=== PATIENT | male | born 1960 | race Caucasian/White ===

== ENCOUNTER 2025-04-17 18:42 | Inpatient (IN) | payer BC, SELFPAY ==
[2025-04-17 18:47] VITALS: BP 144/85
[2025-04-17 18:48] VITALS: BMI 24.3
[2025-04-17 21:02] LABS: Hematocrit 42.9 % (39.0-52.0); Hemoglobin 14.7 g/dL (13.0-18.0); Mean Corp Hgb Conc. 34.3 g/dL (33.0-37.0); Mean Corpuscular Volume 86.7 fL (80.0-94.0); Platelet Count 286 10^3/uL (130-400); Red Cell Dist. Width 13.2 % (11.5-14.5)
[2025-04-17] MEDS: COLACE PO (21:02)
[2025-04-17 21:11] LABS: INR 1.17; PT 15.0 Sec (11.4-14.6)
[2025-04-17 21:12] LABS: APTT 34.7 Sec (23.4-35.0)
[2025-04-17 21:16] LABS: ALT (SGPT) 36 U/L (0-50); AST (SGOT) 30 U/L (17-59); Albumin 4.0 g/dl (3.5-5.0); Alkaline Phosphatase 100 U/L (38-126); Total Protein 6.6 g/dl (6.3-8.2)
[2025-04-17 21:23] LABS: HDL Cholesterol 45 mg/dl; LDL Cholesterol, Calculated 78 mg/dl; Very Low Density Lipoprotein 13 mg/dl (0-30)
[2025-04-17 21:27] LABS: Blood Urea Nitrogen 15 mg/dl (9-20); Calcium 8.8 mg/dl (8.4-10.2); Carbon Dioxide 24 mmol/L (22-30); Chloride 101 mmol/L (98-107); Estimated Creatinine Clearance 105 ml/min; Glucose 115 mg/dl (70-99); Magnesium 2.1 mg/dl (1.6-2.3); Potassium 4.0 mmol/L (3.5-5.1); Sodium 132 mmol/L (135-145); eGFR > 60.00
--- NOTE | 2025-04-17 22:00 | PTCARENOTE ---
Obtained HS blood sugar, result was 86. After docking the Accucheck machine, the results did not focus puller to [facility]. Both accu check machines were not sending information over to [facility]. Sent one accucheck meter to the lab to check on why it
was not sending results.
[2025-04-17 23:19] VITALS: BP 146/78
[2025-04-18] VITALS (7 sets, daily range): BP systolic 106–132; BP diastolic 60–81; BMI 24.4
--- NOTE | 2025-04-18 00:33 | PTCARENOTE ---
Received pt from day shift staff, SUSI Feliz on the monitor, VSS. Pt was a transfer from [facility] post cath, site is the right radial, band on, CDI. Pt made high fall risk due to having a couple syncopal episodes at work and at home last
week. Pt stated on either Thursday or Thursday of last week, pt had an arrhythmia that was questionable Vtach. Orders placed by PA for removal of air and the band and a diet order was placed. PA also was ordered labwork to check electrolytes, coag
and BMP. Pt educated about not lifting anything with the right arm or pushing off the bed, pt verbalized understanding. Pt resting comfortably in bed, call munoz in reach.
--- NOTE | 2025-04-18 00:45 | PTCARENOTE ---
Removed pt's right radial band at 00:45, applied gauze and tegaderm, no oozing or hematoma noted. PT educated on not pushing himself up on right side or to lift anything over 10 lbs, pt verbalized understanding. Pt made NPO after midnight for MVD
workup today.
--- NOTE | 2025-04-18 04:22 | HPS.HSE ---
Family Physician
-
Family Physician: Wero Licea
Chief Complaint
-
Syncopal episodes
History of Present Illness
64 y/o pleasant gentleman with PMH T2DM (has been off meds x 9 months d/t lack of insurance until recently), Hyperlipidemia, GERD, Former smoker, currently vapes who had a syncopal episode on Thursday04/12/25 while at work prompting a visit to
[facility] ED. While at [facility] it was believed that his syncopal episode was d/t his Diabetes as he was noted to be hyperglycemic with hgb A1C of 12. He was treated and discharged home the next day on 04/13/25. While at home he had
another syncopal episode prompting a 911 call from his significant other. Upon arrival of the ambulance pt was awake and was taken to [facility] ED on 04/13/25. While at [place], he had a near syncopal episode and was noted to be in
ventricular tachycardia during that episode. Pt converted spontaneously from VT to NSR and did not require cardioversion. The decision was made to obtain a LHC (EKG was unrevealing, unsure if cardiac markers were obtained) on 04/17/25, which yielded
severe triple vessel CAD. The plan was to transfer pt to [facility] for CABG evaluation, but pt requested transfer to [facility] instead. Of note, pt denies ever having chest pain, SOB, or Diaphoresis. Admits to 'right shoulder pinched nerve discomfort'
which has been waxing and waning x 3 months and vomiting after his syncopal episode at work on Thursday. Pt presented to [facility] the evening of 04/17/25 without complaints, TR band was intact and was later removed. Pt did not come with any imaging or
reports.
Medical History
Past Medical History
Past Medical History: Reports Other
Additional Past Medical History:
-Severe 3V CAD
-Syncope x 3
-Ventricular tachycardia
-T2DM
-Hyperlipidemia
-GERD
-Former smoker (0.5 to 1 pk/day since age 12, quit at age 57)
-Currently vapes daily
-S/P repair of deviated septum, 2018
Past Surgical History: Reports None
Social History
Tobacco: Vaping (current)
Alcohol: Occasional
Drug: None
Personal: Partner
Living: With Family
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
Family History
Family History: Not pertinent
Allergies / Home Medications
Allergies reflects when Allergies were last updated in [facility].
Home Medications with original date entered in [facility]
Allergy/Medication List:
NKDA
Review of Systems
-
A 12 point ROS was completed and negative except as noted: Yes
Cardiac: Reports Syncope
Abdomen/GI: Reports Vomiting
Physical Exam
Vital Signs
Vital Signs
Temp Pulse Resp BP Pulse Ox
98.6 F 65 18 146/78 95
04/17/25 23:19 04/17/25 23:30 04/17/25 23:19 04/17/25 23:19 04/17/25 23:30
Physical Exam
General: Well Developed, Well Nourished, Comfortable and Conversant
HEENT: NormoCephalic, Anicteric, Atraumatic and PERRLA
Respiratory: Clear
Cardiac: S1/S2 and Regular Rhythm
Breast: Deferred by me
GI: Soft, Non Tender, Non Distended and Normal Bowel Sounds
Rectal: Deferred by Provider
Genito-urinary: Deferred by me
Skin: Warm and Dry
Neuro: Awake, Alert, Oriented, AO x 3 and No Motor Deficits
Psych: Calm
Laboratory Results
-
04/17/25 20:46
04/17/25 20:46
Laboratory Results
PT 15.0 Sec (11.4-14.6) H 04/17/25 20:46
INR 1.17 04/17/25 20:46
APTT 34.7 Sec (23.4-35.0) 04/17/25 20:46
Total Bilirubin 0.8 mg/dl (0.2-1.3) 04/17/25 20:46
AST 30 U/L (17-59) 04/17/25 20:46
ALT 36 U/L (0-50) 04/17/25 20:46
Alkaline Phosphatase 100 U/L (38-126) 04/17/25 20:46
Impression/Plan
-
IMPRESSION:
-Severe 3V CAD
-Syncope x 3
-Ventricular tachycardia
-T2DM
-Hyperlipidemia
-GERD
-Former smoker (0.5 to 1 pk/day since age 12, quit at age 57)
-Currently vapes daily
-S/P repair of deviated septum, 2018
PLAN:
-CABG evaluation
-Awaiting Imaging additional medical records from previous hospitals
-Will consult Cardiology
-Will consult Pulmonary
-Will consult Diabetes education/management
-Will cont. to closely monitor
[2025-04-18] MEDS: NOVOLOG FLEXPEN-MODERATE RESISTANCE SC ×2 (06:19→11:20)
--- NOTE | 2025-04-18 06:22 | PTCARENOTE ---
Pt. morning blood sugar obtained, result was 71. Pt resting comfortably in bed, call munoz in reach.
[2025-04-18 07:28] LABS: Urine Character Clear (Clear)
[2025-04-18 07:54] LABS: Glucose - Point of Care 71 mg/dl (70-99)
[2025-04-18 07:57] LABS: Glucose - Point of Care 86 mg/dl (70-99)
--- NOTE | 2025-04-18 08:00 | PTCARENOTE ---
Assumed care of pt from prev nsg shift; Pt AAOX3 w/no c/o CP or SOB. Pt is SB on telemetry monitoring. VSS w/HR in the 50'-60's & BP 116/70 this AM. Plan of care discussed w/pt. R radial site w/dressing C/D/I; no signs or symptoms of bleeding or
hematoma. No additional needs at this time. Pt w/call munoz within reach.
[2025-04-18 08:14] LABS: Urine Squamous Cell 0-2 /LPF (Few)
[2025-04-18 08:15] LABS: Urine Red Blood Cell 21-25 /HPF (0-2)
--- NOTE | 2025-04-18 08:33 | CON.CAR ---
Addendum entered and electronically signed by Jamir Muñiz MD 04/18/25 12:29:
I saw and examined the patient.
The Diagrammer's note was reviewed and I agree with the note.
Comment:
GEN: No distress, awake, Ox3
HEENT: supple, anicteric, mmm
LUNGS: CTA, no wheezes/rales
CV: Reg, S1/S2, 1/6 syst LSB, no gallop
ABD: soft, BS+, NT/ND
EXT: No edema
NEURO: Gross non-focal
SKIN: No rash
PLan:
64-year-old male with past medical history of diabetes, hypertension, and GERD with a past medical history of smoking as well and vaping presents with an episode of syncope/VT. Cardiac cath and revealed three-vessel coronary artery disease. He was
transferred to [facility] for CABG evaluation. He overall feels well. Denies chest pains or shortness of breath.
Check echocardiogram report and carotid ultrasound.
Continue metoprolol, aspirin, rosuvastatin 20 mg daily.
LDL is 78 with HDL of 45.
Continue insulin and sugar control.
Addendum entered and electronically signed by Faiza Pérez PA-C 04/18/25 09:41:
Cardiac catheterization from 04/17/2025 at [facility]: Three-vessel CAD. 70% proximal to mid LAD with IFR of 0.80. Left circumflex: 80% proximal stenosis at bifurcation of OM1. RCA: Proximal 100% JUDGE'S CLERK.
Original Note:
Consultation
Consultation Request
Date/Time Consultation Requested: 04/17/2025
Date/Time Consultation Performed: 04/18/2025
Requesting Provider: Raven Morrison
Performing Provider: Faiza Pérez PA-C for Dr. Muñiz
Reason for Consultation: Multivessel coronary artery disease
Medical History
-
History of Present Illness:
Patient is a 64-year-old male with past medical history significant for type 2 diabetes, hyperlipidemia, GERD and history of smoking who was transferred from [facility] on 04/17/2025 after being diagnosed with multivessel
coronary artery disease. Over last week patient had multiple episodes of lightheaded/dizziness and syncope and was found to have ventricular tachycardia. Patient had syncopal episode on 04/12/2025 while at work prompting him to seek treatment at
[facility] emergency department. He was treated and discharged home the next day. He had a second episode of syncope while sitting on the couch at home on 04/13/2025 prompting his significant other to call 911 and was taken to [facility] 04/13/2025. Patient had several near syncopal episodes where he felt lightheaded and dizzy and was found to have ventricular tachycardia on telemetry. Patient reports he had echocardiogram, carotid ultrasound, CT of
chest. Unfortunately records are not available at time of this evaluation. They have been requested. He underwent cardiac catheterization which demonstrated severe multivessel CAD. Patient requested transfer to [facility] for CT surgery consult.
Patient admits prior to his recent syncopal events he was fairly active going for walks with his dog most days of the week. He denies having chest pain shortness of breath or changes in functional capacity. He does note right arm/shoulder pain
which he reports is from a pinched nerve in his neck. He has history of tobacco abuse/smoking and currently vapes.
Past medical history:
Multivessel coronary artery disease
Ventricular tachycardia
Recurrent syncope secondary to ventricular tachycardia
Type 2 diabetes
Hyperlipidemia
GERD
History of smoking/tobacco abuse
Pulmonary nodules
Cervical radiculopathy
Past Medical History
Past Medical History: Other (See HPI)
Social History
Tobacco: Smoker (Prior history of tobacco abuse quit at age 57, current use of vape)
Alcohol: Occasional (Rare beer)
Drug: None
Personal: Single
Living: Other (Significant other Asuncion)
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
Family History
Family History: Other (Mother from gastric cancer. Father had valvular heart disease)
Allergies / Home Medications
Allergy/AdvReac Type Severity Reaction Status Date / Time
No Known Allergies Allergy Unverified 09/11/12 14:10
�Medication �Instructions �Recorded �Confirmed �Type
penicillin V potassium 500 mg 500 mg PO Q6 #40 tabs 09/11/12 Rx
tablet
Review of Systems
-
History Source: Patient
All other systems: Negative unless noted
Physical Exam
Vital Signs
Temp Pulse Resp BP Pulse Ox
98.3 F 65 17 116/70 98
04/18/25 08:18 04/18/25 08:19 04/18/25 08:18 04/18/25 08:19 04/18/25 08:18
GEN: No distress, awake, Ox3
HEENT: supple, anicteric, mmm
LUNGS: CTA, no wheezes/rales
CV: Reg, S1/S2, no murmur, rub or gallop
ABD: soft, BS+, NT/ND
EXT: No edema, clubbing or cyanosis
NEURO: Gross non-focal
SKIN: No rash, warm, dry, pink
Lab Results
04/17/25 20:46
04/17/25 20:46
Impression / Plan
-
PCP: Wero Licea
Supervisor Testing: Mulugeta Velasco ([facility])
Impression:
Transfer from [facility] 04/17/2025 for CABG
Recurrent syncope secondary to ventricular tachycardia
Multivessel coronary artery disease
Type 2 diabetes
Hyperlipidemia
GERD
History of smoking/tobacco abuse
Pulmonary nodules
Cervical radiculopathy
Echo (OSH): requested
Cardiac cath [facility]: Multivessel coronary artery disease. Official report requested
Plan:
-Recurrent syncopal episodes over last week found to have ventricular tachycardia and underwent cardiac catheterization which demonstrated multivessel coronary artery disease
-CABG evaluation with CT surgery. Date of surgery pending
-Will check echocardiogram to assess LV function
-Given ventricular tachycardia start low-dose beta-wali Lopressor 12.5 mg twice daily.
-Continue to monitor on telemetry. Keep K greater than 4 and mag greater than 2
-Continue aspirin.
-Check lipids. Given multivessel coronary artery disease would utilize moderate intensity at 20 mg
-History of type 2 diabetes. Patient reports labs in drug therapy secondary to loss of insurance in past. Previously was on Farxiga and metformin. Per patient hemoglobin A1c was 12% at outside hospital. Consult speech communication instructor. Patient
currently getting insulin.
-Cardiac catheterization, echocardiogram, carotid ultrasound records have been requested from outside hospitals
[facility] :
Patient is a 64-year-old male with past medical history significant for type 2 diabetes, hyperlipidemia, GERD and history of smoking who was transferred from [facility] on 04/17/2025 after being diagnosed with multivessel
coronary artery disease. Over last week patient had multiple episodes of lightheaded/dizziness and syncope and was found to have ventricular tachycardia. Patient had syncopal episode on 04/12/2025 while at work prompting him to seek treatment at
[facility] emergency department. He was treated and discharged home the next day. He had a second episode of syncope while sitting on the couch at home on 04/13/2025 prompting his significant other to call 911 and was taken to . "[facility] 04/13/2025. Patient had several near syncopal episodes where he felt lightheaded and dizzy and was found to have ventricular tachycardia on telemetry. Patient reports he had echocardiogram, carotid ultrasound, CT of
chest. Unfortunately records are not available at time of this evaluation. They have been requested. He underwent cardiac catheterization which demonstrated severe multivessel CAD. Patient requested transfer to [facility] for CT surgery consult.
Patient admits prior to his recent syncopal events he was fairly active going for walks with his dog most days of the week. He denies having chest pain shortness of breath or changes in functional capacity. He does note right arm/shoulder pain
which he reports is from a pinched nerve in his neck. He has history of tobacco abuse/smoking and currently vapes.
Data Reviewed
-
EKG: Report Reviewed by me, Discussed with Physician, Discussed with Nurse and Discussed with Patient
Labs: Labs Reviewed by me, Discussed with Physician and Discussed with Patient
Old Records: Requested
[2025-04-18 08:52] LABS: Glycohemoglobin (HgbA1c) 11.4 % (4.0-5.9)
[2025-04-18 09:18] LABS: Glucose - Point of Care 105 mg/dl (70-99)
[2025-04-18] MEDS: ASPIR LOW (ENTERIC COATED) 81 MG PO (09:42)
[2025-04-18] MEDS: COLACE PO ×2 (09:42→19:58)
[2025-04-18] MEDS: PROTONIX 40 MG PO (09:42)
[2025-04-18 11:25] LABS: Glucose - Point of Care 117 mg/dl (70-99)
[2025-04-18 12:28] LABS: Glucose - Point of Care 236 mg/dl (70-99)
[2025-04-18] MEDS: LOPRESSOR 12.5 MG PO ×2 (13:15→22:05)
--- NOTE | 2025-04-18 13:33 | PN.DE.MGMTRT ---
Insulin Management
- -
04/18/2025 Diabetes Management Consult
Patient admitted from after multiple episodes of syncope. He had recently been at [facility] 04/12 to 04/13 for syncope. Discharged then had another episode of syncope and went to where he was found to have multivessel CAD. PMH HLD,
GERD, diabetes, vtach, vapes daily. Prior to admission was not taking medication for diabetes. A1C 11.3%, cr .7, eGFR > 60.
Patient is awake, alert and oriented, able to discuss diabetes care. at bedside very supportive. Patient states he is followed by his primary doctor, Anuja for diabetes care, but he recently suggested he see endocrine. He has an appointment
with Natali Patterson in July 2025. States he has a [employer] meter but has not really used in in a long time. He was prescribed Farxiga and metformin but had insurance issues and did not take them for 1 year. He states at they gave his a long
acting insulin 36 units daily.
Patient received no insulin since admission. Fasting glucose today 105, glucose after breakfast pre lunch 236. Will give 15 units lantus now and start 4 units novolog AC with Moderate corrective insulin.
Discussed with nurse.
Will follow.
Diabetes History
- -
Type of Diabetes: 2
Pre-Admission Diabetes Regimen
04/17/25
20:46
Creatinine 0.7
Lab Results
Hemoglobin A1c 11.4 % (4.0-5.9) H 04/17/25 20:46
Insulin Pump Settings
IP Diabetes Regimen
04/17/25 04/17/25 04/18/25
20:46 21:22 06:17
Glucose 115 H
POC Glucose 86 71
04/18/25 04/18/25 04/18/25
09:17 11:08 12:27
Glucose
POC Glucose 105 H 117 H 236 H
Meal type: Breakfast
Meal type: Dinner
Amount consumed: 100%
Amount consumed: 100%
Patient Education
--- NOTE | 2025-04-18 14:08 | CM ---
Chart reviewed. Patient is pending CT Surgery evaluation. Patient is independent of ADLS, lives with his fiance in a 2 STH, 2 ABHI, 0 DME. Plan is for the patient to return home. CM to follow
[2025-04-18 14:43] LABS: Glucose - Point of Care 260 mg/dl (70-99)
[2025-04-18] MEDS: NOVOLOG FLEXPEN 4 UNITS SC ×2 (14:44→17:25)
[2025-04-18] MEDS: LANTUS 0.15 UNITS SC (14:44)
--- NOTE | 2025-04-18 16:40 | W.PN.UPDATE ---
Update Note
Progress Note Update
STS RISK SCORE
Procedure Type:�Isolated CABG
Perioperative Outcome Estimate %
Operative Mortality 0.644%
Morbidity & Mortality 4.22%
Stroke 1.04%
Renal Failure 0.383%
Reoperation 1.96%
Prolonged Ventilation 2.02%
Deep Sternal Wound Infection 0.101%
Long Hospital Stay (>14 days) 2.41%
Short Hospital Stay (<6 days)* 60.7%
Clinical Summary
Planned Surgery: Isolated CABG, Urgent, First cardiovascular surgery
Demographics: 64 year old, male, 72.7kg, 173cm, BMI: 24.3 kg/m�
Lab Values: Creatinine: 0.7 mg/dL, Hematocrit: 42.9%, WBC Count: 10 10�/�L, Platelet Count: 536274 cells/�L
Substance Abuse: Never smoker
Risk Factors / Comorbidities: Diabetes Mellitus , Hypertension
Pulmonary RF: Moderate CLD
Cardiac Status: NYHA Class II, Ejection Fraction = 63%
Coronary Artery Disease: 3 vessels diseased, Proximal LAD Stenosis >=70%, Unstable Angina
[2025-04-18 16:47] LABS: Glucose - Point of Care 178 mg/dl (70-99)
[2025-04-18] MEDS: NOVOLOG FLEXPEN-MODERATE RESISTANCE 1 UNITS SC (17:24)
[2025-04-18] MEDS: CRESTOR 20 MG PO (17:27)
[2025-04-18] MEDS: OCEAN, SALINE MIST 2 SPRAYS NASAL (22:07)
[2025-04-18 22:28] LABS: Glucose - Point of Care 193 mg/dl (70-99)
--- NOTE | 2025-04-18 23:16 | PTCARENOTE ---
Pt rec'd at change of shift awake,alert no c/o cp. Sinus on telemetry. Pre op teaching begun for CABG prep tomm night. Right radial site with DDI, good radial pulse. Pt provided Living will paperwork. Copies made and placed in chart. Pt given back
original.
[2025-04-19] VITALS (9 sets, daily range): BP systolic 126–151; BP diastolic 64–101; BMI 24.2
[2025-04-19 04:44] LABS: Hematocrit 42.4 % (39.0-52.0); Hemoglobin 14.5 g/dL (13.0-18.0); Mean Corp Hgb Conc. 34.2 g/dL (33.0-37.0); Mean Corpuscular Volume 89.1 fL (80.0-94.0); Platelet Count 254 10^3/uL (130-400); Red Cell Dist. Width 13.0 % (11.5-14.5)
[2025-04-19 05:37] LABS: Blood Urea Nitrogen 14 mg/dl (9-20); Calcium 8.8 mg/dl (8.4-10.2); Carbon Dioxide 28 mmol/L (22-30); Chloride 102 mmol/L (98-107); Estimated Creatinine Clearance 91 ml/min; Glucose 136 mg/dl (70-99); Magnesium 2.0 mg/dl (1.6-2.3); Potassium 4.1 mmol/L (3.5-5.1); Sodium 135 mmol/L (135-145); eGFR > 60.00
[2025-04-19 07:46] LABS: Glucose - Point of Care 156 mg/dl (70-99)
[2025-04-19] MEDS: NOVOLOG FLEXPEN-MODERATE RESISTANCE 1 UNITS SC ×2 (08:51→13:30)
[2025-04-19] MEDS: NOVOLOG FLEXPEN 4 UNITS SC ×3 (08:52→17:30)
[2025-04-19] MEDS: COLACE 100 MG PO ×2 (08:54→20:08)
[2025-04-19] MEDS: ASPIR LOW (ENTERIC COATED) 81 MG PO (08:54)
[2025-04-19] MEDS: PROTONIX 40 MG PO (08:54)
[2025-04-19] MEDS: LOPRESSOR 12.5 MG PO ×2 (08:54→20:03)
[2025-04-19] MEDS: LANTUS 0.15 UNITS SC (10:45)
--- NOTE | 2025-04-19 10:48 | W.PN.CARDCBS ---
Today's Communication / Plan
-
CABG evaluation with CT surgery ongoing, date of surgery pending
Echo with preserved EF
Reviewed cath with pt.
Cont ASA, Crestor, Metoprolol
Lipids with LDL goal <70, LDL was 78.
History of type 2 diabetes, poor control.
Patient reports lapse in drug therapy secondary to loss of insurance in past. Previously was on Farxiga and metformin. Per patient hemoglobin A1c was 12% at outside hospital.
DM educator
Impression / Plan
-
.
PCP: Wero Licea
Pathology Manager: Mulugeta Velasco ([facility])
Impression:
Transfer from [facility] 04/17/2025 for CABG
Recurrent syncope secondary to ventricular tachycardia
Multivessel coronary artery disease
Type 2 diabetes
Hyperlipidemia
GERD
History of smoking/tobacco abuse
Pulmonary nodules
Cervical radiculopathy
Cardiac catheterization from 04/17/2025 at [facility]: Multivessel coronary artery disease 70% proximal to mid LAD with IFR of 0.80. Left circumflex: 80% proximal stenosis at bifurcation of OM1. RCA: Proximal 100% CHARGEBACK SPECIALIST.
Echo [facility] Apr 18 2025: Ejection fraction is 60-65%, mild LVH, no significant valve dz.
Plan:
64-year-old male with past medical history of diabetes, hypertension, and GERD with a past medical history of smoking as well and vaping presents with an episode of syncope/VT. Cardiac cath and revealed three-vessel coronary artery disease. He was
transferred to [facility] for CABG evaluation.
-Recurrent syncopal episodes over last week found to have ventricular tachycardia and underwent cardiac catheterization which demonstrated multivessel coronary artery disease
CABG evaluation with CT surgery ongoing, date of surgery pending
Echo with preserved EF
Reviewed cath with pt.
Cont ASA, Crestor, Metoprolol
Lipids with LDL goal <70, LDL was 78.
History of type 2 diabetes, poor control.
Patient reports lapse in drug therapy secondary to loss of insurance in past. Previously was on Farxiga and metformin. Per patient hemoglobin A1c was 12% at outside hospital.
DM educator
[facility] :
Patient is a 64-year-old male with past medical history significant for type 2 diabetes, hyperlipidemia, GERD and history of smoking who was transferred from [facility] on 04/17/2025 after being diagnosed with multivessel
coronary artery disease. Over last week patient had multiple episodes of lightheaded/dizziness and syncope and was found to have ventricular tachycardia. Patient had syncopal episode on 04/12/2025 while at work prompting him to seek treatment at ""[facility] emergency department. He was treated and discharged home the next day. He had a second episode of syncope while sitting on the couch at home on 04/13/2025 prompting his significant other to call 911 and was taken to [facility] 04/13/2025. Patient had several near syncopal episodes where he felt lightheaded and dizzy and was found to have ventricular tachycardia on telemetry. Patient reports he had echocardiogram, carotid ultrasound, CT of
chest. Unfortunately records are not available at time of this evaluation. They have been requested. He underwent cardiac catheterization which demonstrated severe multivessel CAD. Patient requested transfer to [facility] for CT surgery consult.
Patient admits prior to his recent syncopal events he was fairly active going for walks with his dog most days of the week. He denies having chest pain shortness of breath or changes in functional capacity. He does note right arm/shoulder pain
which he reports is from a pinched nerve in his neck. He has history of tobacco abuse/smoking and currently vapes.
Progress Note - Pathology Manager
Subjective
Date of Service: April 19, 2025
Pt seen and examined. No complaints. No chest pain or shortness of breath.
Objective
Labs:
04/19/25 04:30
04/19/25 04:30
Labs
Hgb 14.5 g/dL (13.0-18.0) 04/19/25 04:30
Hct 42.4 % (39.0-52.0) 04/19/25 04:30
Plt Count 254 10^3/uL (130-400) 04/19/25 04:30
PT 15.0 Sec (11.4-14.6) H 04/17/25 20:46
INR 1.17 04/17/25 20:46
APTT 34.7 Sec (23.4-35.0) 04/17/25 20:46
Sodium 135 mmol/L (135-145) 04/19/25 04:30
Potassium 4.1 mmol/L (3.5-5.1) 04/19/25 04:30
BUN 14 mg/dl (9-20) 04/19/25 04:30
Creatinine 0.8 mg/dL (0.7-1.3) 04/19/25 04:30
Glucose 136 mg/dl (70-99) H 04/19/25 04:30
Vital Signs and I&O:
Vital Signs
Temp Pulse Resp BP Pulse Ox
98.0 F 68 18 127/71 95
04/19/25 07:50 04/19/25 09:30 04/19/25 07:50 04/19/25 07:50 04/19/25 07:50
Vital Signs
Temp Pulse Resp BP Pulse Ox
98.0 F 68 18 127/71 95
04/19/25 07:50 04/19/25 09:30 04/19/25 07:50 04/19/25 07:50 04/19/25 07:50
Intake & Output
04/17/25 04/18/25 04/19/25 04/20/25
06:59 06:59 06:59 06:59
Intake Total 480 / 480 480 / 480
Balance 480 / 480 480 / 480
Physical Exam
Physical Exam
General: No acute distress, AAOX3
Neck: Negative JVD
Heart: Regular, Negative S3 positive S1/S2, Negative S4, No murmur
Lungs: CTA b/l, negative wheezes/rales/rhonchi
Abd: Positive BS, NT/ND, neg rebound/rigidity/guarding
Ext: Negative cyanosis/clubbing/edema
Neuro: nonfocal
[2025-04-19 12:59] LABS: Glucose - Point of Care 191 mg/dl (70-99)
--- NOTE | 2025-04-19 13:02 | PTCARENOTE ---
04/19/2025 DIABETES EDUCATION CONSULT
I met with patient to review diabetes management. He has had DM2 for years, in the past had an A1c of 6.7% when exercising and most recent A1c of 8.2%. A1c on 04/17/2025 is 11.4%. He will have CABG on 04/19/2025, was previously at other ""hospitals for cardiac evaluation and insulin instruction. Was prescribed medications on discharge but did not pickling machine operator at pharmacy. Advised patient to reconcile meds with our MD's and follow [facility] discharge instructions. He has a first appt
with Erin Hernandes at [facility] in July,. His original appointment was last week in April but he pushed it back to July 2025.
I educated on physiology of T2D, organ damage, managing with medications, monitoring BG, nutrition, activity, sleep and managing stress. I reinforced signs of hyperglycemia, hypoglycemia and hypoglycemia protocol; BS parameters and recommended HbA1c
goals, glucometer and CGM instructions, glucose tracker, medic alert bracelet and outpatient DSME program. Written material provided.
He has a glucometer, declined demonstration. I educated patient to ensure his test strips are not .
I educated and demonstrated on insulin injection technique, timing, and storage. Discussed long and short acting insulin; onset/peak/duration, and encouraged her to administer self injections with RN supervision while admitted. Spoke to RN.
Discussed normal target glucose ranges and a monitoring schedule 15 minutes before each meal when prescribed Novolog, and before bedtime.
Encouraged patient to follow up with PCP for post d/c appointment and to monitor medication and blood glucose levels. Patient verbalized understanding.
--- NOTE | 2025-04-19 13:13 | PN.DE.MGMTRT ---
Insulin Management
- -
04/19/2025 Diabetes Management Consult Follow up
Patient admitted from after multiple episodes of syncope. He had recently been at [facility] 04/12 to 04/13 for syncope. Discharged then had another episode of syncope and went to where he was found to have multivessel CAD. PMH HLD,
GERD, diabetes, vtach, vapes daily. Prior to admission was not taking medication for diabetes. A1C 11.3%, cr .7, eGFR > 60.
Patient is awake, alert and oriented, able to discuss diabetes care. Sister at bedside very supportive. Patient states he is followed by his primary doctor, Anuja for diabetes care, but he recently suggested he see endocrine. He has an
appointment with Natali Patterson in July 2025. States he has a [employer] meter but has not really used in in a long time. He was prescribed Farxiga and metformin but had insurance issues and did not take them for 1 year. He states at they
gave his a long acting insulin 36 units daily.
04/18 Received no insulin since admission. Fasting glucose today 105, glucose after breakfast pre lunch 236. 15 units lantus now and start 4 units novolog AC with Moderate corrective insulin.
04/19 Fasting glucose 136. Will continue current regimen lantus 15 units AM with novolog 4 units AC and moderate corrective insulin.
Discussed with nurse.
Will follow.
Diabetes History
- -
Type of Diabetes: 2 requiring insulin
Pre-Admission Diabetes Regimen
04/19/25
04:30
Creatinine 0.8
Lab Results
Hemoglobin A1c 11.4 % (4.0-5.9) H 04/17/25 20:46
Insulin Pump Settings
IP Diabetes Regimen
04/18/25 04/18/25 04/18/25
14:42 16:46 22:27
Glucose
POC Glucose 260 H 178 H 193 H
04/19/25 04/19/25 04/19/25
04:30 07:44 12:58
Glucose 136 H
POC Glucose 156 H 191 H
Meal type: Breakfast
Meal type: Dinner
Amount consumed: 100%
Amount consumed: 100%
Patient Education
--- NOTE | 2025-04-19 14:00 | CM ---
Chart reviewed. Patient is independent of ADLS, lives with his fiance in a 2 STH, 2 ABHI, 0 DME. Reviewed preoperative and postoperative instructions and restrictions with patient's sister Maritza,along with showering instructions. Patient did
not want to hear. Gave patient's sister a cardiac surgery book. Patient is agreeable to a home visit by CT Transitional Care RN. Plan is for the patient to return home with CT Transitional RN. CM to follow
[2025-04-19 17:22] LABS: Glucose - Point of Care 211 mg/dl (70-99)
[2025-04-19] MEDS: NOVOLOG FLEXPEN-MODERATE RESISTANCE 3 UNITS SC (17:30)
[2025-04-19] MEDS: CRESTOR 20 MG PO (17:31)
[2025-04-19 21:57] LABS: Glucose - Point of Care 132 mg/dl (70-99)
--- NOTE | 2025-04-19 23:37 | PTCARENOTE ---
Received pt from previous shift, AAOx3, NS on the monitor in the 70's, VSS. Right radial cath site is MICHAEL and ecchymotic, with good pulse. Pt. is pre op for CABG in the AM. Pt was clipped and washed self at the sink without feeling lightheaded or
dizzy. All prep education was explained to the pt and pt verbalized understanding. Pt resting comfortably in bed and will call if needed.
[2025-04-20] VITALS (12 sets, daily range): BP systolic 89–123; BP diastolic 53–77; BMI 24.0
[2025-04-20 05:47] LABS: Blood Urea Nitrogen 14 mg/dl (9-20); Calcium 9.2 mg/dl (8.4-10.2); Carbon Dioxide 31 mmol/L (22-30); Chloride 100 mmol/L (98-107); Estimated Creatinine Clearance 81 ml/min; Glucose 131 mg/dl (70-99); Magnesium 2.1 mg/dl (1.6-2.3); Potassium 4.2 mmol/L (3.5-5.1); Sodium 137 mmol/L (135-145); eGFR > 60.00
[2025-04-20] MEDS: MAGNESIUM OXIDE 400 MG PO (06:25)
[2025-04-20] MEDS: LOPRESSOR 12.5 MG PO (06:25)
[2025-04-20] MEDS: PROTONIX 40 MG PO (06:25)
[2025-04-20] MEDS: BACTROBAN 2% OINTMENT 1 APPLIC NASAL ×2 (06:27→19:53)
--- NOTE | 2025-04-20 06:29 | W.CVOR.SURPR ---
CVOR Surgeon Immed Pre Op
-
I have examined this patient prior to performance of the scheduled procedure.
The patient's condition is unchanged from the time of the dictated/written History and
Physical and the patient is able to undergo the scheduled procedure.
--- NOTE | 2025-04-20 06:56 | PTCARENOTE ---
Second round of OR prep hygiene complete. Pt did CHG shower at the sink and then the CHG bath cloths. Educated pt on preop medications that were given and pt verbalized understanding. Pt has no complaints at this time and is resting comfortably in
bed with call munoz if needed.
--- NOTE | 2025-04-20 08:06 | PN.DE.MGMTRT ---
Insulin Management
- -
04/20/2025 Diabetes Management Consult Follow up
Patient admitted from 04/17 after multiple episodes of syncope. He had recently been at [facility] 04/12 to 04/13 for syncope. Discharged then had another episode of syncope and went to where he was found to have multivessel CAD. PMH
HLD, GERD, diabetes, vtach, vapes daily. Prior to admission was not taking medication for diabetes. A1C 11.3%, cr .9, eGFR > 60.
Patient is for OR today for CABG, not in room. Yesterday Fasting glucose 136. Received lantus 15 units AM with novolog 4 units AC and moderate corrective insulin.
Patient to receive Critical Care glycemic protocol insulin infusion s/p OR.
Discussed with nurse.
Will follow.
Diabetes History
- -
Type of Diabetes: 2 requiring insulin
Pre-Admission Diabetes Regimen
04/20/25
05:00
Creatinine 0.9
Lab Results
Hemoglobin A1c 11.4 % (4.0-5.9) H 04/17/25 20:46
Insulin Pump Settings
IP Diabetes Regimen
04/19/25 04/19/25 04/19/25
12:58 17:21 21:56
Glucose
POC Glucose 191 H 211 H 132 H
04/20/25
05:00
Glucose 131 H
POC Glucose
Meal type: Breakfast
Amount consumed: 100%
Amount consumed: 100%
Patient Education
[2025-04-20 08:18] LABS: ACT+ - POC 115 Seconds (82-134)
[2025-04-20 08:19] LABS: Glucose - Point of Care 142 mg/dl (70-99)
[2025-04-20 08:52] LABS: Urine Character Clear (Clear)
[2025-04-20 09:04] LABS: Urine Squamous Cell 16-20 /LPF (Few)
[2025-04-20 10:07] LABS: ACT+ - POC 929 Seconds (82-134)
--- NOTE | 2025-04-20 10:23 | CM ---
pt in OR today, cm to follow.
[2025-04-20 10:31] LABS: B.E. - POC 0.4 mmol/L; Glucose - POC 176 mg/dl (70-99); HCO3 - POC 26 mmol/L (21-28); Hematocrit - POC 40 % PCV (42-52); Hemodilution- POC No; Hemoglobin Calculated - POC 13.6; Ionized Calcium - POC 1.13 mmol/L (1.15-1.33); Lactate - POC 0.35 mmol/L (0.36-0.75); O2 Saturation %Calculated-POC 100.0 % (94-98); PCO2 - POC 43 mmHg (35-48); PO2 - POC 379 mmHg (83-108); Potassium - POC 3.7 mmol/L (3.5-5.1); Sodium - POC 140 mmol/L (136-145); Specimen Type - POC Arterial; pH - POC 7.39 (7.35-7.45)
[2025-04-20 10:48] LABS: ACT+ - POC 800 Seconds (82-134)
[2025-04-20 11:00] LABS: B.E. - POC 2.4 mmol/L; Glucose - POC 141 mg/dl (70-99); HCO3 - POC 24 mmol/L (21-28); Hematocrit - POC 32 % PCV (42-52); Hemodilution- POC Yes; Hemoglobin Calculated - POC 10.9; Ionized Calcium - POC 0.93 mmol/L (1.15-1.33); Lactate - POC 0.35 mmol/L (0.36-0.75); O2 Saturation %Calculated-POC 100.0 % (94-98); PCO2 - POC 29 mmHg (35-48); PO2 - POC 416 mmHg (83-108); Potassium - POC 5.0 mmol/L (3.5-5.1); Sodium - POC 138 mmol/L (136-145); Specimen Type - POC Arterial; pH - POC 7.54 (7.35-7.45)
[2025-04-20] MEDS: NOVOLOG FLEXPEN SC ×4 (11:07→16:30)
[2025-04-20] MEDS: NOVOLOG FLEXPEN-MODERATE RESISTANCE SC ×2 (11:08→14:32)
[2025-04-20] MEDS: COLACE PO (11:08)
[2025-04-20] MEDS: ASPIR LOW (ENTERIC COATED) PO (11:08)
[2025-04-20] MEDS: LANTUS SC (11:08)
[2025-04-20] MEDS: PROTONIX PO (11:08)
[2025-04-20 11:17] LABS: ACT+ - POC 675 Seconds (82-134)
[2025-04-20 12:02] LABS: ACT+ - POC 537 Seconds (82-134)
[2025-04-20 12:17] LABS: B.E. - POC 1.0 mmol/L; Glucose - POC 165 mg/dl (70-99); HCO3 - POC 25 mmol/L (21-28); Hematocrit - POC 32 % PCV (42-52); Hemodilution- POC Yes; Hemoglobin Calculated - POC 10.8; Ionized Calcium - POC 1.00 mmol/L (1.15-1.33); Lactate - POC < 0.30 mmol/L (0.36-0.75); O2 Saturation %Calculated-POC 99.9 % (94-98); PCO2 - POC 38 mmHg (35-48); PO2 - POC 274 mmHg (83-108); Potassium - POC 4.4 mmol/L (3.5-5.1); Sodium - POC 138 mmol/L (136-145); Specimen Type - POC Arterial; pH - POC 7.43 (7.35-7.45)
[2025-04-20 12:29] LABS: B.E. - POC 2.0 mmol/L; Glucose - POC 159 mg/dl (70-99); HCO3 - POC 27 mmol/L (21-28); Hematocrit - POC 28 % PCV (42-52); Hemodilution- POC Yes; Hemoglobin Calculated - POC 9.7; Ionized Calcium - POC 0.99 mmol/L (1.15-1.33); Lactate - POC 0.63 mmol/L (0.36-0.75); O2 Saturation %Calculated-POC 99.9 % (94-98); PCO2 - POC 40 mmHg (35-48); PO2 - POC 310 mmHg (83-108); Potassium - POC 3.7 mmol/L (3.5-5.1); Sodium - POC 140 mmol/L (136-145); Specimen Type - POC Arterial; pH - POC 7.43 (7.35-7.45)
[2025-04-20 12:37] LABS: ACT+ - POC 460 Seconds (82-134)
[2025-04-20 12:56] LABS: B.E. - POC 3.6 mmol/L; Glucose - POC 120 mg/dl (70-99); HCO3 - POC 28 mmol/L (21-28); Hematocrit - POC 29 % PCV (42-52); Hemodilution- POC Yes; Hemoglobin Calculated - POC 9.7; Ionized Calcium - POC 1.02 mmol/L (1.15-1.33); Lactate - POC 1.24 mmol/L (0.36-0.75); O2 Saturation %Calculated-POC 99.9 % (94-98); PCO2 - POC 43 mmHg (35-48); PO2 - POC 340 mmHg (83-108); Potassium - POC 3.3 mmol/L (3.5-5.1); Sodium - POC 143 mmol/L (136-145); Specimen Type - POC Arterial; pH - POC 7.43 (7.35-7.45)
[2025-04-20 13:10] LABS: ACT+ - POC 710 Seconds (82-134)
[2025-04-20 13:31] LABS: B.E. - POC 3.2 mmol/L; Glucose - POC 106 mg/dl (70-99); HCO3 - POC 27 mmol/L (21-28); Hematocrit - POC 28 % PCV (42-52); Hemodilution- POC Yes; Hemoglobin Calculated - POC 9.6; Ionized Calcium - POC 1.00 mmol/L (1.15-1.33); Lactate - POC 1.56 mmol/L (0.36-0.75); O2 Saturation %Calculated-POC 99.9 % (94-98); PCO2 - POC 37 mmHg (35-48); PO2 - POC 239 mmHg (83-108); Potassium - POC 3.6 mmol/L (3.5-5.1); Sodium - POC 141 mmol/L (136-145); Specimen Type - POC Arterial; pH - POC 7.47 (7.35-7.45)
[2025-04-20 13:39] LABS: ACT+ - POC 126 Seconds (82-134)
[2025-04-20 14:24] LABS: B.E. - POC 1.9 mmol/L; Glucose - POC 87 mg/dl (70-99); HCO3 - POC 27 mmol/L (21-28); Hematocrit - POC 28 % PCV (42-52); Hemodilution- POC Yes; Hemoglobin Calculated - POC 9.4; Ionized Calcium - POC 1.21 mmol/L (1.15-1.33); Lactate - POC 1.17 mmol/L (0.36-0.75); O2 Saturation %Calculated-POC 99.9 % (94-98); PCO2 - POC 44 mmHg (35-48); PO2 - POC 343 mmHg (83-108); POC Comment POST; Potassium - POC 3.5 mmol/L (3.5-5.1); Sodium - POC 143 mmol/L (136-145); Specimen Type - POC Arterial; pH - POC 7.40 (7.35-7.45)
--- NOTE | 2025-04-20 14:31 | CON.INTV ---
Consultation
Consultation Request
Date/Time Consultation Requested: 04/20/2025
Date/Time Consultation Performed: 04/20/2025
Medical History
-
Chief Complaint: Syncope
History of Present Illness:
Patient is a 64-year-old gentleman with history of diabetes hyperlipidemia, prior history of smoking, currently vaping who had a syncopal episode about a week ago prompting a visit to [facility] emergency room. Patient was subsequently
discharged and had additional episodes afterwards. EMS was called and patient was taken to [facility] emergency room. Patient there was noted to be in ventricular tachycardia during an episode of syncope. He subsequently had a left
heart cath which yielded triple-vessel coronary artery disease. He was transferred to [facility] for further evaluation and consideration for coronary artery bypass graft.
Past medical history significant coronary artery disease, ventricular tachycardia, diabetes, hyperlipidemia, gastroesophageal reflux disease, history of smoking close to [id number] smoking history, quit at age 57. Current vaping
Family history. No reported history of lung cancer.
Allergies / Home Medications
Allergies
Allergy/AdvReac Type Severity Reaction Status Date / Time
No Known Allergies Allergy Unverified 09/11/12 14:10
Home Medications
�Medication �Instructions �Recorded �Confirmed �Last Taken �Type
dapagliflozin propanediol 5 mg 5 mg PO DAILY 04/18/25 04/18/25 04/11/25 18:00 History
tablet (Farxiga)
metformin 500 mg tablet 1,500 mg PO DAILY 04/18/25 04/18/25 04/11/25 18:00 History
naproxen sodium 220 mg capsule 220 mg PO Q12H PRN Neck pain 04/18/25 04/18/25 04/11/25 18:00 History
(Aleve)
rosuvastatin 5 mg tablet 5 mg PO DAILY 04/18/25 04/18/25 04/11/25 18:00 History
Review of Systems
-
Unable to Obtain full review of systems at this time due to: Patient Intubation
Hematologic/Lymphatic: Other
Vitals / Labs / Diagnostic Testing
Vital Signs
Temp Pulse Resp BP Pulse Ox
97.9 F 65 18 100/65 98
04/20/25 04:46 04/20/25 06:25 04/20/25 04:46 04/20/25 06:25 04/20/25 04:46
Diagnostic Testing:
Physical Exam
-
HEENT: Normocephalic
Cardiovascular: S1/S2
Respiratory: Clear
GI: Soft and Non Distended
Neurology: Other (Sedated)
Skin: Warm
General: Comfortable
Assessment
-
Patient is a 64-year-old gentleman with newly detected multivessel coronary artery disease, s/p coronary artery bypass graft POD # 0
Titrate off pressors per protocol, currently Levophed infusing at 2. MAP of 80.
ECHO reviewed with normal function
Management of chest tubes per primary service, no air leak noted
Intubated/sedated, initiate SAT when able, Precedex infusing
Pain control
RASS goal of 0 to -1
Intubated for procedure, SBT trial when patient able to spontaneously breath
Current vent settings: SIMV, 500/14/40%/5, PS 5
AB.36/43/181
CXR suggestive of mild central congestion as well as left lower lobe subsegmental atelectasis.
Extubate per protocol
Maintain supplement oxygen as needed
PFT suggestive of moderate COPD. Emphysema noted on imaging. Add DuoNebs on an as-needed basis.
Aspiration precautions
Encouraged incentive spirometry, OOB/ambulation/early mobility
Advance diet as tolerated following extubation
GI prophylaxis: Protonix
Monitor critical I/O's
Fonseca/chest tube output
Hb/platelets postoperatively, mild drift
Trend CBC for now
Can transfuse if indicated for Hb <7, plt <50 in surgical patients
DVT prophylaxis including SCDs
Insulin protocol initiated and ongoing
Transition to SQ/off as indicated per team
Other medical diagnoses:
- Lung nodule. 11 mm RML nodule. With concomitant emphysema, needs further work up possibly PET-CT/tissue diagnosis etc. Will pursue further as out patient with [facility] clinic. Follow up information added to the discharge section.
- Emphysema on imaging. COPD, Moderate severity. Needs additional workup including pulmonary function testing, 6-minute walk test as outpatient.
- History of smoking
- HLD
- DM
- GERD
- Ventricular tachycardia
Critical Care time [61] mins -- The patient is admitted for acute critical illness for the treatment of vital organ failure and/or prevention of further life-threatening conditions. Total care includes time spent in review of history, physical exam,
medications, hemodynamic/ventilator parameters, laboratory data, imaging and discussion with house staff, pharmacy, respiratory therapy, car worker, and nursing
Data:
CXR 04/2025: 1. Mild central pulmonary vascular congestion.
2. Haziness of the left hemidiaphragm, suggestive of left lower lobe subsegmental atelectasis.
PFT 04/2025: FEV1, 73% of predicted, FEV1/FVC of 60. Moderate obstructive airway disease with positive bronchodilator response.
CT Chest 04/2025: No aortic aneurysm. No calcified plaque of the ascending aorta. Calcified coronary artery plaque formation. Small to moderate hiatal hernia. No apparent hilar or mediastinal mass or enlarged adenopathy.
Mild emphysematous lung pattern.
Right middle lobe 11 mm pulmonary nodule. Occasional scattered nonspecific micronodules. Recommend follow-up PET/CT
ECHO 04/2025: 1. Ejection fraction is 60-65% by Bee's method of discs.
2. Normal left ventricular size and function.
3. Mild concentric left ventricular hypertrophy.
4. Right ventricular size and systolic function are within normal limits.
5. Trace mitral valve regurgitation.
6. Trace tricuspid regurgitation. Estimated pulmonary artery pressure of 28 mmHg assuming a right atrial pressure of 3 mmHg.
7. Aortic calcification.
8. There are no prior studies available for comparison.
[2025-04-20 15:00] LABS: Glucose - Point of Care 113 mg/dl (70-99)
[2025-04-20 15:07] LABS: B.E. 3.2 mmol/L; HCO3 28.5 mmol/L (21-28); Hematocrit 35.7 % (39.0-52.0); Hemoglobin 12.3 g/dL (13.0-18.0); O2 Saturation % 99.3 % (94-98); PCO2 45 mmHg (35-48); PO2 136 mmHg (83-108); Platelet Count 210 10^3/uL (130-400); Potassium 3.9 mMOL/L (3.5-5.1); Sodium 137 mMOL/L (136-145)
[2025-04-20 15:16] LABS: INR 1.48; PT 17.7 Sec (11.4-14.6)
[2025-04-20] MEDS: VERSED 0.5 MG IV (15:16)
--- NOTE | 2025-04-20 15:16 | W.PN.CARDCBS ---
Addendum entered and electronically signed by Marcell Jacob MD 04/20/25 16:19:
I saw and examined the patient.
The Connection Worker's note was reviewed and I agree with the note.
Comment: Briefly, 64-year-old man who presented to [facility] with syncope and was found to have ventricular tachycardia. Coronary angiography identified multivessel CAD and he underwent surgical revascularization (CABG x 4) earlier today.
At the time my evaluation he was resting comfortably in the CVICU where he remains intubated and sedated and requiring Levophed for pressor support
Warm and well-perfused on exam
Filling pressures are reasonable based on invasive hemodynamics
Maintaining sinus rhythm on review of telemetry
Agree with current cardiac meds� aspirin/Plavix, high intensity statin, beta-wali and amiodarone
Discussed with nursing at bedside
Original Note:
Today's Communication / Plan
-
continue post op care
in SR
Impression / Plan
-
.
PCP: Wero Licea
Weed Sprayer: Mulugeta Velasco ([facility])
Impression:
Transfer from [facility] 04/17/2025 for CABG
Recurrent syncope secondary to ventricular tachycardia
Multivessel coronary artery disease
s/p CABG x4 TRAYLOR-LAD, SVG-OM1, OM2 seq, SVG-PDA, AGGIE clip 04/20/25
Type 2 diabetes
Hyperlipidemia
GERD
History of smoking/tobacco abuse
Pulmonary nodules
Cervical radiculopathy
Cardiac catheterization from 04/17/2025 at [facility]: Multivessel coronary artery disease 70% proximal to mid LAD with IFR of 0.80. Left circumflex: 80% proximal stenosis at bifurcation of OM1. RCA: Proximal 100% CIVIL MANAGER.
Echo DH Apr 18 2025: Ejection fraction is 60-65%, mild LVH, no significant valve dz.
Plan:
-Patient presented with episode of VT and syncope. cath revealed MV CAD and was referred for CABG
-s/p CABG x4 TRAYLOR-LAD, SVG-OM1, OM2 seq, SVG-PDA, AGGIE clip 04/20/25
-intubated, sedated
-on levo@6, wean as able
-SR on tele, SR with NSSTS by post op EKG
-hgb 12.3. plan for asa, plavix
-LDL 78. continue statin
-needs improved diabetic control, lapse in care due to loss of insurance in past
-continue post op care
-d/w nursing
[facility] :
Patient is a 64-year-old male with past medical history significant for type 2 diabetes, hyperlipidemia, GERD and history of smoking who was transferred from [facility] on 04/17/2025 after being diagnosed with multivessel
coronary artery disease. Over last week patient had multiple episodes of lightheaded/dizziness and syncope and was found to have ventricular tachycardia. Patient had syncopal episode on 04/12/2025 while at work prompting him to seek treatment at
[facility] emergency department. He was treated and discharged home the next day. He had a second episode of syncope while sitting on the couch at home on 04/13/2025 prompting his significant other to call 911 and was taken to . "[facility] 04/13/2025. Patient had several near syncopal episodes where he felt lightheaded and dizzy and was found to have ventricular tachycardia on telemetry. Patient reports he had echocardiogram, carotid ultrasound, CT of
chest. Unfortunately records are not available at time of this evaluation. They have been requested. He underwent cardiac catheterization which demonstrated severe multivessel CAD. Patient requested transfer to [facility] for CT surgery consult.
Patient admits prior to his recent syncopal events he was fairly active going for walks with his dog most days of the week. He denies having chest pain shortness of breath or changes in functional capacity. He does note right arm/shoulder pain
which he reports is from a pinched nerve in his neck. He has history of tobacco abuse/smoking and currently vapes.
Progress Note - Weed Sprayer
Subjective
Date of Service: April 20, 2025
intubated, sedated
Objective
Labs:
Labs
Hgb 12.3 g/dL (13.0-18.0) L 04/20/25 14:53
Hct 35.7 % (39.0-52.0) L 04/20/25 14:53
Plt Count 210 10^3/uL (130-400) 04/20/25 14:53
PT 15.0 Sec (11.4-14.6) H 04/17/25 20:46
INR 1.17 04/17/25 20:46
APTT 34.7 Sec (23.4-35.0) 04/17/25 20:46
Sodium 137 mmol/L (135-145) 04/20/25 05:00
Potassium 4.2 mmol/L (3.5-5.1) 04/20/25 05:00
BUN 14 mg/dl (9-20) 04/20/25 05:00
Creatinine 0.9 mg/dL (0.7-1.3) 04/20/25 05:00
Glucose 131 mg/dl (70-99) H 04/20/25 05:00
Vital Signs and I&O:
Vital Signs
Temp Pulse Resp BP Pulse Ox
96.3 F L 62 14 100/65 98
04/20/25 15:00 04/20/25 15:00 04/20/25 15:00 04/20/25 06:25 04/20/25 15:00
Vital Signs
Temp Pulse Resp BP Pulse Ox
96.3 F L 62 14 100/65 98
04/20/25 15:00 04/20/25 15:00 04/20/25 15:00 04/20/25 06:25 04/20/25 15:00
Intake & Output
04/18/25 04/19/25 04/20/25 04/21/25
07:59 07:59 07:59 07:59
Intake Total 480 / 480 480 / 480
Output Total 125 / 125
Balance 480 / 480 480 / 480 -125 / -125
Physical Exam
Physical Exam
GEN: No distress, intubated, sedated. on daija hugger
HEENT: supple, mmm
LUNGS: CTA B/L, no wheezes/rales
CV: Reg, S1/S2, no murmur
EXT: No cyanosis, clubbing, edema
NEURO: sedated
SKIN: Warm, pink, dry. No rash. Sternotomy incision c/d/i. CTs in place
[2025-04-20 15:17] LABS: APTT 31.8 Sec (23.4-35.0)
[2025-04-20] MEDS: DILAUDID 0.5 MG IV ×2 (15:20→22:54)
--- NOTE | 2025-04-20 15:20 | PTCARENOTE ---
received pt from CVOR @ 1500 into room 2260. pt sedated and intubated. precedex gtt infusing @ 0.5mcg. NSR on monitor, HR 60s. epicardial V wires present and pacer box set to back up VVI 50, mA 10. +peripheral pulses. L radial art line in place, SBP
100s. Levo gtt infusing @ 4mcg. RIJ cordis + slic catheter in place w KVOs infusing. CVP ~11. B/L breath sounds present. #[address] @ 24 cm right lip. vent set to SIMV 14/550/5/5/40%. POX 98%. CT x3 in place, set to -20 cm wall suction,
drainage WNL; no air leak, tidaling, or crepitus noted. hypoactive BS present. Insulin gtt infusing per glycemic protocol. jimenez catheter in place, draining CYU, UO adequate. all surgical sites stable, CDI. PIV intact and patent. post-op labs drawn
and sent. EKG done. pt woke up very anxious, trashing in bed. 0.5mg versed given. pt continued to trash in bed, nodding head 'yes' when asked if having pain. 0.5mg dilaudid given. CXR done. see worklist for full assessment, VS, and interventions.
[2025-04-20] MEDS: KCL 50 IV (15:24)
[2025-04-20] MEDS: CALCIUM GLUCONATE 100 IV ×2 (15:24→21:14)
[2025-04-20 15:31] LABS: Blood Urea Nitrogen 11 mg/dl (9-20); Estimated Creatinine Clearance 122 ml/min; Glucose 112 mg/dl (70-99); Magnesium 3.3 mg/dl (1.6-2.3)
[2025-04-20] MEDS: ANCEF 10 IV ×2 (15:33)
[2025-04-20] MEDS: NSS 500 IV (15:34)
--- NOTE | 2025-04-20 15:50 | PTCARENOTE ---
precedex gtt off @ 1530. pt awake and following commands. RT at bedside, pt placed on SBT, POX 98% RR 17.
[2025-04-20] MEDS: LR 250 ML IV ×4 (16:01→20:30)
--- NOTE | 2025-04-20 16:10 | W.PN.CT.SURG ---
CT Surgery Operative Note
-
CARDIAC SURGERY OPERATIVE REPORT
Preoperative Diagnosis: Multivessel Coronary Artery Disease with ventricular tachycardia recurrent syncope
Postoperative Diagnosis: Same
Procedure(s) Performed:
1. Standard Sternotomy with Aortic and Right Atrial Cannulation
2. Internal Mammary Artery Harvesting, Left
3. Coronary artery bypass grafting x 4 (In situ TRAYLOR to LAD, Ao to RSVG to OM1 and OM2 in sequence, Ao to RSVG to PDA)
4. Unroofing of left anterior descending artery from intramyocardial bridge
5. Endoscopic vein harvesting of right saphenous vein
6. Transesophageal echocardiography
7. Placement of Temporary Ventricular Pacing Wires
8. Left atrial appendage ligation using AtriClip device
Date of Surgery: 04/21/2025
Comorbidities:
1. Type 2 diabetes mellitus
2. Hyperlipidemia
3. Former smoker, current vaping
4. V tach with syncope
Attending Surgeon: Lori Palacios MD, MPH
Assistants: Suzette Garcia PA-C ; Jonathon Robb PA-C (present and necessary to assistant office manager, endoscopic vein harvest, retraction, suction, exposure, suture management, and wound closure under my direction)
Anesthesiology: Wero Caldwell MD and Jerrica Trammell CRNA
Scrub and Circulating RNs: Mavis Zarate RN, Ole Bowser RN
Special Delivery Clerk: Marlene Shay CCP
Anesthesia: GETA
EBL: per perfusion records
Products: None
CPB Time: 179 minutes
Aortic Cross Clamp Time: 159 minutes
Indication(s) for Procedures: Mr. Louie is a 64-year-old male with poorly controlled DM and current vaping who presented with V. tach and syncope leading to coronary workup showing multivessel CAD. Given his high [id number] score he also will
have left atrial appendage ligation in addition to likely four-vessel CABG.
Conduit(s) Quality:
TRAYLOR -excellent quality flow with good caliber
RSVG -the vein is of good quality without significant sclerosis or varicosities, size does taper some towards the distal end
I did look at the left radial artery for potential second arterial graft based off of preoperative testing indicating it would be a decent conduit. Unfortunately on inspection the artery was small and therefore decision made to not use.
Target(s) Quality:
PDA -the PDA appeared moderate in size, was opened and area free of disease size. Vessel was probed with a 1 mm probe which did indicate that distally vessel tapered off in size. Flow on bypass 30cc/min at 80 mmHg with flow probe 19 cc/min PI 3.5.
OM -OM 1 and 2 were both inspected and were large vessels free of disease and the distal area for good target. Each vessel was probed and was easily able to pass a 1 mm probe. Following bypass 30 cc/min at 80 mmHg, with flow probe 40 cc/min PI 2.1.
LAD -course of the LAD was initially difficult to find due to significant epicardial adipose tissue and then intramyocardial course. Once the vessel was identified and unroofed, the target was free of disease with healthy vessel and good caliber
size easily passing a 1 mm probe. Flow probe shows 16 cc/min PI 3
Findings: BRAEDEN performed preoperatively showing EF 60 to 65% with normal size and function of LV and RV. Postprocedure the EF was at baseline 60 to 65% with no new regional wall motion abnormalities or valvular dysfunction. After coming off bypass
patient was quickly back in sinus rhythm with his algaaciq conduction. The TRAYLOR was harvested in a skeletonized fashion. The LAD was difficult to identify on the epicardial surface given significant epicardial adipose tissue. We were able to
identify the terminal LAD at the apex and noted that it was intramyocardial through the majority of its course. We were able to identify an unroofed a good target in the distal LAD for bypass. Following bypass grafting, test dose cardioplegia was
given down each distal and confirmed patency and hemostasis. Each distal was probed both proximally and distally to confirm disease and patency, respectively. He was able to come off bypass without significant inotropic support.
Description of Procedure: The patient was taken to the operating room. Their identity and procedure to be performed were verified and they were positioned supine on the operating table. Induction via general anesthesia with endotracheal intubation
was performed and central venous access and arterial monitoring were inserted. A preoperative transesophageal echocardiogram was performed to assess cardiac function and valvular function. The patient was then prepped and draped from chin to feet in
a sterile fashion. A preoperative time-out was performed with all members of the team present. A midline chest incision was performed along with median sternotomy. Simultaneous endoscopic access of the right lower extremity for saphenous vein
harvest was obtained along with administration of an initial 5,000 units of IV heparin. A RulTract sternal retractor was positioned to exposure the left internal mammary bed. The mammary was harvested and found to have good flow. A bulldog clamp was
applied to the distal end of the mammary after dividing it. It was wrapped in a papaverine soaked RayTec and replaced back into the left hemithorax. The RulTract was exchanged for a median sternal retractor. The innominate vein was isolated. Full
heparinization was given (a total of 50,000 units). We created a pericardial well. The aortic cannulation site was chosen where it was soft, pliable, and free of calcium. Cannulation was performed with an arterial cannula in the ascending aorta and
a triple-stage venous cannula through the right atrial appendage. The arterial cannula line had an appropriate bounce and correlating pressures with test dosing. Next, a root vent/antegrade cannula was inserted into the ascending aorta. The ACT was
confirmed to be over 400 and retrograde autologous priming was performed before commencing cardiopulmonary bypass. The pulmonary artery was away from the aorta to facilitate a clamp site. The aortic cross-clamp was placed after decreasing
the flow on the bypass and mean arterial pressure. A total of 1.2L initial dose of antegrade Del-Nido cardioplegia solution was given and planned for re-dosing every 75 minutes as necessary. There was rapid electro-mechanical arrest of the heart at
400 cc of cardioplegia. The left ventricle was observed for distention on echocardiogram and manual palpation. Cold slush was placed into a sponge and topically on the RV while we systemically cooled to 34 degrees centigrade.
I positioned the heart to expose the left atrial appendage and using visual inspection sized to 35mm AtriClip device, this was placed at the base of the left atrial appendage. Next I positioned the heart to expose the lateral wall to visualize the
obtuse marginal branches. There were 2 large branches consistent with the OM1 and 2 seen on cath, the orientation was excellent for a sequential grafting so we proceeded with this. A [place] blade was used to expose the second obtuse marginal
coronary and perform the arteriotomy. Coronary Gramajo scissors were used to enlarge the incision. The saphenous vein was trimmed and beveled to an appropriate size. The distal anastomosis was performed using 7-0 prolene in an end-to-side fashion.
Antegrade cardioplegia was administered into the graft. Appropriate hemostasis and flow were confirmed. The graft was measured for length to the more proximal OM and positioned for sequential anastomosis. A suitable site on the first obtuse
marginal was chosen. We dissected and prepared the distal target in a similar fashion. A bwas-uj-tfip anastomosis was created with a 7-0 prolene. Antegrade cardioplegia was administered into the graft. Appropriate hemostasis and flow were confirmed.
The graft was measured for length to the aorta and cut. The heart was then positioned to expose the posterior wall for PDA, there was only one moderate sized vessel identified which was consistent with a PDA and was chosen for bypass site. We
dissected and prepared the distal target in a similar fashion. An end-to-side anastomosis was created with a 7-0 prolene. Antegrade cardioplegia was administered into the graft. Appropriate hemostasis and flow were confirmed. The graft was measured
for length to the aorta and cut. We lastly moved to identify the LAD along the anterior wall of the heart in the interventricular groove. The heart had significant epicardial adipose tissue all along the anterior wall, we explored in the area of the
interventricular groove in the expected course and came across the mammary vein but did not see the artery in this area. The diagonal was easily visible and traced proximally but again with significant epicardial fat and we were not able to find the
proximal LAD. At this point I called in my partner Dr. Hema Garcia for assistance as we could still not find the vessel. We again looked in multiple areas along the interventricular groove and were not able to find the vessel or see any
indication of an intramyocardial course. We moved to the apex and were able to find the small distal most branch and traced it back to where it quickly became intramyocardial. We carried this dissection out to an area where the mammary graft would
reach without tension and identified a good distal target for anastomosis. We retrieved the TRAYLOR from the chest and created a pericardial opening while being cognizant of the phrenic nerve to facilitate the course of the mammary. The distal end of
the mammary was prepped and beveled to size. We verified orientation and length of the REID and found brisk flow. An end-to-side anastomosis was created with a 7-0 prolene. We temporarily released the bulldog clamp on the mammary to inspect flow.
Perfusion to the LAD territory was visualized and hemostasis was confirmed. The bull clamp was replaced on the mammary. The heart was filled and the root was distended with antegrade cardioplegia to make final assessment of graft length and
orientation. We created 2 aortotomies using a #11 blade then a 4.0mm aortic punch. The proximal anastomoses were created in an end-to-side fashion using 6-0 prolene. At the the same time, we re-warmed to 36.5 degrees centigrade. The bulldog clamp
was removed from the mammary. Temporary bipolar ventricular pacing wires were placed on the base of the right ventricle. The patient was placed in a Trendelenburg position and flows on bypass were lowered. The aortic cross clamp was removed and
flows were slowly brought back up. A 30-gauge needle was used to de-air the vein grafts. All bypass grafts were inspected and were free from kinking or twisting. The distal and proximal anastomoses appeared hemostatic. Once transesophageal
echocardiography appeared satisfactory for de-airing, the flows were temporarily lowered for root vent removal. After verifying acceptable parameters, we initiated weaning from cardiopulmonary bypass. Once we were off cardiopulmonary bypass, the
venous cannula was clamped and removed. A test dose of protamine was administered and the patient was monitored for any adverse reaction before resuming protamine. Once half of the protamine dose was delivered, pump suckers were turned off and the
systolic blood pressure was lowered for aortic decannulation. The aortic cannula was removed and pursestrings were tied down. All cannulation sites were oversewn with a 4-0 prolene. The mammary bed was inspected and hemostasis was confirmed. Once
the mediastinum was hemostatic, 19Fr Patrick drain was placed in the left pleural cavity and two 24Fr Patrick drains were placed within the pericardium. The sternum was approximated with 4 #7 single and 3 #8 double stainless steel wires. Fascia was
approximated with #1 vicryl suture. The subcutaneous, dermis and epidermis were closed in layers in a running fashion. The skin wound was cleansed and dressed.
All instrument, sponge, and needle counts were confirmed to be correct x 2 at the end of the operation. The patient was transferred to the cardiac intensive care unit in critical but stable condition.
I, Dr. Lori Palacios, was present, scrubbed for, and performed all critical elements of this procedure.
Lori Palacios MD, MPH
Cardiothoracic Surgeon
[facility]
This operative dictation was created using the [employer] dictation system. Please excuse any grammatical, typographical, or 'sound alike' errors
[2025-04-20 16:20] LABS: Glucose - Point of Care 136 mg/dl (70-99)
[2025-04-20] MEDS: PACERONE PO ×2 (16:29→22:16)
[2025-04-20] MEDS: NEURONTIN PO ×2 (16:29→22:16)
[2025-04-20 16:31] LABS: B.E. -1.3 mmol/L; HCO3 24.3 mmol/L (21-28); O2 Saturation % 99.4 % (94-98); PCO2 43 mmHg (35-48); PO2 181 mmHg (83-108); Potassium 4.7 mMOL/L (3.5-5.1)
--- NOTE | 2025-04-20 16:45 | PTCARENOTE ---
pt extubated per orders by RT to 6LNC. no wheezing or stridor noted. POX 100%. IS 1000. VSS.
--- NOTE | 2025-04-20 16:48 | RESPNOTE ---
patient extubated at 1645 without incident. 99% on 6L.
[2025-04-20] MEDS: OFIRMEV 100 IV (16:55)
[2025-04-20] MEDS: ZOFRAN 4 MG IV (16:56)
[2025-04-20 17:14] LABS: Glucose - Point of Care 132 mg/dl (70-99)
[2025-04-20 17:19] LABS: Hematocrit 35.4 % (39.0-52.0); Hemoglobin 11.9 g/dL (13.0-18.0); Platelet Count 216 10^3/uL (130-400)
[2025-04-20] MEDS: CRESTOR PO (18:00)
[2025-04-20 18:06] LABS: Glucose - Point of Care 123 mg/dl (70-99)
[2025-04-20 19:27] LABS: Glucose - Point of Care 151 mg/dl (70-99)
[2025-04-20] MEDS: SENOKOT PO (19:54)
[2025-04-20] MEDS: LOW STRENGTH ASPIRIN 81 MG PO (19:54)
[2025-04-20 20:09] LABS: Glucose - Point of Care 153 mg/dl (70-99)
[2025-04-20 20:37] LABS: B.E. -0.7 mmol/L; HCO3 24.2 mmol/L (21-28); O2 Saturation % 99.6 % (94-98); PCO2 40 mmHg (35-48); PO2 116 mmHg (83-108); Potassium 5.0 mMOL/L (3.5-5.1)
[2025-04-20 20:40] LABS: Hematocrit 35.7 % (39.0-52.0); Hemoglobin 12.2 g/dL (13.0-18.0)
[2025-04-20] MEDS: DILAUDID 0.25 MG IV (20:40)
[2025-04-20 20:50] LABS: APTT 29.5 Sec (23.4-35.0); INR 1.34; PT 16.4 Sec (11.4-14.6)
[2025-04-20 20:55] LABS: Magnesium 2.4 mg/dl (1.6-2.3)
--- NOTE | 2025-04-20 21:00 | PTCARENOTE ---
Patient received resting in bed. Family at bedside. Patient A+A+Ox3. No neurological deficits noted. No c/o headache, dizziness or lightheadedness. O2 at 4L via NC. SpO2 100%. Lungs diminished throughout lung sorto. Three chest tubes -
Mediastinal x2 and Left Pleural - Intact and patent - Red drainage - Outputs as documented - No air leak - Dressing intact. Sinus Rhythm. Heart rate 60-70's. Blood pressure via right arterial line 110/58 (75). No c/o chest pain, pressure or
discomfort. CVP 8. VVI 50/10/1.0 Abdomen soft, nontender. Hypoactive bowel sounds. No BM. No c/o nausea. No vomiting. Fonseca catheter - Temperature sensing - Light carmelita, yellow urine - Outputs as documented. Trace generalized edema.
Positive, palpable pulses. No c/o back or flank pain. Right I.[place]. Cord[place] with [place] catheter. Levophed gtt at 6 mcq/min (22.5 ml/hr). IVF LR 250 ml bolus administered per PA order. Lab collected and sent. Assessment as documented.
[2025-04-20 22:09] LABS: Glucose - Point of Care 114 mg/dl (70-99)
[2025-04-20] MEDS: TYLENOL PO (22:16)
[2025-04-20] MEDS: ALBUMIN 5% 250 IV (22:20)
[2025-04-20] MEDS: ANCEF 5 IV (22:21)
[2025-04-20] MEDS: LEVOPHED 250 IV (22:44)
--- NOTE | 2025-04-20 23:00 | PTCARENOTE ---
Ionized Calcium 1.13 - Calcium Gluconate 2gram/100ml IV over an hour per order/protocol/per PA. 5% Albumin 12.5 grams/250 ml IV at 200 ml/hr infusing per PA order. IV Dilaudid for pain management. Assessment as documented.
[2025-04-21] VITALS (31 sets, daily range): BP systolic 84–117; BP diastolic 44–75; PULSE 94; O2SAT 95–98; BMI 25.9
[2025-04-21 00:13] LABS: Glucose - Point of Care 134 mg/dl (70-99)
[2025-04-21] MEDS: DILAUDID 0.25 MG IV (00:45)
[2025-04-21 00:58] LABS: Glucose - Point of Care 123 mg/dl (70-99)
--- NOTE | 2025-04-21 02:00 | PTCARENOTE ---
Patient sleeping. Levophed gtt at 4 mcq/min (15 ml/hr). Insulin gtt. O2 at 2L via NC. Assessment/Interventions as documented.
[2025-04-21 02:10] LABS: Glucose - Point of Care 80 mg/dl (70-99)
[2025-04-21] MEDS: ROXICODONE 5 MG PO ×3 (02:52→19:51)
[2025-04-21 03:00] LABS: Glucose - Point of Care 83 mg/dl (70-99)
[2025-04-21 03:50] LABS: Hematocrit 32.7 % (39.0-52.0); Hemoglobin 11.2 g/dL (13.0-18.0); Mean Corp Hgb Conc. 34.3 g/dL (33.0-37.0); Mean Corpuscular Volume 88.4 fL (80.0-94.0); Platelet Count 209 10^3/uL (130-400); Red Cell Dist. Width 13.1 % (11.5-14.5)
[2025-04-21 04:11] LABS: Glucose - Point of Care 84 mg/dl (70-99)
--- NOTE | 2025-04-21 04:15 | PTCARENOTE ---
Patient A+A+Ox3. No neurological deficits noted. EKG completed. AM labs collected and sent. Levophed at 2 mcq/min (7.5 ml/hr). Patient given CHG bath and linens changed. Chest tube dressing changed. Roxicodone 5mg PO for pain management.
Assessment/Interventions as documented.
[2025-04-21 04:18] LABS: Blood Urea Nitrogen 13 mg/dl (9-20); Calcium 8.1 mg/dl (8.4-10.2); Carbon Dioxide 22 mmol/L (22-30); Chloride 105 mmol/L (98-107); Estimated Creatinine Clearance 105 ml/min; Glucose 86 mg/dl (70-99); Magnesium 2.1 mg/dl (1.6-2.3); Potassium 4.6 mmol/L (3.5-5.1); Sodium 133 mmol/L (135-145); eGFR > 60.00
[2025-04-21] MEDS: ANCEF 5 IV ×2 (05:01→14:25)
--- NOTE | 2025-04-21 05:22 | W.PN.CT ---
Today's Communication / Plan
-
-pod #1
-no significant issues overnight
-got 1000 of LR and 250 Albumin
-mvO2 64.3. Drips: insulin, Levo was 6 and now off
-CT outputs: 2 meds 240/440, L pleur 140/210 in 12/24 hrs
-wean off Levo, then deline
-d/c Fonseca
-continue insulin
-current meds (ASA, Plavix, Crestor, Lopressor, Amio, Gabapentin, Protonix)
-appreciate everyone's input
-encourage IS, OOB
Assessment / Plan
-
- VT with recurrent syncope/ mv-CAD - s/p s/p CABG x4 (TRAYLOR-LAD, SVG-OM1- seq OM2, SVG-PDA); LAAE clip # [address] Palacios on 04/20/25, pod #1
- Transferred from [facility] 04/17/2025 for CABG
- Recurrent syncope secondary to ventricular tachycardia
- Multivessel coronary artery disease
- Type 2 diabetes, HgA1C 11.4
- Hyperlipidemia
- GERD
- History of smoking/tobacco abuse, vapes
- Mild emphysema on chest CT
- Pulmonary nodules RML 11 mm
- Cervical radiculopathy
- Lapse in care due to loss of insurance in past
Cardiac catheterization from 04/17/[address] [facility]: Multivessel coronary artery disease 70% proximal to mid LAD with IFR of 0.80. Left circumflex: 80% proximal stenosis at bifurcation of OM1. RCA: Proximal 100% TIMBER TREATING TANK OPERATOR.
Echo 04/18/25: Ejection fraction is 60-65%, mild LVH, no significant valve dz.
- Acute postop blood loss anemia
- Acute postop atelectasis
- Acute postop hypovolemia with subsequent hypervolemia
- Acute postop suspected pericarditis/ + rub
- Acute postop hyponatremia
Discussed patient care with: Nursing and Care Team
Subjective
-
Date of Service: April 20, 2025
Objective Data
-
Lab Results
04/20/25 20:23
04/20/25 14:53
PT 16.4 Sec (11.4-14.6) H 04/20/25 20:23
INR 1.34 04/20/25 20:23
APTT 29.5 Sec (23.4-35.0) 04/20/25 20:23
Vital Signs
Vital Signs
Temp Pulse Resp BP Pulse Ox
98.8 F 69 16 93/53 99
04/20/25 23:00 04/20/25 23:00 04/20/25 23:00 04/20/25 23:00 04/20/25 23:00
CT Intake/Output/Weight
04/20/25 04/20/25 04/21/25
06:59 18:59 06:59
Intake Total 763.7 / 1568.7 805.0 / 1568.7
Output Total 535 / 955 420 / 955
Balance 228.7 / 613.7 385.0 / 613.7
SaO2: 99
Physical Exam
-
General: Awake and AOx3
Cardiovascular: Regular rate & rhythm, No Murmurs and Rub
Respiratory: Decreased Breath Sounds
Sternum: Stable
Incision: Clean, Dry and Intact
Extremities: No Edema (1+ DPs b/l)
Abdomen: soft, nontender, nondistended, + decreased bowel sounds
Data Reviewed
-
Lab Results: Results Reviewed
Medications: Active Meds Reviewed
Chest X-Ray: Report Reviewed and Image Reviewed
ECG: Report Reviewed and Image Reviewed
[2025-04-21] MEDS: TYLENOL PO (05:52)
[2025-04-21] MEDS: ZOFRAN 4 MG IV (05:59)
[2025-04-21 06:14] LABS: Glucose - Point of Care 97 mg/dl (70-99)
--- NOTE | 2025-04-21 07:52 | PN.DE.MGMTRT ---
Insulin Management
- -
04/21/2025: Diabetes Management Follow up
Patient admitted from 04/17 after multiple episodes of syncope. He had recently been at [facility] 04/12 to 04/13 for syncope. Discharged then had another episode of syncope and went to where he was found to have multivessel CAD. PMH HLD,
GERD, diabetes, vtach, vapes daily. Prior to admission was not taking medication for diabetes. A1C 11.3%, Cr 0.9, eGFR > 60.
Patient is awake, alert, oriented, sitting up in chair, offers no complaints, able to discuss diabetes care plan. POD #1 s/p CABG
Currently on glycemic protocol, glucose range 80 to 97, receiving 0.2 to 0.8 units of insulin/hr, to continue until tomorrow.
Will cont current treatment plan. He was taking Lantus 15 units AM with NovoLog 4 units AC and moderate corrective insulin
Please consider resuming pt's regimen that he was taking prior to OR, up on transitioning off insulin infusion
Discussed with nurse. Will cont to follow.
Diabetes History
- -
Type of Diabetes: 2 requiring insulin
Pre-Admission Diabetes Regimen
04/20/25 04/21/25
14:53 03:14
Creatinine 0.6 L 0.7
Lab Results
Hemoglobin A1c 11.4 % (4.0-5.9) H 04/17/25 20:46
Insulin Pump Settings
IP Diabetes Regimen
04/20/25 04/20/25 04/20/25
06:24 14:53 14:56
Glucose 112 H
POC Glucose 142 H 113 H
04/20/25 04/20/25 04/20/25
16:19 17:13 18:05
Glucose
POC Glucose 136 H 132 H 123 H
04/20/25 04/20/25 04/20/25
19:24 20:08 22:08
Glucose
POC Glucose 151 H 153 H 114 H
04/21/25 04/21/25 04/21/25
00:12 00:57 02:09
Glucose
POC Glucose 134 H 123 H 80
04/21/25 04/21/25 04/21/25
02:58 03:14 04:10
Glucose 86
POC Glucose 83 84
04/21/25
06:12
Glucose
POC Glucose 97
Patient Education
--- NOTE | 2025-04-21 07:56 | W.PN.ANS.POP ---
Anesthesia Post Operative
- Anesthesia Post Op Note
Vital Signs Stable-See Nursing Note: Yes
Airway Patent: Yes
Adequate Pain Control: Yes
Change in Mental Status: No
Current Postoperative Nausea & Vomiting: No
Anesthesia Complications: No
General Anesthetic Recall: No
Unplanned Admission: No
Post Op Hydration Adequate: Yes
--- NOTE | 2025-04-21 08:07 | W.PN.INTV ---
Today's Communication / Plan
Recommendations
- Wean insulin infusion per protocol
- Incentive spirometry
- Wean oxygen as tolerated
- Outpatient follow-up with [facility], information added to the d/c section
- Inventory Control Coordinator service will sign off once patient is transferred out of CVICU
Assessment
-
Patient is a 64-year-old gentleman with newly detected multivessel coronary artery disease, s/p coronary artery bypass graft POD # 1
Titrated off pressors per protocol, MAP of 71.
ECHO reviewed with normal function
Management of chest tubes per primary service, no air leak noted
Extubated, currently saturating 96% on 2 L supplemental O2
CXR suggestive of left lower lobe atelectasis. Moderate opacity.
Extubate per protocol
Maintain supplement oxygen as needed
PFT suggestive of moderate COPD. Emphysema noted on imaging. Added DuoNebs on an as-needed basis.
Aspiration precautions
Encouraged incentive spirometry, OOB/ambulation/early mobility
Advance diet as tolerated following extubation
GI prophylaxis: Protonix
Monitor critical I/O's
Fonseca/chest tube output
Hb/platelets postoperatively, mild drift
Trend CBC for now
Can transfuse if indicated for Hb <7, plt <50 in surgical patients
DVT prophylaxis including SCDs
Insulin protocol initiated and ongoing
Transition to SQ/off as indicated per team
Other medical diagnoses:
- Lung nodule. 11 mm RML nodule. With concomitant emphysema, needs further work up possibly PET-CT/tissue diagnosis etc. Will pursue further as out patient with [facility]. Follow up information added to the discharge section. Patient updated
regarding the imaging finding, risk of malignancy and need for close follow-up as outpatient.
- Emphysema on imaging. COPD, Moderate severity. Needs additional workup including pulmonary function testing, 6-minute walk test as outpatient.
- History of smoking
- HLD
- DM
- GERD
- Ventricular tachycardia
Critical Care time [41] mins -- The patient is admitted for acute critical illness for the treatment of vital organ failure and/or prevention of further life-threatening conditions. Total care includes time spent in review of history, physical exam,
medications, hemodynamic/ventilator parameters, laboratory data, imaging and discussion with house staff, pharmacy, respiratory therapy, airplane pilot, and nursing
Data:
CXR 04/2025: 1. Mild central pulmonary vascular congestion.
2. Haziness of the left hemidiaphragm, suggestive of left lower lobe subsegmental atelectasis.
PFT 04/2025: FEV1, 73% of predicted, FEV1/FVC of 60. Moderate obstructive airway disease with positive bronchodilator response.
CT Chest 04/2025: No aortic aneurysm. No calcified plaque of the ascending aorta. Calcified coronary artery plaque formation. Small to moderate hiatal hernia. No apparent hilar or mediastinal mass or enlarged adenopathy.
Mild emphysematous lung pattern.
Right middle lobe 11 mm pulmonary nodule. Occasional scattered nonspecific micronodules. Recommend follow-up PET/CT
ECHO 04/2025: 1. Ejection fraction is 60-65% by Bee's method of discs.
2. Normal left ventricular size and function.
3. Mild concentric left ventricular hypertrophy.
4. Right ventricular size and systolic function are within normal limits.
5. Trace mitral valve regurgitation.
6. Trace tricuspid regurgitation. Estimated pulmonary artery pressure of 28 mmHg assuming a right atrial pressure of 3 mmHg.
7. Aortic calcification.
8. There are no prior studies available for comparison.
Subjective Dataa
Subjective Data
Date of Service:
Date of Service: April 21, 2025
Subjective:
Patient comfortably lying in bed in no acute distress.
Review of Systems
Genitourinary: Other (All 14 systems reviewed and negative except as stated above in the history of present illness.)
Objective Data
Data Reviewed
Vital Signs / I&O / Oxygen:
Vital Signs
Temp Pulse Resp BP Pulse Ox
99.4 F 87 21 93/52 94
04/21/25 06:00 04/21/25 07:00 04/21/25 07:00 04/21/25 07:00 04/21/25 07:00
Intake and Output
04/20/25 04/21/25 04/22/25
06:59 06:59 06:59
Intake Total 1798.4 / 1809.2 10.8 / 10.8
Output Total 1570 / 1650 80 / 80
Balance 228.4 / 159.2 -69.2 / -69.2
SaO2 [CPAP] 99
SaO2 [SIMV] 98
SaO2 94
Nasal Cannula flow liters per 2
minute
Physical Exam
General: Comfortable
HEENT: Normocephalic
Cardiovascular: S1-S2
Respiratory: Clear
GI: Soft and Non Distended
Neurology: Awake and Alert
Skin: Warm
Labs/Micro/Reports
Lab Data
04/21/25 03:14
04/21/25 03:14
Laboratory Results
04/20/25 04/20/25 04/20/25
14:53 16:19 20:23
PT 17.7 H 16.4 H
INR 1.48 1.34
APTT 31.8 29.5
pH 7.41 7.36 7.39
pCO2 45 43 40
pO2 136 H 181 H 116 H
HCO3 28.5 H 24.3 24.2
O2 Delivery Level
[2025-04-21 08:29] LABS: Glucose - Point of Care 83 mg/dl (70-99)
[2025-04-21] MEDS: DILAUDID 0.5 MG IV (08:47)
[2025-04-21] MEDS: LOW STRENGTH ASPIRIN 81 MG PO (09:09)
[2025-04-21] MEDS: LOPRESSOR 12.5 MG PO (09:09)
[2025-04-21] MEDS: NEURONTIN 100 MG PO ×3 (09:09→21:13)
[2025-04-21] MEDS: PROTONIX 40 MG PO (09:10)
[2025-04-21] MEDS: SENOKOT 8.6 MG PO ×2 (09:10→19:51)
[2025-04-21] MEDS: BACTROBAN 2% OINTMENT 1 APPLIC NASAL ×2 (09:10→19:52)
[2025-04-21] MEDS: PACERONE 200 MG PO ×3 (09:10→21:13)
[2025-04-21] MEDS: PLAVIX 75 MG PO (09:10)
[2025-04-21] MEDS: LIDOCAINE 4% PATCH 1 PATCH TOPICAL (09:10)
[2025-04-21] MEDS: MAGNESIUM OXIDE 400 MG PO ×2 (09:10→19:51)
--- NOTE | 2025-04-21 09:32 | PTCARENOTE ---
assumed care of pt from previous shift RN, sinus rhythm on tele w epicardial V wire for back up, + peripheral pulses, trace edema to feet and hands. Lungs diminished, pox 97% on 2L NC. Coughing and deep breathing encouraged. CTx 3 w minimal amount
of drainage. Surgical sites stable. Right IJ cordis and PIV x2 flush easily. Surekha & jimenez removed. Pt medicated for pain. Tolerated working w CR. Plan of care reviewed and questions encouraged.
[2025-04-21 10:35] LABS: Glucose - Point of Care 121 mg/dl (70-99)
[2025-04-21] MEDS: NOVOLOG FLEXPEN SC ×2 (11:13→14:26)
[2025-04-21 12:40] LABS: Glucose - Point of Care 117 mg/dl (70-99)
--- NOTE | 2025-04-21 13:00 | W.PN.CARDCBS ---
Addendum entered and electronically signed by Jamir Muñiz MD 04/21/25 13:50:
I saw and examined the patient.
The Contact Lens Assistant's note was reviewed and I agree with the note.
Comment:
GEN: No distress, awake, Ox3
HEENT: supple, anicteric, mmm
LUNGS: CTA, no wheezes/rales
CV: Reg, S1/S2, no rub
ABD: soft, BS+, NT/ND
EXT: No edema
NEURO: Gross non-focal
SKIN: sternotomy
PLan:
EKG consistent with pericarditis. Chest pain is overall tolerable. Can add colchicine if needed.
Remains in sinus rhythm. Continue amiodarone, metoprolol, aspirin and Plavix
Continue Crestor 20 mg daily. Hemoglobin 11., Creat 0.7
Original Note:
Today's Communication / Plan
-
Continue postop care
In sinus rhythm
Pericarditis by EKG
Impression / Plan
-
.
PCP: Wero Licea
Energy Administrator: Mulugeta Velasco ([facility])
Impression:
Transfer from [facility] 04/17/2025 for CABG
Recurrent syncope secondary to ventricular tachycardia
Multivessel coronary artery disease
s/p CABG x4 TRAYLOR-LAD, SVG-OM1, OM2 seq, SVG-PDA, AGGIE clip 04/20/25
Type 2 diabetes
Hyperlipidemia
GERD
History of smoking/tobacco abuse
Pulmonary nodules
Cervical radiculopathy
Cardiac catheterization from 04/17/2025 at [facility]: Multivessel coronary artery disease 70% proximal to mid LAD with IFR of 0.80. Left circumflex: 80% proximal stenosis at bifurcation of OM1. RCA: Proximal 100% IT TECHNICAL ARCHITECT.
Echo DH Dec 16 2025: Ejection fraction is 60-65%, mild LVH, no significant valve dz.
Plan:
-Patient presented with episode of VT and syncope. cath revealed MV CAD and was referred for CABG
-s/p CABG x4 TRAYLOR-LAD, SVG-OM1, OM2 seq, SVG-PDA, AGGIE clip 04/20/25
-off pressors, but with marginal blood pressure (80s-60s). May need to hold beta-wali or consider addition of midodrine. remains on insulin gtt, to be weaned off next 24 hours
-in SR on review of tele. EKG 04/21 with evidence of pericarditis, follow pain
-hgb 11.2. continue asa, plavix
-continue statin therapy
-needs improved diabetic control, lapse in care due to loss of insurance in past
-continue post op care
-d/w CT surgery DIRECTOR BUSINESS
HPI :
Patient is a 64-year-old male with past medical history significant for type 2 diabetes, hyperlipidemia, GERD and history of smoking who was transferred from [facility] on 04/17/2025 after being diagnosed with multivessel
coronary artery disease. Over last week patient had multiple episodes of lightheaded/dizziness and syncope and was found to have ventricular tachycardia. Patient had syncopal episode on 04/12/2025 while at work prompting him to seek treatment at
[facility] emergency department. He was treated and discharged home the next day. He had a second episode of syncope while sitting on the couch at home on 04/13/2025 prompting his significant other to call 911 and was taken to [facility] 04/13/2025. Patient had several near syncopal episodes where he felt lightheaded and dizzy and was found to have ventricular tachycardia on telemetry. Patient reports he had echocardiogram, carotid ultrasound, CT of
chest. Unfortunately records are not available at time of this evaluation. They have been requested. He underwent cardiac catheterization which demonstrated severe multivessel CAD. Patient requested transfer to [facility] for CT surgery consult.
Patient admits prior to his recent syncopal events he was fairly active going for walks with his dog most days of the week. He denies having chest pain shortness of breath or changes in functional capacity. He does note right arm/shoulder pain
which he reports is from a pinched nerve in his neck. He has history of tobacco abuse/smoking and currently vapes.
Progress Note - Energy Administrator
Subjective
Date of Service: April 21, 2025
No complaints. Reports pain is significantly improved status post belching
Objective
Labs:
04/21/25 03:14
04/21/25 03:14
Labs
Hgb 11.2 g/dL (13.0-18.0) L 04/21/25 03:14
Hct 32.7 % (39.0-52.0) L 04/21/25 03:14
Plt Count 209 10^3/uL (130-400) 04/21/25 03:14
PT 16.4 Sec (11.4-14.6) H 04/20/25 20:23
INR 1.34 04/20/25 20:23
APTT 29.5 Sec (23.4-35.0) 04/20/25 20:23
Sodium 133 mmol/L (135-145) L 04/21/25 03:14
Potassium 4.6 mmol/L (3.5-5.1) 04/21/25 03:14
BUN 13 mg/dl (9-20) 04/21/25 03:14
Creatinine 0.7 mg/dL (0.7-1.3) 04/21/25 03:14
Glucose 86 mg/dl (70-99) 04/21/25 03:14
Vital Signs and I&O:
Vital Signs
Temp Pulse Resp BP Pulse Ox
98.9 F 80 18 86/63 93
04/21/25 11:00 04/21/25 12:45 04/21/25 11:00 04/21/25 12:00 04/21/25 12:15
Vital Signs
Temp Pulse Resp BP Pulse Ox
98.9 F 80 18 86/63 93
04/21/25 11:00 04/21/25 12:45 04/21/25 11:00 04/21/25 12:00 04/21/25 12:15
Intake & Output
04/19/25 04/20/25 04/21/25 04/22/25
07:59 07:59 07:59 07:59
Intake Total 480 / 480 1809.2 / 1819.4 245.0 / 245.0
Output Total 1650 / 1750 100 / 100
Balance 480 / 480 159.2 / 69.4 145.0 / 145.0
Physical Exam
Physical Exam
GEN: No distress, awake, alert, oriented x3. Sitting in chair
HEENT: supple, anicteric, mmm, EOMI
LUNGS: Diminished bilaterally, no wheezes
CV: Reg, S1/S2, no murmur
ABD: soft, BS+, NT/ND
EXT: No cyanosis, clubbing, edema
NEURO: Gross non-focal
SKIN: Warm, pink, dry. No rash. Chest tubes in place
[2025-04-21] MEDS: FERRLECIT 110 MG IV (14:25)
[2025-04-21] MEDS: TYLENOL 975 MG PO ×2 (14:25→21:13)
[2025-04-21] MEDS: NSS IV (14:26)
[2025-04-21 14:53] LABS: Glucose - Point of Care 92 mg/dl (70-99)
--- NOTE | 2025-04-21 15:20 | CM ---
dc plans remain for dc to home when medcially stable
--- NOTE | 2025-04-21 15:43 | PTCARENOTE ---
pt assisted from chair to bed, pleural CT removed without incident.
[2025-04-21] MEDS: CRESTOR 20 MG PO (17:02)
[2025-04-21 17:05] LABS: Glucose - Point of Care 88 mg/dl (70-99)
[2025-04-21 18:06] LABS: Glucose - Point of Care 116 mg/dl (70-99)
[2025-04-21] MEDS: NOVOLOG FLEXPEN 4 UNITS SC (18:19)
[2025-04-21] MEDS: REMOVE LIDOCAINE PATCH 1 PATCH REMOVE (19:52)
--- NOTE | 2025-04-21 20:00 | PTCARENOTE ---
Patient received from RN @ 1900. Patient lying in bed w/ call munoz in reach. AOx3. Ambulated out of room 1x assist. SR on monitor BP 117/56 HR 77. Heart sounds audible. Radial and pedal pulses present. +1 generalized edema noted. Lungs
diminished in bases. POX 93% on 2L NC. IS 1000. 2x mediastinal CT set to -20 suction draining serosanguineous fluid. No crepitus, tidaling, or air leaks noted. Bowel sounds hypoactive. No nausea noted. Voiding carmelita clear urine. RIJ cordis
and PIV patent and intact. All surgical sites C/D/I. Insulin infusing per protocol. See worklist for more details.
[2025-04-21 20:07] LABS: Glucose - Point of Care 155 mg/dl (70-99)
[2025-04-21 22:22] LABS: Glucose - Point of Care 109 mg/dl (70-99)
--- NOTE | 2025-04-21 23:11 | PTCARENOTE ---
Patient reassessed. SR on monitor. VSS. Bladder scanned 270ml due to low urine output.
[2025-04-22] VITALS (32 sets, daily range): BP systolic 91–135; BP diastolic 50–125; PULSE 90; O2SAT 93–96; BMI 25.9
[2025-04-22 00:28] LABS: Glucose - Point of Care 101 mg/dl (70-99)
[2025-04-22 02:31] LABS: Glucose - Point of Care 94 mg/dl (70-99)
[2025-04-22] MEDS: NOVOLIN R INSULIN INFUSION 100 IV (04:09)
--- NOTE | 2025-04-22 04:21 | W.PN.CT ---
Today's Communication / Plan
-
Plan:
-No major issues overnight. Hemodynamically and neurologically intact
-Off all drips but insulin per protocol
-BP has been soft postop, BB held last night
-Will replete ca++ to help augment BP
-EKG c/w acute pericarditis, Cardiology recommends Colchicine, will start today
-Monitor chest tube for possible D/C: 140/310. F/U CXR
-Has temporary V-wires
-Wean off O2, currently on 2L NC
-Encourage use of IS
-OOB into chair/Ambulate
Assessment / Plan
-
- VT with recurrent syncope/ mv-CAD - s/p s/p CABG x4 (TRAYLOR-LAD, SVG-OM1- seq OM2, SVG-PDA); LAAE clip # [address] Palacios on 04/20/25, pod #2
- Transferred from [facility] 04/17/2025 for CABG
- Recurrent syncope secondary to ventricular tachycardia
- Multivessel coronary artery disease
- Type 2 diabetes, HgA1C 11.4
- Hyperlipidemia
- GERD
- History of smoking/tobacco abuse, vapes
- Mild emphysema on chest CT
- Pulmonary nodules RML 11 mm
- Cervical radiculopathy
- Lapse in care due to loss of insurance in past
Cardiac catheterization from 04/17/2025 at [facility]: Multivessel coronary artery disease 70% proximal to mid LAD with IFR of 0.80. Left circumflex: 80% proximal stenosis at bifurcation of OM1. RCA: Proximal 100% MOGUL OPERATOR.
Echo 04/18/25: Ejection fraction is 60-65%, mild LVH, no significant valve dz.
- Acute postop blood loss anemia
- Acute postop atelectasis
- Acute postop hypovolemia with subsequent hypervolemia
- Acute postop suspected pericarditis/ + rub
- Acute postop hyponatremia
Discussed patient care with: Cardiology, Nursing, Respiratory Therapy and Pharmacy
Subjective
-
Date of Service: April 22, 2025
Pt c/o mild incisional pain, otherwise feels well
Objective Data
-
PT 16.4 Sec (11.4-14.6) H 04/20/25 20:23
INR 1.34 04/20/25 20:23
APTT 29.5 Sec (23.4-35.0) 04/20/25 20:23
Vital Signs
Vital Signs
Temp Pulse Resp BP Pulse Ox
98.5 F 81 15 95/54 94
04/22/25 00:00 04/22/25 04:00 04/22/25 02:52 04/22/25 04:00 04/22/25 02:52
CT Intake/Output/Weight
04/21/25 04/21/25 04/22/25
06:59 18:59 06:59
Intake Total 1034.7 / 1809.2 630.5 / 709.7 79.2 / 709.7
Output Total 1035 / 1650 410 / 1250 840 / 1250
Balance -0.3 / 159.2 220.5 / -540.3 -760.8 / -540.3
SaO2: 94 (2L)
Physical Exam
-
General: Awake, Oriented and AOx3
Cardiovascular: Regular rate & rhythm, No Murmurs and Rub (mild rub)
Respiratory: Decreased Breath Sounds (at bases, otherwise clear)
Sternum: Stable
Incision: Clean, Dry, Intact and Dressing Intact
Extremities: Other (+trace edema)
Data Reviewed
-
Lab Results: Results Reviewed
Medications: Active Meds Reviewed
Chest X-Ray: Report Reviewed and Image Reviewed
ECG: Report Reviewed and Image Reviewed
[2025-04-22 04:23] LABS: Glucose - Point of Care 100 mg/dl (70-99)
--- NOTE | 2025-04-22 04:26 | PTCARENOTE ---
Patient reassessed. Patient resting comfortably. SR on monitor. VSS. Labs drawn.
[2025-04-22 05:16] LABS: Blood Urea Nitrogen 14 mg/dl (9-20); Calcium 7.7 mg/dl (8.4-10.2); Carbon Dioxide 26 mmol/L (22-30); Chloride 99 mmol/L (98-107); Estimated Creatinine Clearance 91 ml/min; Glucose 96 mg/dl (70-99); Magnesium 1.9 mg/dl (1.6-2.3); Potassium 4.1 mmol/L (3.5-5.1); Sodium 130 mmol/L (135-145); eGFR > 60.00
[2025-04-22 05:25] LABS: Hematocrit 28.7 % (39.0-52.0); Hemoglobin 9.6 g/dL (13.0-18.0); Mean Corp Hgb Conc. 33.4 g/dL (33.0-37.0); Mean Corpuscular Volume 89.4 fL (80.0-94.0); Platelet Count 163 10^3/uL (130-400); Red Cell Dist. Width 13.3 % (11.5-14.5)
[2025-04-22] MEDS: COLCHICINE 0.6 MG PO (05:59)
[2025-04-22] MEDS: CALCIUM GLUCONATE 130 MG IV (06:00)
[2025-04-22] MEDS: TYLENOL 975 MG PO ×3 (06:20→19:43)
[2025-04-22 06:23] LABS: Glucose - Point of Care 102 mg/dl (70-99)
--- NOTE | 2025-04-22 08:00 | PTCARENOTE ---
Patient received from table games shift manager resting oob in chair, AAO x 3, states pain controlled. NSR via cm, SaO2 @ 94% on RA. RIJ Cordis w/kvo infusing. Insulin infusing peripherally, titrating per glycemic protocol. Mediastinal chest tubes x 2,
Y-connected to one pleurevac placed to -20cm suction, no air leaks noted. All procedural sites stable. Epicardial V-wire, insulated to chest wall. Patient updated to plan of care for the day, in agreement. See work list for full assessment and
interventions performed.
[2025-04-22 08:06] LABS: Glucose - Point of Care 122 mg/dl (70-99)
--- NOTE | 2025-04-22 08:21 | W.PN.INTV ---
Today's Communication / Plan
Recommendations
- Transition insulin infusion to subcu per protocol
- Incentive spirometry
- Outpatient follow-up with [facility] pulmonary clinic for lung nodule
- [facility] [employer] service will sign off once patient is transferred out of ICU
Assessment
-
Patient is a 64-year-old gentleman with newly detected multivessel coronary artery disease, s/p coronary artery bypass graft POD # 2
Titrated off pressors per protocol, MAP of 70
ECHO reviewed with normal function
Management of chest tubes per primary service, no air leak noted
Extubated, currently saturating 94% on room air.
CXR suggestive of left lower lobe atelectasis, slightly improved
Encouraged incentive spirometry
Maintain supplement oxygen as needed
PFT suggestive of moderate COPD. Emphysema noted on imaging. Added DuoNebs on an as-needed basis.
Aspiration precautions
Encouraged incentive spirometry, OOB/ambulation/early mobility
Advance diet as tolerated following extubation
GI prophylaxis: Protonix
Monitor critical I/O's
Fonseca/chest tube output
Hb/platelets postoperatively, mild drift
Trend CBC for now
Can transfuse if indicated for Hb <7, plt <50 in surgical patients
DVT prophylaxis including SCDs
Insulin protocol initiated and ongoing
Transition to SQ/off as indicated per team, anticipate later today
Other medical diagnoses:
- Lung nodule. 11 mm RML nodule. With concomitant emphysema, needs further work up possibly PET-CT/tissue diagnosis etc. Will pursue further as out patient with [facility] clinic. Follow up information added to the discharge section. Patient updated
regarding the imaging finding, risk of malignancy and need for close follow-up as outpatient.
- Emphysema on imaging. COPD, Moderate severity. Needs additional workup including pulmonary function testing, 6-minute walk test as outpatient.
- History of smoking
- HLD
- DM
- GERD
- Ventricular tachycardia
Critical Care time [39] mins -- The patient is admitted for acute critical illness for the treatment of vital organ failure and/or prevention of further life-threatening conditions. Total care includes time spent in review of history, physical exam,
medications, hemodynamic/ventilator parameters, laboratory data, imaging and discussion with house staff, pharmacy, respiratory therapy, health informatics specialist, and nursing
Data:
CXR 04/2025: 1. Mild central pulmonary vascular congestion.
2. Haziness of the left hemidiaphragm, suggestive of left lower lobe subsegmental atelectasis.
PFT 04/2025: FEV1, 73% of predicted, FEV1/FVC of 60. Moderate obstructive airway disease with positive bronchodilator response.
CT Chest 04/2025: No aortic aneurysm. No calcified plaque of the ascending aorta. Calcified coronary artery plaque formation. Small to moderate hiatal hernia. No apparent hilar or mediastinal mass or enlarged adenopathy.
Mild emphysematous lung pattern.
Right middle lobe 11 mm pulmonary nodule. Occasional scattered nonspecific micronodules. Recommend follow-up PET/CT
ECHO 04/2025: 1. Ejection fraction is 60-65% by Bee's method of discs.
2. Normal left ventricular size and function.
3. Mild concentric left ventricular hypertrophy.
4. Right ventricular size and systolic function are within normal limits.
5. Trace mitral valve regurgitation.
6. Trace tricuspid regurgitation. Estimated pulmonary artery pressure of 28 mmHg assuming a right atrial pressure of 3 mmHg.
7. Aortic calcification.
8. There are no prior studies available for comparison.
Subjective Dataa
Subjective Data
Date of Service:
Date of Service: April 22, 2025
Subjective:
Comfortably sitting in chair in no acute distress.
Review of Systems
Genitourinary: Other (All 14 systems reviewed and negative except as stated above in the history of present illness.)
Objective Data
Data Reviewed
Vital Signs / I&O / Oxygen:
Vital Signs
Temp Pulse Resp BP Pulse Ox
98.6 F 88 17 135/125 94
04/22/25 08:00 04/22/25 08:01 04/22/25 08:00 04/22/25 08:01 04/22/25 08:00
Intake and Output
04/21/25 04/22/25 04/23/25
06:59 06:59 06:59
Intake Total 1798.4 / 1809.2 732.3 / 743.3 22.2 / 22.2
Output Total 1570 / 1650 1270 / 1270 305 / 305
Balance 228.4 / 159.2 -537.7 / -526.7 -282.8 / -282.8
SaO2 [CPAP] 99
SaO2 [SIMV] 98
SaO2 94
Nasal Cannula flow liters per 2
minute
Physical Exam
General: Comfortable
HEENT: Normocephalic
Cardiovascular: S1-S2
Respiratory: Clear
GI: Soft and Non Distended
Neurology: Awake and Alert
Skin: Warm
Labs/Micro/Reports
Lab Data
04/22/25 04:21
04/22/25 04:21
[2025-04-22] MEDS: NOVOLOG FLEXPEN 2 UNITS SC ×2 (08:24→13:48)
--- NOTE | 2025-04-22 08:33 | PTCARENOTE ---
Erroneous blood pressures x 2 captured via [employer] monitor.
[2025-04-22] MEDS: MAGNESIUM OXIDE 400 MG PO ×2 (08:42→19:43)
[2025-04-22] MEDS: PLAVIX 75 MG PO (08:42)
[2025-04-22] MEDS: PROTONIX 40 MG PO (08:42)
[2025-04-22] MEDS: SENOKOT 8.6 MG PO ×2 (08:43→19:42)
[2025-04-22] MEDS: NEURONTIN 100 MG PO ×3 (08:43→19:42)
[2025-04-22] MEDS: PACERONE 200 MG PO ×3 (08:43→19:43)
[2025-04-22] MEDS: TOPROL XL 12.5 MG PO (08:43)
[2025-04-22] MEDS: LOW STRENGTH ASPIRIN 81 MG PO (08:44)
[2025-04-22] MEDS: BACTROBAN 2% OINTMENT 1 APPLIC NASAL ×2 (08:44→19:42)
[2025-04-22] MEDS: LIDOCAINE 4% PATCH TOPICAL (08:51)
[2025-04-22 09:08] LABS: Glucose - Point of Care 197 mg/dl (70-99)
[2025-04-22 10:04] LABS: Glucose - Point of Care 187 mg/dl (70-99)
[2025-04-22 11:12] LABS: Glucose - Point of Care 162 mg/dl (70-99)
--- NOTE | 2025-04-22 12:08 | PTCARENOTE ---
Epicardial V-wire d/c'd by AMBAR Chris. Patient tolerated well. Bedrest maintained x 1 hour, VS obtained per protocol. Patient resting comfortably.
[2025-04-22] MEDS: LASIX 40 MG IV (12:35)
[2025-04-22 13:08] LABS: Glucose - Point of Care 175 mg/dl (70-99)
[2025-04-22] MEDS: FERRLECIT 110 MG IV (13:48)
[2025-04-22 15:05] LABS: Glucose - Point of Care 210 mg/dl (70-99)
[2025-04-22] MEDS: NSS IV (15:20)
[2025-04-22] MEDS: GLUCOPHAGE 1000 MG PO (16:09)
[2025-04-22] MEDS: FARXIGA 5 MG PO (16:09)
[2025-04-22 17:53] LABS: Glucose - Point of Care 185 mg/dl (70-99)
[2025-04-22] MEDS: CRESTOR 20 MG PO (17:53)
[2025-04-22] MEDS: NOVOLOG FLEXPEN-MODERATE RESISTANCE 1 UNITS SC (17:53)
[2025-04-22] MEDS: KCL ELIXIR 20 MEQ PO (19:42)
[2025-04-22] MEDS: REMOVE LIDOCAINE PATCH REMOVE (19:43)
--- NOTE | 2025-04-22 19:45 | PTCARENOTE ---
assumed care of pt from previous RN. pt A&Ox4, resting in bed at time of assessment. SR on tele-monitor. CT x2 (mediastinal x2) to -20cm wall suction. draining serosanguineous drainage. POX 92% on RA. abd s/n, hypoactive BS. all surgical sites
stable, CDI. R IJ Cordis w/ KVO. PIV x2 intact. see worklist for complete nursing assessment, interventions, VS, and I&Os.
[2025-04-22 19:49] LABS: Glucose - Point of Care 168 mg/dl (70-99)
[2025-04-23 00:06] VITALS: BP 102/60
--- NOTE | 2025-04-23 03:48 | W.PN.CT ---
Today's Communication / Plan
-
Plan:
-No major issues overnight. Hemodynamically and neurologically intact
-Off all drips
-BP has been soft postop, improving, will try Toprol XL 12.5 Qdaily
-Consider D/C of chest tubes: 2 med 60/210
-D/C cordis
-Will replete ca++ to help augment BP
-EKG c/w acute pericarditis, on Colchicine
-Temporary V-wires pulled yesterday without incident
-Monitor hyponatremia, 133. Fluid restriction, low dose Lasix if BP permits
-Encourage use of IS
-OOB into chair/Ambulate
-Home 1-2 days
Assessment / Plan
-
- VT with recurrent syncope/ mv-CAD - s/p s/p CABG x4 (TRAYLOR-LAD, SVG-OM1- seq OM2, SVG-PDA); LAAE clip # [address] Palacios on 04/20/25, pod #3
- Transferred from [facility] 04/17/2025 for CABG
- Recurrent syncope secondary to ventricular tachycardia
- Multivessel coronary artery disease
- Type 2 diabetes, HgA1C 11.4
- Hyperlipidemia
- GERD
- History of smoking/tobacco abuse, vapes
- Mild emphysema on chest CT
- Pulmonary nodules RML 11 mm
- Cervical radiculopathy
- Lapse in care due to loss of insurance in past
Cardiac catheterization from 04/17/2025 at [facility]: Multivessel coronary artery disease 70% proximal to mid LAD with IFR of 0.80. Left circumflex: 80% proximal stenosis at bifurcation of OM1. RCA: Proximal 100% WHITE KID BUFFER.
Echo 04/18/25: Ejection fraction is 60-65%, mild LVH, no significant valve dz.
- Acute postop blood loss anemia
- Acute postop atelectasis
- Acute postop hypovolemia with subsequent hypervolemia
- Acute postop suspected pericarditis/ + rub
- Acute postop hyponatremia
Discussed patient care with: Cardiology, Nursing, Respiratory Therapy, Pharmacy and Care Team
Subjective
-
Date of Service: April 23, 2025
Pt c/o mild incisional pain, otherwise feels well
Objective Data
-
PT 16.4 Sec (11.4-14.6) H 04/20/25 20:23
INR 1.34 04/20/25 20:23
APTT 29.5 Sec (23.4-35.0) 04/20/25 20:23
Vital Signs
Vital Signs
Temp Pulse Resp BP Pulse Ox
98.5 F 84 14 102/60 94
04/23/25 00:00 04/23/25 00:06 04/23/25 00:00 04/23/25 00:06 04/23/25 00:00
CT Intake/Output/Weight
04/22/25 04/22/25 04/23/25
06:59 18:59 06:59
Intake Total 101.8 / 743.3 1098.6 / 1158.6 60 / 1158.6
Output Total 860 / 1270 2700 / 3380 680 / 3380
Balance -758.2 / -526.7 -1601.4 / -2221.4 -620 / -2221.4
SaO2: 94 (RA)
Physical Exam
-
General: Awake, Oriented and AOx3
Cardiovascular: Regular rate & rhythm, No Murmurs, No Rub and No Gallop
Respiratory: Decreased Breath Sounds (at bases, otherwise clear)
Sternum: Stable
Incision: Clean, Dry, Intact and Dressing Intact
Extremities: Other (+trace edema)
Data Reviewed
-
Lab Results: Results Reviewed
Medications: Active Meds Reviewed
Chest X-Ray: Report Reviewed and Image Reviewed
ECG: Report Reviewed and Image Reviewed
[2025-04-23 04:43] VITALS: BP 99/53
[2025-04-23] MEDS: TYLENOL 975 MG PO ×3 (04:52→20:23)
[2025-04-23 05:32] LABS: Hematocrit 29.3 % (39.0-52.0); Hemoglobin 9.9 g/dL (13.0-18.0); Mean Corp Hgb Conc. 33.8 g/dL (33.0-37.0); Mean Corpuscular Volume 89.9 fL (80.0-94.0); Platelet Count 171 10^3/uL (130-400); Red Cell Dist. Width 13.3 % (11.5-14.5)
[2025-04-23 05:38] LABS: Blood Urea Nitrogen 16 mg/dl (9-20); Calcium 7.6 mg/dl (8.4-10.2); Carbon Dioxide 24 mmol/L (22-30); Chloride 99 mmol/L (98-107); Estimated Creatinine Clearance 81 ml/min; Glucose 121 mg/dl (70-99); Magnesium 2.0 mg/dl (1.6-2.3); Potassium 4.2 mmol/L (3.5-5.1); Sodium 133 mmol/L (135-145); eGFR > 60.00
[2025-04-23 06:00] VITALS: BMI 25.1
[2025-04-23] MEDS: CALCIUM GLUCONATE 130 MG IV (07:02)
[2025-04-23 07:54] VITALS: BP 118/63
--- NOTE | 2025-04-23 08:23 | PTCARENOTE ---
Patient received from weight shifter resting oob in chair, AAO x 3, denies pain. NSR via cm, SaO2 @ 97% on RA. RIJ Cordis w/kvo infusing. Mediastinal chest tubes, Y-connected to one pleurevac, to -20cm suction w/no air leak appreciated. All procedural
sites stable. Dr. Palacios and CT team to bedside, patient updated to plan of care, in agreement. See work list for full assessment and interventions performed.
[2025-04-23] MEDS: LIDOCAINE 4% PATCH TOPICAL (08:40)
[2025-04-23] MEDS: NOVOLOG FLEXPEN-MODERATE RESISTANCE SC ×3 (08:44→18:16)
[2025-04-23 08:45] LABS: Glucose - Point of Care 131 mg/dl (70-99)
[2025-04-23] MEDS: PLAVIX 75 MG PO (08:45)
[2025-04-23] MEDS: MAGNESIUM OXIDE 400 MG PO ×2 (08:45→20:23)
[2025-04-23] MEDS: LASIX 20 MG PO (08:45)
[2025-04-23] MEDS: LOW STRENGTH ASPIRIN 81 MG PO (08:45)
[2025-04-23] MEDS: COLCHICINE 0.3 MG PO (08:45)
[2025-04-23] MEDS: TOPROL XL 12.5 MG PO (08:46)
[2025-04-23] MEDS: SENOKOT 8.6 MG PO ×2 (08:46→20:23)
[2025-04-23] MEDS: PACERONE 200 MG PO ×3 (08:46→20:23)
[2025-04-23] MEDS: FARXIGA 5 MG PO (08:46)
[2025-04-23] MEDS: NEURONTIN 100 MG PO ×3 (08:46→20:22)
[2025-04-23] MEDS: PROTONIX 40 MG PO (08:46)
[2025-04-23] MEDS: BACTROBAN 2% OINTMENT 1 APPLIC NASAL ×2 (08:47→20:22)
[2025-04-23] MEDS: GLUCOPHAGE XR EXTENDED RELEASE 1500 MG PO (08:49)
[2025-04-23] MEDS: NSS IV (11:49)
[2025-04-23 12:14] VITALS: BP 107/64
--- NOTE | 2025-04-23 12:17 | PTCARENOTE ---
VS obtained, assessment stable. Patient oob in chair, having lunch. Voiding spontaneously. States pain controlled.
[2025-04-23 12:18] LABS: Glucose - Point of Care 130 mg/dl (70-99)
[2025-04-23] MEDS: FERRLECIT 110 MG IV (14:08)
[2025-04-23] MEDS: ZOFRAN 4 MG IV (15:52)
[2025-04-23 15:55] VITALS: BP 112/69
[2025-04-23] MEDS: CRESTOR 20 MG PO (18:00)
[2025-04-23 18:05] LABS: Glucose - Point of Care 170 mg/dl (70-99)
--- NOTE | 2025-04-23 20:15 | PTCARENOTE ---
assumed care of pt from previous RN. pt A&Ox4, resting in bed at time of assessment. SR on tele-monitor. POX 97% on RA. abd s/n, hypoactive BS. pt confirms passing gas. pt confirms poor appetite. no BM, pt confirms usual BM pattern. voiding clear,
yellow colored urine. all surgical sites stable, CDI. PIV intact. see worklist for complete nursing assessment, interventions, VS, and I&Os.
[2025-04-23 20:21] VITALS: BP 121/64
[2025-04-23] MEDS: REMOVE LIDOCAINE PATCH REMOVE (20:23)
[2025-04-23 20:40] LABS: Glucose - Point of Care 146 mg/dl (70-99)
--- NOTE | 2025-04-24 01:15 | PTCARENOTE ---
assessment remains unchanged. VSS.
[2025-04-24 01:18] VITALS: BP 117/66
--- NOTE | 2025-04-24 04:22 | W.PN.CT ---
Today's Communication / Plan
-
Plan:
-No major issues overnight. Hemodynamically and neurologically intact
-Off all drips
-BP has been soft postop, improved, tolerating Toprol XL 12.5 Qdaily
-EKG c/w acute pericarditis, on Colchicine
-Temporary V-wires pulled 04/22 without incident
-Monitor hyponatremia, 134. Fluid restriction, low dose Lasix if BP permits
-F/U 2-view CXR
-Encourage use of IS
-OOB into chair/Ambulate
-Home today
Assessment / Plan
-
- VT with recurrent syncope/ mv-CAD - s/p s/p CABG x4 (TRAYLOR-LAD, SVG-OM1- seq OM2, SVG-PDA); LAAE clip # [address] Palacios on 04/20/25, pod #4
- Transferred from [facility] 04/17/2025 for CABG
- Recurrent syncope secondary to ventricular tachycardia
- Multivessel coronary artery disease
- Type 2 diabetes, HgA1C 11.4
- Hyperlipidemia
- GERD
- History of smoking/tobacco abuse, vapes
- Mild emphysema on chest CT
- Pulmonary nodules RML 11 mm
- Cervical radiculopathy
- Lapse in care due to loss of insurance in past
Cardiac catheterization from 04/17/2025 at [facility]: Multivessel coronary artery disease 70% proximal to mid LAD with IFR of 0.80. Left circumflex: 80% proximal stenosis at bifurcation of OM1. RCA: Proximal 100% AEROSOL SUPERVISOR.
Echo 04/18/25: Ejection fraction is 60-65%, mild LVH, no significant valve dz.
- Acute postop blood loss anemia
- Acute postop atelectasis
- Acute postop hypovolemia with subsequent hypervolemia
- Acute postop suspected pericarditis/ + rub
- Acute postop hyponatremia
Discussed patient care with: Cardiology, Nursing, Respiratory Therapy, Pharmacy and Care Team
Subjective
-
Date of Service: April 24, 2025
Pt c/o mild incisional pain, otherwise feels well. Ambulating halls without difficulty
Objective Data
-
PT 16.4 Sec (11.4-14.6) H 04/20/25 20:23
INR 1.34 04/20/25 20:23
APTT 29.5 Sec (23.4-35.0) 04/20/25 20:23
Vital Signs
Vital Signs
Temp Pulse Resp BP Pulse Ox
98 F 77 14 117/66 97
04/24/25 01:15 04/24/25 03:00 04/24/25 01:15 04/24/25 01:18 04/24/25 01:18
CT Intake/Output/Weight
04/23/25 04/23/25 04/24/25
06:59 18:59 06:59
Intake Total 100 / 1198.6 510 / 510
Output Total 1210 / 3910 1625 / 2375 750 / 2375
Balance -1110 / -2711.4 -1115 / -1865 -750 / -1865
SaO2: 97 (RA)
Physical Exam
-
General: Awake, Oriented and AOx3
Cardiovascular: Regular rate & rhythm, No Murmurs, No Rub and No Gallop
Respiratory: Decreased Breath Sounds (at bases, otherwise clear)
Sternum: Stable
Incision: Clean, Dry, Intact and Dressing Intact
Extremities: Other (+trace edema)
Data Reviewed
-
Lab Results: Results Reviewed
Medications: Active Meds Reviewed
Chest X-Ray: Report Reviewed and Image Reviewed
ECG: Report Reviewed and Image Reviewed
[2025-04-24 05:10] VITALS: BP 114/63
[2025-04-24 05:32] VITALS: BMI 24.3
[2025-04-24] MEDS: TYLENOL 975 MG PO (05:32)
[2025-04-24 05:50] LABS: Hematocrit 33.6 % (39.0-52.0); Hemoglobin 11.2 g/dL (13.0-18.0); Mean Corp Hgb Conc. 33.3 g/dL (33.0-37.0); Mean Corpuscular Volume 92.1 fL (80.0-94.0); Platelet Count 258 10^3/uL (130-400); Red Cell Dist. Width 13.6 % (11.5-14.5)
[2025-04-24 06:23] LABS: Blood Urea Nitrogen 16 mg/dl (9-20); Calcium 8.3 mg/dl (8.4-10.2); Carbon Dioxide 16 mmol/L (22-30); Chloride 102 mmol/L (98-107); Estimated Creatinine Clearance 81 ml/min; Glucose 126 mg/dl (70-99); Magnesium 2.0 mg/dl (1.6-2.3); Potassium 4.5 mmol/L (3.5-5.1); Sodium 135 mmol/L (135-145); eGFR > 60.00
[2025-04-24] MEDS: LIDOCAINE 4% PATCH TOPICAL (07:37)
[2025-04-24] MEDS: NSS IV (07:38)
[2025-04-24 08:15] VITALS: BP 119/64
[2025-04-24] MEDS: BACTROBAN 2% OINTMENT 1 APPLIC NASAL (08:20)
[2025-04-24] MEDS: NOVOLOG FLEXPEN-MODERATE RESISTANCE 1 UNITS SC (08:21)
[2025-04-24] MEDS: PLAVIX 75 MG PO (08:22)
[2025-04-24] MEDS: LOW STRENGTH ASPIRIN 81 MG PO (08:22)
[2025-04-24] MEDS: PROTONIX 40 MG PO (08:22)
[2025-04-24] MEDS: FARXIGA 5 MG PO (08:22)
[2025-04-24] MEDS: COLCHICINE 0.3 MG PO (08:22)
[2025-04-24] MEDS: GLUCOPHAGE XR EXTENDED RELEASE 1500 MG PO (08:22)
[2025-04-24] MEDS: TOPROL XL 12.5 MG PO (08:22)
[2025-04-24] MEDS: MAGNESIUM OXIDE 400 MG PO (08:23)
[2025-04-24] MEDS: NEURONTIN 100 MG PO (08:23)
[2025-04-24] MEDS: PACERONE 200 MG PO (08:23)
[2025-04-24] MEDS: SENOKOT 8.6 MG PO (08:23)
[2025-04-24] MEDS: LASIX 20 MG PO (08:23)
--- NOTE | 2025-04-24 08:23 | PN.DE.MGMTRT ---
Insulin Management
- -
04/24/2025: Diabetes Management Follow up
Patient admitted from 04/17 after multiple episodes of syncope. He had recently been at [facility] 04/12 to 04/13 for syncope. Discharged then had another episode of syncope and went to where he was found to have multivessel CAD. PMH HLD,
GERD, diabetes, vtach, vapes daily. Prior to admission was not taking medication for diabetes. A1C 11.3%, Cr 0.9, eGFR > 60.
Patient states he is followed by his primary doctor, Anuja for diabetes care, but he recently suggested he see endocrine. He has an appointment with Natali Patterson in July 2025. States he has a Nephosityongo meter but has not really used in in a
long time. He was prescribed Farxiga and metformin but had insurance issues and did not take them for 1 year. He states at they gave his a long acting insulin 36 units daily.
Patient is awake, alert, oriented, sitting up in chair, offers no complaints, able to discuss diabetes care plan. POD # 4 s/p CABG
Transitioned off glycemic protocol on 04/22 to Metformin and Farxiga.
Glucose has been stable, yesterday premeal 130 to 170, HS 146, fasting 160 this AM.
Will change Farxiga to 10 mg daily and increase Metformin to 1000 mg BID. Cont moderate corrective insulin
Discussed with nurse. Will cont to follow.
Diabetes History
- -
Type of Diabetes: 2
Pre-Admission Diabetes Regimen
04/24/25
05:33
Creatinine 0.9
Lab Results
Hemoglobin A1c 11.4 % (4.0-5.9) H 04/17/25 20:46
Insulin Pump Settings
IP Diabetes Regimen
04/23/25 04/23/25 04/23/25
08:43 12:14 18:05
Glucose
POC Glucose 131 H 130 H 170 H
04/23/25 04/24/25
20:38 05:33
Glucose 126 H
POC Glucose 146 H
Meal type: Lunch
Amount consumed: 50%
Patient Education
[2025-04-24 08:27] LABS: Glucose - Point of Care 161 mg/dl (70-99)
--- NOTE | 2025-04-24 09:01 | PTCARENOTE ---
Patient received from family literacy coordinator RN; AAOx3, responds spontaneously to RN and follows commands; Flat, agitated, and forgetful at times; VSS; NSR on monitor; Trace generalized edema; +2 DP and radial pulses; Shallow respirations; Lungs diminished at
bases; SpO2 92-96% on RA; IS 1000 ml; Poor appetite - refusing breakfast; Constipation - refusing laxatives besides scheduled Senokot at this time; Patient urinating clear, yellow urine; Surgical sites intact; PIVx1 - #20 right forearm; See nursing
documentation for further information
--- NOTE | 2025-04-24 09:05 | W.PN.CARDCBS ---
Today's Communication / Plan
-
Stable cardiology status for discharge
Impression / Plan
-
.
PCP: Wero Licea
Game Protector: Mulugeta Velasco ([facility])
Impression:
Transfer from [facility] 04/17/2025 for CABG
Recurrent syncope secondary to ventricular tachycardia
Multivessel coronary artery disease
s/p CABG x4 TRAYLOR-LAD, SVG-OM1, OM2 seq, SVG-PDA, AGGIE clip 04/20/25
Type 2 diabetes
Hyperlipidemia
GERD
History of smoking/tobacco abuse
Pulmonary nodules
Cervical radiculopathy
Cardiac catheterization from 04/17/2025 at [facility]: Multivessel coronary artery disease 70% proximal to mid LAD with IFR of 0.80. Left circumflex: 80% proximal stenosis at bifurcation of OM1. RCA: Proximal 100% ENDODONTIST.
Echo DH Apr 18 2025: Ejection fraction is 60-65%, mild LVH, no significant valve dz.
Plan:
Stable cardiology status for discharge
Follow-up with ATC
Discussed with CT surgery
HPI :
Patient is a 64-year-old male with past medical history significant for type 2 diabetes, hyperlipidemia, GERD and history of smoking who was transferred from [facility] on 04/17/2025 after being diagnosed with multivessel
coronary artery disease. Over last week patient had multiple episodes of lightheaded/dizziness and syncope and was found to have ventricular tachycardia. Patient had syncopal episode on 04/12/2025 while at work prompting him to seek treatment at
[facility] emergency department. He was treated and discharged home the next day. He had a second episode of syncope while sitting on the couch at home on 04/13/2025 prompting his significant other to call 911 and was taken to .
[facility] 04/13/2025. Patient had several near syncopal episodes where he felt lightheaded and dizzy and was found to have ventricular tachycardia on telemetry. Patient reports he had echocardiogram, carotid ultrasound, CT of
chest. Unfortunately records are not available at time of this evaluation. They have been requested. He underwent cardiac catheterization which demonstrated severe multivessel CAD. Patient requested transfer to [facility] for CT surgery consult.
Patient admits prior to his recent syncopal events he was fairly active going for walks with his dog most days of the week. He denies having chest pain shortness of breath or changes in functional capacity. He does note right arm/shoulder pain
which he reports is from a pinched nerve in his neck. He has history of tobacco abuse/smoking and currently vapes.
Progress Note - Game Protector
Subjective
Date of Service: April 24, 2025
No complaints
Objective
Labs:
04/24/25 05:33
04/24/25 05:33
Labs
Hgb 11.2 g/dL (13.0-18.0) L 04/24/25 05:33
Hct 33.6 % (39.0-52.0) L 04/24/25 05:33
Plt Count 258 10^3/uL (130-400) D 04/24/25 05:33
PT 16.4 Sec (11.4-14.6) H 04/20/25 20:23
INR 1.34 04/20/25 20:23
APTT 29.5 Sec (23.4-35.0) 04/20/25 20:23
Sodium 135 mmol/L (135-145) 04/24/25 05:33
Potassium 4.5 mmol/L (3.5-5.1) 04/24/25 05:33
BUN 16 mg/dl (9-20) 04/24/25 05:33
Creatinine 0.9 mg/dL (0.7-1.3) 04/24/25 05:33
Glucose 126 mg/dl (70-99) H 04/24/25 05:33
Vital Signs and I&O:
Vital Signs
Temp Pulse Resp BP Pulse Ox
97.8 F 82 16 119/64 95
04/24/25 08:16 04/24/25 08:15 04/24/25 08:16 04/24/25 08:15 04/24/25 08:30
Vital Signs
Temp Pulse Resp BP Pulse Ox
97.8 F 82 16 119/64 95
04/24/25 08:16 04/24/25 08:15 04/24/25 08:16 04/24/25 08:15 04/24/25 08:30
Intake & Output
04/22/25 04/23/25 04/24/25 04/25/25
06:59 06:59 06:59 06:59
Intake Total 732.3 / 743.3 1198.6 / 1198.6 510 / 510 610 / 610
Output Total 1270 / 1270 3910 / 3910 2850 / 2850 350 / 350
Balance -537.7 / -526.7 -2711.4 / -2711.4 -2340 / -2340 260 / 260
Physical Exam
Physical Exam
General: Well developed, well nourished in NAD.
Neck: Supple, no JVD, HJR, carotids +2 B/L, no bruits bilaterally.
Heart: Non displaced PMI, RRR, no murmurs, No S3, S4, no rubs.
Lungs: Scattered rhonchi
Sternotomy scar well-healed
Extremities: No clubbing, cyanosis or edema bilaterally.
Neuro: Grossly nonfocal, awake, alert and oriented x3.
[2025-04-24] MEDS: CALCIUM GLUCONATE 130 MG IV (09:11)
[2025-04-24 09:27] VITALS: BP 129/71
[2025-04-24 09:37] VITALS: BP 147/88
[2025-04-24 09:44] VITALS: BP 129/77; BP 141/88; PULSE 83; O2SAT 100; O2SAT 96
--- NOTE | 2025-04-24 10:33 | W.DCSUMMARY ---
Discharge Summary
Discharge Data
Date of Admission: 04/17/25
Date of Discharge: 04/24/25
-
Pending Results: No
Hospital Course
Primary care physician: Chadwick Licea
Outpatient fraternity house cook: Jose Juan Lemon
Inpatient consultants: [facility] cardiology, pulmonary manager port, diabetes nurse practitioner
Procedures:
1. CABG x 4. left atrial appendage clip (04/20/25)
Primary Diagnosis:
1. Multivessel Coronary Artery Disease
Secondary Diagnoses:
1. Type 2 diabetes mellitus (A1C 11.4)
2. Hyperlipidemia
3. Former smoker, current vaping
4. V tach with syncope
5. Mild emphysema on chest CT
6. Pulmonary nodules RML 11 mm
7. Cervical radiculopathy
HPI: Mr Louie is a 64yo male transferred from [facility] (originally admitted 04/13/25) on 04/17/25 for CABG evaluation after syncopal event at work. History is significant for smoking/vaping and poorly controlled DM as he was without insurance for a
period of time. Found to have mild emphysema on preop diagnostic CT scan.
Hospital course: Patient underwent diagnostic preop testing and was brought to the operating room on 04/20/2025 for CABG x 4 with TRAYLOR to LAD, saphenous vein graft to OM1 sequenced OM 2, saphenous vein graft to PDA and left atrial appendage 2.[address] Lori Palacios. Postprocedure TTE reported an EF of 60-65%. Patient received no intraoperative blood products. For further details, please see operative note. Patient returned to CVICU on Levophed which was quickly weaned off. Patient
extubated the afternoon of surgery. Patient was declined on postoperative day #1.. Aspirin and Plavix were initiated. Patient was evaluated by diabetes nurse practitioner. Colchicine was initiated for postoperative pericarditis. Home Crestor dose
was increased to high intensity 20 mg status post CABG. Temporary pacing wires were removed on postoperative day #2. Chest tubes were removed on postoperative day #3. Patient was diuresed with p.o. Lasix. Patient had no postoperative dysrhythmias
and prophylactic amiodarone was discontinued on discharge. Patient ambulated in halls and completed steps with cardiac rehab and deemed stable for discharge home. Labs on day of discharge: WBC 13.3, hemoglobin 11.2, platelets 258k, sodium 135,
potassium 4.5, creatinine 0.9. Two-view chest x-ray reported stable bilateral pleural effusions. Patient will be discharged home on Lasix 20 mg x 7 days with follow-up CBC and BMP in 1 week. MFM changed to 1000mg BID.
Home medication changes:
Lasix 20mg daily x 10 days
Crestor increased to 20mg daily
MFM changed to 1000mg twice daily
Discharge Plan
-
Patient Disposition: Home (Routine Discharge)
Discharge Diagnosis/Procedures: CABG x 4, left atrial appendage clip (04/20/25)
Condition: Good
Diet: Low Cholesterol and Diabetic, Carb Controlled
Activity: No strenuous activity
Driving Restrictions: Not until seen by your Dr
Bathing Restrictions: OK to Shower
Blood Work: CBC/BMP in 1 week
Other Services: Cardiac Rehab
Specialty Instructions: Weigh Daily- Call MD for wt gain/loss 3 lbs overnight/5 lbs in 1 week
Activity Restrictions/Additional Instructions:
Please call to make appointments for Phase II Cardiac Rehab:
[facility]
[phone]
ACTIVITY:
-No strenuous activity: no heavy lifting, pushing, pulling anything over 15 pounds for one month
-continue to use stairs as tolerated
DRIVING RESTRICTIONS:
-No driving for one month or until approved by your surgeon
WOUND CARE:
-Shower daily. Use soap & water.
-No lotions, creams or powders on incision area.
DIET:
-continue a low fat/low cholesterol diet.
-IF you are diabetic, continue carb controlled diet.
CARDIAC REHAB:
-Please make appointment to start in 5-6 weeks with your local hospital program. (See Cardiac Rehabilitation Discharge Booklet).
SPECIALTY INSTRUCTIONS:
-Weigh yourself daily. Call your physician for any weight gain/loss of 3 lbs overnight or 5 lbs in one week.
-REPORT any clicking noise or uneven appearance of your sternum to your surgeon immediately.
-If you smoke, you are instructed to quit. The [place] smoking hotline phone number is [phone]
Referrals:
CT Transitional Care Nurse [Outside]
Referral Note:
The Cardiothoracic Transitional Care Nurse will call you to set up a visit in 1-2 days.
Aman Jung MD [Active, Pulmonary Medicine] - in four to six weeks
Referral Note: For lung nodule
Wero Licea DO [Family Provider, Family Practice]
Jojo Mendoza MD [Active, Cardiology] - 05/18/25 1:30 pm
Referral Note: [facility]
Lori Palacios MD [Active, Cardiac Surgery] - 05/17/25 10:30 am
Additional Discharge Medication Instructions: Rosuvastatin dose increased from 5 to 20mg daily
Prescriptions:
New
cyclobenzaprine 10 mg Tablet
5 mg PO Q8HPRN PRN (Reason: muscle spasm) Qty: 10 0RF
clopidogrel 75 mg Tablet
75 mg PO DAILY Qty: 30 2RF
colchicine 0.6 mg Tablet
0.6 mg PO DAILY Qty: 30 1RF
metoprolol succinate 25 mg Tablet Extended Release 24 Hr
12.5 mg PO DAILY Qty: 30 1RF
acetaminophen 325 mg Tablet
650 mg PO Q4HPRN PRN (Reason: mild pain,headache,temp >101F ) Qty: 0 0RF
rosuvastatin 20 mg Tablet
20 mg PO QPM Qty: 30 0RF
pantoprazole 40 mg Tablet,Delayed Release (Dr/Ec)
40 mg PO DAILY Qty: 30 1RF
aspirin 81 mg Tablet,Chewable
81 mg PO DAILY Qty: 0 0RF
furosemide 20 mg Tablet
20 mg PO DAILY Qty: 10 0RF
gabapentin 100 mg Capsule
100 mg PO TID Qty: 30 0RF
oxycodone 5 mg Tablet
5 mg PO Q4HPRN PRN (Reason: severe pain) Qty: 10 0RF
metformin 1,000 mg tablet
1,000 mg PO BID Qty: 60 2RF
Continued
dapagliflozin propanediol [Farxiga] 5 mg Tablet
5 mg PO DAILY
Discontinued
metformin 500 mg Tablet
1,500 mg PO DAILY
rosuvastatin 5 mg Tablet
5 mg PO DAILY
naproxen sodium [Aleve] 220 mg Capsule
220 mg PO Q12H PRN (Reason: Neck pain)
Discharge Orders:
Discharge Patient (As Directed); Ordered 04/24/25
Ordered By: Raven Morrison
Care Plan Goals
Care Plan Goals:
Problem: Readiness for enhanced knowledge related to diagnosis and treatment plan
Goal: Understand your diagnosis and treatment plan needs, including medications if applicable.
Instructions: Know your diagnosis, underlying causes and treatment plan options, including medications if applicable. Consult with your health care team to learn about your diagnosis and treatment plan, including medications if applicable.
Discharge Date and Time
Discharge Date/Time: 04/24/25 13:01
Print Language: DANISH
--- NOTE | 2025-04-24 10:49 | CM ---
Reviewed chart. Met with Mr. Louie to review discharge plans. He states he is feeling well and maybe able to go home son. He states prior to admission he resides with his fiance in a two story home with two steps to enter. He states he has a
full flight of steps to get to bedroom/full bathroom. He states he has a powder room on the first floor. He states prior to admission he was independent with ambulation and adls. He states he does not have any DME in the home. He states he has a
prescription plan. We reviewed a home visit by the Transitional Care Nurse. He is agreeable to a home visit. He states he has a supportive family who will be around to assist his care if needed. Medical work-up in progress. The discharge plan is
to return home with his fiance, family support and a home visit by the Transitional Care Nurse when medically stable.
--- NOTE | 2025-04-24 12:30 | PTCARENOTE ---
Patient discharged home - patient and significant other state full understanding of discharge instructions and have no further questions at this time; PIV x1 and telemetry pack removed; Patient belongings taken with patient; 2 view CXR and stairs
completed; CHG shower completed; Patient taken by wheelchair to significant other's vehicle
[2025-04-24] MEDS: NOVOLOG FLEXPEN-MODERATE RESISTANCE SC (12:32)
== END 2025-04-24 13:01 | disposition home or self-care (01) | DRG 236 ==
LOC: CVICU 18:42
PROVIDERS: Nurse Practitioner; Physician Assistant Medical; ADMITTING PHYSICIAN Thoracic Surgery (Cardiothoracic Vascular Surgery); ATTENDING PHYSICIAN Student in an Organized Health Care Education/Training Program; CONSULT PHYSICIAN Internal Medicine; FAMILY PHYSICIAN Family Medicine; OTHER PHYSICIAN Internal Medicine Cardiovascular Disease
PROC: 02100Z9 Bypass Coronary Artery, One Artery from Left Internal Mammary, Open Approach (ICD-10-PCS; 2025-04-21)
PROC: 06BP4ZZ Excision of Right Saphenous Vein, Percutaneous Endoscopic Approach (ICD-10-PCS; 2025-04-21)
PROC: 5A1221Z Performance of Cardiac Output, Continuous (ICD-10-PCS; 2025-04-21)
PROC: 021209W Bypass Coronary Artery, Three Arteries from Aorta with Autologous Venous Tissue, Open Approach (ICD-10-PCS; 2025-04-21)
PROC: B24BZZ4 Ultrasonography of Heart with Aorta, Transesophageal (ICD-10-PCS; 2025-04-21)
PROC: 02L70CK Occlusion of Left Atrial Appendage with Extraluminal Device, Open Approach (ICD-10-PCS; 2025-04-21)
DX: I25.10 Atherosclerotic heart disease of native coronary artery without angina pectoris (principal); I47.20 Ventricular tachycardia, unspecified; I30.8 Other forms of acute pericarditis; D62 Acute posthemorrhagic anemia; J98.11 Atelectasis; E87.1 Hypo-osmolality and hyponatremia; I25.82 Chronic total occlusion of coronary artery; E78.5 Hyperlipidemia, unspecified; F17.290 Nicotine dependence, other tobacco product, uncomplicated; K21.9 Gastro-esophageal reflux disease without esophagitis; J43.9 Emphysema, unspecified; R91.1 Solitary pulmonary nodule; M54.12 Radiculopathy, cervical region; E87.70 Fluid overload, unspecified; E86.1 Hypovolemia; E11.65 Type 2 diabetes mellitus with hyperglycemia; I10 Essential (primary) hypertension; Z59.71 Insufficient health insurance coverage; Z79.82 Long term (current) use of aspirin; Z79.84 Long term (current) use of oral hypoglycemic drugs; Z79.899 Other long term (current) drug therapy
CPT/HCPCS: 71045; 71046; 71250; 80048; 80061; 80076; 81003; 81015; 82330; 82565; 82805; 82810; 82947; 82962; 83036; 83735; 84132; 84302; 84520; 85014; 85018; 85027; 85049; 85610; 85730; 86850; 86900; 86901; 86920; 93005; 93306; 93312; 93320; 93325; 93880; 93923; 93930; 94002; 94060; J2916; P9045

== ENCOUNTER → 2025-04-25 12:16 | Outpatient (REF) | payer BC, SELFPAY | LOC: RAD 12:16 | PROVIDERS: ATTENDING PHYSICIAN Student in an Organized Health Care Education/Training Program; FAMILY PHYSICIAN Family Medicine | DX: Z95.1 Presence of aortocoronary bypass graft (principal) | CPT/HCPCS: 71046 ==

== ENCOUNTER 2025-04-26 16:42 | Observation (INO) | payer BC, SELFPAY ==
[2025-04-26] VITALS (12 sets, daily range): BP systolic 104–131; BP diastolic 59–71; BMI 23.4; BMI 22.6
[2025-04-26 13:36] LABS: Hematocrit 33.7 % (39.0-52.0); Hemoglobin 11.2 g/dL (13.0-18.0); Mean Corp Hgb Conc. 33.2 g/dL (33.0-37.0); Mean Corpuscular Volume 89.9 fL (80.0-94.0); Nucleated Red Blood Cells % 0 % (-); Platelet Count 369 10^3/uL (130-400); Red Cell Dist. Width 14.2 % (11.5-14.5)
[2025-04-26 13:55] LABS: ALT (SGPT) 19 U/L (0-50); AST (SGOT) 25 U/L (17-59); Albumin 3.6 g/dl (3.5-5.0); Alkaline Phosphatase 134 U/L (38-126); Blood Urea Nitrogen 19 mg/dl (9-20); Calcium 8.6 mg/dl (8.4-10.2); Carbon Dioxide 13 mmol/L (22-30); Chloride 104 mmol/L (98-107); Glucose 173 mg/dl (70-99); Potassium 4.8 mmol/L (3.5-5.1); Sodium 136 mmol/L (135-145); Total Protein 6.5 g/dl (6.3-8.2); eGFR > 60.00
[2025-04-26 14:04] LABS: COVID-19 Antigen Negative (Negative)
--- NOTE | 2025-04-26 14:11 | ED.GENMED ---
History of Present Illness
<Lalo Neff DO - Last Filed: 04/26/25 14:18>
General
Chief Complaint: Weight Changes
Time Seen by Provider: 04/26/25 13:17
<Ivelisse Bustillo PA-C - Last Filed: 04/26/25 17:58>
General
Source: patient
Exam Limitations: none
Nursing documentation reviewed up to this point in time: agreed with
History of Present Illness
History of Present Illness:
see MDM
Past History
<Lalo Neff DO - Last Filed: 04/26/25 14:18>
Social History
Employment: Employed
Phy Exam
<Ivelisse Bustillo PA-C - Last Filed: 04/26/25 17:58>
Physical Exam
Physical Exam:
see MDM
Scores
<Ivelisse Bustillo PA-C - Last Filed: 04/26/25 17:58>
Heart Failure Risk
Heart Failure Risk Score: Not Applicable
Course
<Lalo Neff DO - Last Filed: 04/26/25 14:18>
Orders/Labs/Results
Orders:
Orders
04/26/25 13:28
B-Hydroxybutyrate Urgent
Comment: ADD ON
Complete Blood Count/With Diff Urgent
Comprehensive Metabolic Panel Urgent
04/26/25 13:30
COVID-19 Antigen Urgent
Source: Nasal Swab
Influenza A+B Rapid Molecular Urgent
TERI Source: Nasal Swab
Specimen Description:
04/26/25 14:12
0.9% Sodium Chloride 500 ml [Nss] 500 ml IV BOLUS
04/26/25 14:13
Add On- LAB Urgent
Tests Added?: BHB
04/26/25 14:15
Lactic Acid Urgent
Venous Blood Gas Urgent
%Oxygen/Room Air: 21
04/26/25 15:20
Urinalysis Reflex To Culture Urgent
Date Specimen was Collected: 04/26/25
Time Specimen was Collected: 15:17
Urine Microscopic Reflex Cult Urgent
04/26/25 15:35
Admit/Transfer Patient As Directed
Co-Sign Provider:
Level of Care: Observation services
Assign to:: IVU
Physician / Group: Dino
Diagnosis: ketoacidosis
PRN Pain Medication Management As Directed
May give lesser potent ordered pain med per pt: Yes
preference::
Protocol:: Medication orders for pain may be administered in a
manner that supports deferring to patient preference
when the pt is:
- Requesting an ordered lesser potent pain medication.
Least to most potent pain medications are defined
as: acetaminophen < NSAID < tramadol < opioids
(morphine, oxycodone, hydromorphone).
- Requesting a lesser dose of the same medication IF
ORDERED.
- Requesting a less intrusive route of administration
if both routes are prescribed by the provider (PO <
IV).
04/26/25 15:37
Code Status As Directed
Resuscitation Status: Full Code
04/26/25 16:22
Electrocardiogram (*1) Stat
Reason for Study: CAD
04/26/25 16:38
Reg Insulin 100 Units/100 ml [Novolin R Insulin Infusion] 100 units in 100 ml IV NOW
Notify MD As Directed
Notify physician if: BEDSIDE GLUCOSE MONITORING Q1H
NOTIFY PROVIDER WITH EACH GLUCOSE RESULT
NURSE TO CONTACT PROVIDER WHEN GLUCOSE REACHES 250 TO OBTAIN ORDERS FOR D5 0.45% NaCl
04/26/25 16:40
Basic Metabolic Panel Q4H
04/26/25 17:00
Dextrose 5%/0.45%Sodchl 1000ML [D5/0.45%NaCl] 1,000 ml IV 100 mls/hr
04/26/25 20:40
Basic Metabolic Panel Q4H
04/27/25 00:45
Basic Metabolic Panel Q4H
Abnormal Lab Results
04/26/25 04/26/25 04/26/25
13:28 14:15 15:20
WBC 11.6 H 10^3/uL
(4.8-10.8)
RBC 3.75 L 10^6/uL
(4.70-6.10)
Hgb 11.2 L g/dL
(13.0-18.0)
Hct 33.7 L %
(39.0-52.0)
Abs Immat Gran (auto) 0.2 H 10^3/uL
(0-0.05)
Absolute Neuts (auto) 9.0 H 10^3/uL
(1.4-6.5)
Absolute Monos (auto) 0.9 H 10^3/uL
(0.1-0.6)
Immature Gran % 1.6 H %
(0-0.5)
Neutrophils % 77.8 H %
(42.2-75.2)
Lymphocytes % 12.0 L %
(20.5-51.1)
VBG pH 7.27 L
(7.32-7.43)
VBG pCO2 29 L mmHg
(35-48)
VBG HCO3 13.3 L mmol/L
(22-27)
Carbon Dioxide 13 L* mmol/L
(22-30)
Glucose 173 H mg/dl
(70-99)
Alkaline Phosphatase 134 H U/L
(38-126)
Urine Ketones 3+ A
(Negative)
Ur Occult Blood Reflex 1+ A
(Negative)
Urine Bacteria (Reflex) Few A
(Negative)
Urine Glucose 4+ A
(Negative)
Urine Albumin (Reflex) 1+ A
(Neg - Trace)
B-Hydroxybutyrate 6.84 H mmol/L
(0.02-0.27)
04/26/25 13:28
Vital Signs
Initial and Last Documented VS:
Initial Vital Signs
Temp Pulse Resp BP Pulse Ox
36.7 C 90 18 106/64 98
04/26/25 12:24 04/26/25 12:24 04/26/25 12:24 04/26/25 12:24 04/26/25 12:24
Last Documented Vital Signs
Temp Pulse Resp BP Pulse Ox
36.7 C 83 24 114/60 96
04/26/25 12:24 04/26/25 17:45 04/26/25 17:45 04/26/25 17:00 04/26/25 17:45
<Ivelisse Bustillo PA-C - Last Filed: 04/26/25 17:58>
Orders/Labs/Results
Orders:
Orders
04/26/25 13:28
B-Hydroxybutyrate Urgent
Comment: ADD ON
Complete Blood Count/With Diff Urgent
Comprehensive Metabolic Panel Urgent
04/26/25 13:30
COVID-19 Antigen Urgent
Source: Nasal Swab
Influenza A+B Rapid Molecular Urgent
TERI Source: Nasal Swab
Specimen Description:
04/26/25 14:12
0.9% Sodium Chloride 500 ml [Nss] 500 ml IV BOLUS
04/26/25 14:13
Add On- LAB Urgent
Tests Added?: BHB
04/26/25 14:15
Lactic Acid Urgent
Venous Blood Gas Urgent
%Oxygen/Room Air: 21
04/26/25 15:20
Urinalysis Reflex To Culture Urgent
Date Specimen was Collected: 04/26/25
Time Specimen was Collected: 15:17
Urine Microscopic Reflex Cult Urgent
04/26/25 15:35
Admit/Transfer Patient As Directed
Co-Sign Provider:
Level of Care: Observation services
Assign to:: IVU
Physician / Group: Dino
Diagnosis: ketoacidosis
PRN Pain Medication Management As Directed
May give lesser potent ordered pain med per pt: Yes
preference::
Protocol:: Medication orders for pain may be administered in a
manner that supports deferring to patient preference
when the pt is:
- Requesting an ordered lesser potent pain medication.
Least to most potent pain medications are defined
as: acetaminophen < NSAID < tramadol < opioids
(morphine, oxycodone, hydromorphone).
- Requesting a lesser dose of the same medication IF
ORDERED.
- Requesting a less intrusive route of administration
if both routes are prescribed by the provider (PO <
IV).
04/26/25 15:37
Code Status As Directed
Resuscitation Status: Full Code
04/26/25 16:22
Electrocardiogram (*1) Stat
Reason for Study: CAD
04/26/25 16:38
Reg Insulin 100 Units/100 ml [Novolin R Insulin Infusion] 100 units in 100 ml IV NOW
Notify MD As Directed
Notify physician if: BEDSIDE GLUCOSE MONITORING Q1H
NOTIFY PROVIDER WITH EACH GLUCOSE RESULT
NURSE TO CONTACT PROVIDER WHEN GLUCOSE REACHES 250 TO OBTAIN ORDERS FOR D5 0.45% NaCl
04/26/25 16:40
Basic Metabolic Panel Q4H
04/26/25 17:00
Dextrose 5%/0.45%Sodchl 1000ML [D5/0.45%NaCl] 1,000 ml IV 100 mls/hr
04/26/25 20:40
Basic Metabolic Panel Q4H
04/27/25 00:45
Basic Metabolic Panel Q4H
Abnormal Lab Results
04/26/25 04/26/25 04/26/25
13:28 14:15 15:20
WBC 11.6 H 10^3/uL
(4.8-10.8)
RBC 3.75 L 10^6/uL
(4.70-6.10)
Hgb 11.2 L g/dL
(13.0-18.0)
Hct 33.7 L %
(39.0-52.0)
Abs Immat Gran (auto) 0.2 H 10^3/uL
(0-0.05)
Absolute Neuts (auto) 9.0 H 10^3/uL
(1.4-6.5)
Absolute Monos (auto) 0.9 H 10^3/uL
(0.1-0.6)
Immature Gran % 1.6 H %
(0-0.5)
Neutrophils % 77.8 H %
(42.2-75.2)
Lymphocytes % 12.0 L %
(20.5-51.1)
VBG pH 7.27 L
(7.32-7.43)
VBG pCO2 29 L mmHg
(35-48)
VBG HCO3 13.3 L mmol/L
(22-27)
Carbon Dioxide 13 L* mmol/L
(22-30)
Glucose 173 H mg/dl
(70-99)
Alkaline Phosphatase 134 H U/L
(38-126)
Urine Ketones 3+ A
(Negative)
Ur Occult Blood Reflex 1+ A
(Negative)
Urine Bacteria (Reflex) Few A
(Negative)
Urine Glucose 4+ A
(Negative)
Urine Albumin (Reflex) 1+ A
(Neg - Trace)
B-Hydroxybutyrate 6.84 H mmol/L
(0.02-0.27)
04/26/25 13:28
Vital Signs
Initial and Last Documented VS:
Initial Vital Signs
Temp Pulse Resp BP Pulse Ox
36.7 C 90 18 106/64 98
04/26/25 12:24 04/26/25 12:24 04/26/25 12:24 04/26/25 12:24 04/26/25 12:24
Last Documented Vital Signs
Temp Pulse Resp BP Pulse Ox
36.7 C 83 24 114/60 96
04/26/25 12:24 04/26/25 17:45 04/26/25 17:45 04/26/25 17:00 04/26/25 17:45
<Ivelisse Bustillo PA-C - Last Filed: 04/26/25 17:58>
MDM/Problems Addressed
MDM/Problems Addressed:
Note:
CHIEF COMPLAINT(S)
Postoperative weakness and nausea.
HISTORY OF PRESENT ILLNESS
The patient is a 64-year-old male with a recent history of a coronary artery bypass grafting (CABG), four-vessel, and left atrial appendage clipping performed a few days ago. Postoperatively, he reports a weight loss of 13 pounds, particularly after
starting to eat again yesterday. He experienced nausea and vomited twice, once yesterday and once today, about an hour after eating; however, he has managed to keep down some mandarin and Ensure. His blood glucose levels are poorly controlled with
an A1C of approximately 11, and he has been recently started on a new regimen of medications, including Metoprolol, Lasix, and Valsartan. The patient reports no abdominal pain or diarrhea but does mention belching and passing gas.
PAST MEDICAL AND SURGICAL HISTORY
The patient underwent CABG and left atrial appendage clipping recently. He also mentioned a previous surgery for tuberculosis.
SOCIAL DETERMINANTS AFFECTING HEALTH
The patient reports significant weakness and fatigue, potentially related to the new medication regimen and recent surgery. He feels constantly sleepy and experiences difficulty keeping his eyes open.
SOCIAL HISTORY
The patient does not provide details about alcohol or substance use, but a history of diabetes and smoking cessation is implied.
MEDICATIONS
The patients current medications include Metoprolol, Lasix, and Valsartan. He was also queried about use of Metformin and Valsartan, with the latter confirmed as part of the regimen.
REVIEW OF SYSTEMS
- Gastrointestinal: Nausea, vomiting (twice), no abdominal pain or diarrhea.
- General: Significant weakness, fatigue, weight loss of 13 pounds.
PHYSICAL EXAM
GENERAL: Alert , in no apparent distress generalized fatigue seems wiped out
EYE: pupils equal and reactive
NECK: Supple
ENT: o/p clr, dry mouth
CARDIAC: Regular rate and rhythm . Moderate edema, slightly pitting, wounds on his right lower extremity seem to be healing well, good pulse
LUNGS: Clear breath sounds bilaterally, no acute respiratory distress, no wheezes/rales/rhonchi
ABDOMEN: Soft, without focal tenderness, no r/g, no cvat, normal bowel sounds
NEUROLOGICAL: Alert and oriented, no focal neuro deficits
SKIN: Warm and dry, skin intact. Incisions are healing
Substernal chest, right lower extremity
MUSCULOSKELETAL: Mild edema, well perfused. neg mino's sign
PSYCH: Normal and appropriate interaction.
Nursing notes reviewed and vital signs reviewed.
PROBLEM LIST
- Acute Problems:
- Postoperative nausea and vomiting
- Weight loss
- Weakness and fatigue
- Dehydration
- Possible electrolyte imbalance
- Chronic Problems:
- Diabetes mellitus with current medication adjustments
PLAN
The patient may need to be admitted for further hydration and monitoring of the electrolyte imbalance. Continued assessment of the new medication regimen and its contributions to the patients symptoms is indicated, and a decision to potentially keep
the patient overnight for observation will be made.
DIFFERENTIAL DIAGNOSIS
The Differential Diagnosis includes, in no particular order and is not limited to:
1. Postoperative ileus
2. Dehydration
3. Medication-induced nausea or vomiting
4. Diabetic gastroparesis
5. Electrolyte imbalance
6. Insufficient glycemic control
7. Gastroesophageal reflux
8. Sepsis or infection
9. Metabolic acidosis
10. Myocardial infarction or cardiac complication
CABG x 4 on 02/18
d/c on 04/24; was not compliant with metformin, A1C was 11
left the hospital on many new meds, including restarting metformin, lasix, metoprolol, farxiga, asa/plavix, colchicine
here wiht weight loss, dec po intake, vomit x 2, fatigue
here he looks a little dry
stable vitals
seems wiped out
bicarb 13 with AG 19, bg 170s
venous ph 7.27
lactic normal
bhb high
likely starvation ketosis, could be euglycemic dka
caused by farxiga
d/w ct surgery dr. sun
will defer to nephro for recs for bicarb in fluids
accepted to dr. sun's service
<Lalo Neff DO - Last Filed: 04/26/25 14:18>
*Pulse Oximetry
SaO2: 97
Oxygen Mode of Delivery: Room air
<Ivelisse Bustillo PA-C - Last Filed: 04/26/25 17:58>
*Pulse Oximetry
Patient hypoxic: no (96)
*Critical Care Note
Total Time (30-74mins, 75-104mins- exclusive of procedures): Not Applicable
ED Attending Note
<Lalo Neff DO - Last Filed: 04/26/25 14:18>
ED Attending Note
Patient seen and examined by attending physician: Yes
I performed the substantive portion of visit, reviewed & personally made and approve the management plan that is documented in note by myself or AMBAR.: Yes
ED Attending Note:
I evaluated the patient at bedside. The patient appears generally weak since his coronary bypass surgery. His bicarb is only 13. Glucose is just slightly high at 173. Giving 500 mL IV fluids.
-
Portions of this chart may have been created with voice recognition software.� Occasional wrong word or��sound alike� substitutions may have occurred due to the inherent limitations of voice recognition software.
Discharge Plan
Departure
Patient Disposition: Admit
Date of Disposition: 04/26/25
Time of Disposition: 15:24
Admit to: Telemetry
Admit to doctor: dino
Presentation/result/management discussed w/ accepting MD/DO: dino
Condition: Fair
Covid-19: Not Applicable
Discharge Problem:
Dehydration, Metabolic acidosis, increased anion gap, starvation ketosis
Interventions
Interventions:
*Neglect/Abuse Screening Last Done: 04/26/25 12:24
*Risk Screen - Suicide (C-SSRS) Last Done: 04/26/25 12:24
[2025-04-26] MEDS: NSS 500 IV (14:17)
[2025-04-26 14:22] LABS: Venous Blood Gas B.E. -12.3 mmol/L (-4 to +4); Venous Blood Gas O2 Sat % 80.2 %
[2025-04-26 15:54] LABS: Urine Character Clear (Clear)
--- NOTE | 2025-04-26 16:06 | CON.HOSP ---
Consultation
-
Requesting Provider: Dr Lori Palacios
Performing Provider: Dr. Tom Ceja
Reason for Consultation: Normoglycemic DKA
Family Physician
-
Family Physician: NOT KNOW UNKNOWN - PT DOES
Chief Complaint
-
Nausea, vomiting
History of Present Illness
The patient is a 64-year-old male with a recent history of a coronary artery bypass grafting (CABG), four-vessel, and left atrial appendage clipping performed on April 20 and discharged home on April 24, was having poor appetite at
home, nausea and vomited twice. Had visiting nurse today who advised to go back to the ER.
Patient looks tired, still have some nausea but no vomiting, no chest pain, unless with coughing, no recent fever or chills, no abdominal pain.
Initial blood work in the ER shows evidence of high anion gap metabolic acidosis.
Will be admitted for normoglycemic DKA.
Medical History
Past Medical History
Past Medical History: Reports CAD, HTN and NIDDM
Additional Past Medical History:
Multivessel Coronary Artery Disease
Type 2 diabetes mellitus (A1C 11.4)
2. Hyperlipidemia
3. Former smoker, current vaping
4. V tach with syncope
5. Mild emphysema on chest CT
6. Pulmonary nodules RML 11 mm
7. Cervical radiculopathy
Past Surgical History: Reports Cardiac
Additional Past Surgical History:
CABG x 4. left atrial appendage clip (04/20/25)
S/P repair of deviated septum, 2018
Social History
Tobacco: Vaping
Alcohol: Occasional
Personal: Partner
Living: With Family
Employment: Employed
Family History
Family History: Reviewed & Not Pertinent
Allergies / Home Medications
Allergies reflects when Allergies were last updated in [facility].
Home Medications with original date entered in [facility]
Allergy/Medication List:
Allergies
Allergy/AdvReac Type Severity Reaction Status Date / Time
No Known Allergies Allergy Unverified 09/11/12 14:10
Home Medications
dapagliflozin propanediol 5 mg tablet (Farxiga) 5 mg PO DAILY Diabetes 04/18/25
clopidogrel 75 mg tablet 75 mg PO DAILY Blood clot prevention/tx #30 tabs 04/24/25
colchicine 0.6 mg tablet 0.6 mg PO DAILY pericarditis #30 tabs 04/24/25
furosemide 20 mg tablet 20 mg PO DAILY Fluid retention/Swelling #10 tabs 04/24/25
metoprolol succinate 25 mg tablet,extended release 24 hr 12.5 mg (1/2 x 25 mg) PO DAILY Heart disease/condition #30 tabs 04/24/25
pantoprazole 40 mg tablet,delayed release 40 mg PO DAILY GI protection while on Plavix #30 tabs 04/24/25
rosuvastatin 20 mg tablet 20 mg PO QPM High cholesterol #30 tabs 04/24/25
aspirin 81 mg tablet,delayed release 81 mg PO DAILY 04/26/25
metformin 500 mg tablet 1,500 mg PO DAILY 04/26/25
metoclopramide HCl 5 mg tablet 5 mg PO BID 04/26/25
Review of Systems
-
History Source: Patient and Family
Constitutional: Reports Weight Loss and Fatigue
EENT: Denies Sore Throat, Mouth Pain or Mouth Swelling
Respiratory: Reports Cough and Trouble Breathing (With stocking and exertion); Denies Hemoptysis
Cardiac: Reports Chest Pain (With coughing); Denies Syncope
Abdomen/GI: Reports Nausea and Vomiting; Denies Abdominal Pain, Diarrhea, Constipated, Bloody Stools or Black Stools
: Denies Dysuria, Frequency, Flank Pain or Incontinence
Musculoskeletal: Denies Joint Pain, Joint Swelling or Muscle Pain
Skin: Denies Itching or Rash
Neurological: Reports Weakness; Denies Dizzy, Headache or Numbness
Endocrine: Denies Polyuria, Polydipsia or Temp Intolerance
Hematologic/Lymphatic: Denies Bleeding, Swollen Glands or Bruising
Psych: Reports Calm
Physical Exam
Vital Signs
Vital Signs
Temp Pulse Resp BP Pulse Ox
98.1 F 87 24 106/59 97
04/26/25 12:24 04/26/25 15:30 04/26/25 15:30 04/26/25 15:00 04/26/25 15:30
Physical Exam
General: Well Developed, Well Nourished and No Apparent Distress
HEENT: Normocephalic, Moist Mucous Membranes and Atraumatic
Respiratory: Rales
Cardiac: S1/S2, Regular Rhythm and Other (Sternal scar clean); Negative Murmur or Rub
GI: Soft, Non Tender, Non Distended and Normal Bowel Sounds
Rectal: Deferred by Provider
Musculoskeletal: No Clubbing, No Cyanosis and No Edema
Skin: Negative Rash
Neuro: Nonfocal/Grossly Intact
Laboratory Results
-
Laboratory Results
04/26/25 13:28
04/26/25 13:28
Lactic Acid 1.1 mmol/L (0.7-2.0) 04/26/25 14:15
Total Bilirubin 0.7 mg/dl (0.2-1.3) 04/26/25 13:28
AST 25 U/L (17-59) 04/26/25 13:28
ALT 19 U/L (0-50) 04/26/25 13:28
Alkaline Phosphatase 134 U/L (38-126) H 04/26/25 13:28
Impression / Plan
-
IMPRESSION:
64-year-old male with recent CABG (4-vessel) and AGGIE clipping on 04/20, discharged 04/24.
Presents with poor oral intake, nausea, and two episodes of vomiting; no chest pain except with cough, no fever/chills, no abdominal pain.
Physical exam: Appears tired, mild nausea, hemodynamically stable.
Labs:
High anion gap metabolic acidosis (CO? 13 mmol/L).
Glucose 173 mg/dL (normoglycemic).
Normal lactate (1.1 mmol/L).
Mildly elevated alkaline phosphatase (134 U/L).
Diagnosis: Normoglycemic diabetic ketoacidosis (likely SGLT2 inhibitor-related or due to poor intake post-op).
Assessment/plan:
Normoglycemic DKA
Admit to monitored setting (IVU).
Hold Farxiga.
Fluid resuscitation:
Will use D5 normal saline since blood sugar less than 250
Insulin infusion:
Begin IV insulin at 3 units/h to be continued until anion gap closed
Electrolyte management:
Monitor K+ closely; replace as needed.
Monitor:
Hourly glucose monitor.
BMP and anion gap every 4 hours.
Consults:
Diabetic nurse practitioner for discharge insulin regimen, most recent hemoglobin A1c 11.4, patient will probably need insulin on discharge.
History of multivessel Coronary Artery Disease, s/p recent CABG 04/20/2025
Patient denies chest pain (only with coughing)
Previous hospitalization echocardiogram reviewed:
Ejection fraction is 60-65% by Bee's method of discs.
Normal left ventricular size and function.
Mild concentric left ventricular hypertrophy.
Right ventricular size and systolic function are within normal limits.
Cardiology consulted
Advised to use incentive spirometer
Continue aspirin/Plavix/statin
History COPD / Emphysema
Recent PFT: moderate COPD; emphysema noted on imaging.
Encourage incentive spirometry, out-of-bed ambulation, early mobility.
Recent postop acute blood loss anemia
Hemoglobin stable
Lung Nodule
11 mm RML nodule with emphysema; needs outpatient workup (PET-CT/tissue diagnosis).
Chronic Conditions
Emphysema/COPD: outpatient follow up with Pulm.
History of vape smoking --> no smoking after discharge
Hyperlipidemia---> continue statin
GERD ---> continue pantoprazole
CODE STATUS: Full code
Diet: NPO
Family communication: Discussed with family at bedside
Disposition: Admit to the IVU
Total time spent on today's encounter was 75 minutes which included time spent in counseling the patient/family regarding diagnosis and treatment plan as listed above, goals of care, and symptom management. Case was discussed with nursing staff,
specialists, and care coordinators/case management. All labs and imaging personally reviewed by me. Remainder the time spent in detailed review of previous records, lab data, imaging, and other medical provider documentation.
Part of this note was created using voice recognition system. Occasional wrong word or �sound alike� substitutions may have inadvertently occurred due to the inherent limitations of voice recognition software. If noted kindly bring it to my
attention for correction.
--- NOTE | 2025-04-26 16:14 | CON.CAR ---
Consultation
Consultation Request
Date/Time Consultation Requested: 04/26/2025 at 4 PM
Date/Time Consultation Performed: 04/26/2025 at 4:15 PM
Requesting Provider: Dr Palacios
Performing Provider: Dr. Ana Holley MD
Reason for Consultation: Recent CABG/coronary disease
Medical History
-
Chief Complaint: Nausea and vomiting DKA
History of Present Illness:
Patient was recently discharged from the hospital 04/24/2025 after CABG x 4 (TRAYLOR to the LAD, SVG to OM1 sequenced to OM 2, SVG to PDA) and left atrial appendage clip (04/20/2025). He has history of type 2 diabetes with prior hemoglobin A1c 11.4%.
He just received his home diabetes glucose monitor. He has cardiovascular risk factors including hyperlipidemia and former smoker. He has moderate COPD. Prior to last hospital stay he had recurrent syncope secondary to ventricular tachycardia.
Cardiac catheterization 04/17/2025 at [facility] with multivessel coronary disease. Left ventricular ejection fraction 04/18/2025 with ejection fraction 60 to 65% and no significant valve disease.
He now presents with experiencing nausea and vomiting. He tells me even in hospital he did not have good appetite. He is doing okay with ice chips. Historically blood glucose has been poorly controlled. Labs consistent with possible DKA.
He is afebrile. White blood count is mildly elevated but downtrending since hospital discharge. Ketones and glucose noted in his urine. B hydroxybutyrate was elevated at 6.84. EKG without acute abnormality.
He is negative for influenza. He is negative for COVID.
He tells me he did cough and he has a bandage over sternal wound to be assessed by CT surgery. He has not noted purulent drainage.
He denies chest pain and palpitations.
Family is at the bedside.
Past Medical History
Past Medical History: Arrhythmias, CAD, COPD, GERD, HTN, Hypercholesterolemia, NIDDM and Other (Pre-CABG history of syncope secondary to VT; pulmonary nodules; cervical radiculopathy)
Past Surgical History: Cardiac (Status post CABG x 4 04/2025)
Social History
Tobacco: Former Smoker (Was vaping at time of last admission)
Living: With Family
Family History
Family History: Other (Father valvular heart disease, mother from gastric cancer)
Allergies / Home Medications
Allergy/AdvReac Type Severity Reaction Status Date / Time
No Known Allergies Allergy Unverified 09/11/12 14:10
�Medication �Instructions �Recorded �Confirmed �Type
dapagliflozin propanediol 5 mg 5 mg PO DAILY Diabetes 04/18/25 04/26/25 History
tablet (Farxiga)
clopidogrel 75 mg tablet 75 mg PO DAILY Blood clot 04/24/25 04/26/25 Rx
prevention/tx #30 tabs
colchicine 0.6 mg tablet 0.6 mg PO DAILY pericarditis #30 04/24/25 04/26/25 Rx
tabs
furosemide 20 mg tablet 20 mg PO DAILY Fluid 04/24/25 04/26/25 Rx
retention/Swelling #10 tabs
metoprolol succinate 25 mg 12.5 mg (1/2 x 25 mg) PO DAILY 04/24/25 04/26/25 Rx
tablet,extended release 24 hr Heart disease/condition #30 tabs
pantoprazole 40 mg tablet,delayed 40 mg PO DAILY GI protection while 04/24/25 04/26/25 Rx
release on Plavix #30 tabs
rosuvastatin 20 mg tablet 20 mg PO QPM High cholesterol #30 04/24/25 04/26/25 Rx
tabs
aspirin 81 mg tablet,delayed 81 mg PO DAILY 04/26/25 04/26/25 History
release
metformin 500 mg tablet 1,500 mg PO DAILY 04/26/25 04/26/25 History
metoclopramide HCl 5 mg tablet 5 mg PO BID 04/26/25 04/26/25 History
Review of Systems
-
History Source: Patient
All other systems: Negative unless noted
Abdomen/GI: Nausea, Vomiting and Other (Poor appetite)
Physical Exam
Vital Signs
Temp Pulse Resp BP Pulse Ox
98.1 F 87 24 106/59 97
04/26/25 12:24 04/26/25 15:30 04/26/25 15:30 04/26/25 15:00 04/26/25 15:30
Lab Results
04/26/25 13:28
04/26/25 13:28
General: Well developed, well nourished in NAD.
Heart: Non displaced PMI, RRR, no murmurs, No S3, S4, no rubs.
Sternal wound covered
Lungs: Clear to auscultation anteriorly bilaterally, no wheeze, rhonchi, rubs bilaterally,
Extremities: No clubbing, cyanosis and trace edema bilaterally.
Neuro: Grossly nonfocal, awake,
Impression / Plan
-
Impression:
Nausea, vomiting likely DKA (normal lactic acid)
Coronary artery disease status post CABG times 4-04/20/25 (TRAYLOR to the LAD, SVG to OM, OM 2 sequential, SVG to PDA) for multivessel coronary disease
Left atrial appendage clip IntraOp 04/20/2025
Recurrent syncope secondary to ventricular tachycardia preop
Type 2 diabetes historically not well-controlled
Hyperlipidemia
GERD
History of smoking/tobacco abuse
Pulmonary nodules
Cervical radiculopathy
Cardiac catheterization from 04/17/2025 at [facility]: Multivessel coronary artery disease 70% proximal to mid LAD with IFR of 0.80. Left circumflex: 80% proximal stenosis at bifurcation of OM1. 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
Echo DH Apr 18 2025: Ejection fraction is 60-65%, mild LVH, no significant valve dz.
Plan:
Recently was discharged from the hospital 04/24/2025 after CABG x 4 left atrial appendage clip. He now presented with GI symptomatology.
Nausea and vomiting, increased glucose, anion gap, ketones and glucose in his urine and increased beta hydroxybutyrate possibly consistent with DKA
Defer to primary service would recommend consulting hospitalist service
Likely needs diabetic teaching/education
Hold Farxiga and metformin
Likely needs hydration which he will tolerate given normal left ventricular ejection fraction and recent CABG
Exclude other causes of above symptomatology
-Check EKG--no acute abnormality
- Consider to check chest x-ray
-White blood count has been trending down since hospital discharge and not febrile no obvious infection
- CT surgery to assess surgical wounds
Multivessel coronary disease -s/p CABG x4 TRAYLOR-LAD, SVG-OM1, OM2 seq, SVG-PDA, AGGIE clip 04/20/25
Normal LVEF
Continue usual postop care per CT surgery
Continue risk factor modification
Continue antiplatelet therapy, on aspirin and Plavix
Prior to CABG in the setting of ischemia he presented with episode of VT and syncope.
Follow telemetry
Check EKG
Aggressive electrolyte management per primary service
Diabetes
Needs tight diabetic control
Defer to primary service/hospitalist/early childhood special educator
Hyperlipidemia
Continue treatment
Normal LFTs noted
Data Reviewed
-
EKG: Tracing Personally Visualized and interpreted and Report Reviewed by me
Radiology: Report Reviewed by me
Labs: Labs Reviewed by me
Old Records: Reviewed
[2025-04-26 16:20] LABS: Urine Squamous Cell 16-20 /LPF (Few)
[2025-04-26 16:21] LABS: Urine Red Blood Cell 0-2 /HPF (0-2)
[2025-04-26 17:09] LABS: Glucose - Point of Care 134 mg/dl (70-99)
[2025-04-26] MEDS: REGLAN 10 MG IV (17:20)
[2025-04-26] MEDS: D5/0.45%NACL 1000 IV (17:29)
[2025-04-26] MEDS: NOVOLIN R INSULIN INFUSION 100 IV (17:31)
--- NOTE | 2025-04-26 17:43 | HPS.HSE ---
Family Physician
-
Family Physician: Dr. Chadwick Licea MD.
Outpatient Chute Operator: Jose Juan Lemon MD.
Inpatient Chute Operator: [facility] Cardiology, Dr. Ana Holley MD.
Chief Complaint
-
Nausea, multiple episodes of vomiting, 13 pound weight loss over 2 days, and weakness status post CABG x 4
History of Present Illness
Patient is an extremely pleasant 64-year-old male well-known to the cardiothoracic surgery service having previously undergone CABG x 4 as well as a left atrial appendage clip on 04/20/[address] Philip MD. patient progressed well and had an
uneventful postoperative course. He was discharged to home on postoperative day 4.
Patient presents today 04/26/2025 to [facility] emergency department with chief complaints of nausea, multiple episodes of vomiting, weakness, and a 13 pound weight loss over 48 hours. Patient was seen by cardiothoracic surgery's visiting nurse who
noted his weight loss and associated nausea and vomiting. She instructed the patient to present to the emergency department.
Subsequent workup revealed a high anion gap metabolic acidosis with a blood glucose of 173, and a normal lactate of 1.1, indicating normoglycemic diabetic ketoacidosis. This was likely due to the patient taking his Farxiga and metformin with poor
dietary intake. Patient's fianc� states he was refusing to eat food and was not taking any supplemental protein shakes.
CT surgery was notified, and presented to the emergency department for evaluation and admission to cardiothoracic surgery service for further management.
Medical History
Past Medical History
Past Medical History: Reports Other
Additional Past Medical History:
CAD status post CABG x 4
Hyperlipidemia
Diabetes mellitus type 2 on oral therapy
GERD
Mild emphysema on CT scan
Former smoker, current vaping up until surgery. Claims he has not vaped since discharge.
Pulmonary nodules, right middle lobe 11 mm
Cervical radiculopathy
Past Surgical History: Reports Other
Additional Past Surgical History:
Coronary artery bypass grafting x 4 with TRAYLOR�LAD, SVG�OM1 sequenced to OM 2, SVG�PDA and left atrial appendage clip by Dr. Palacios on 04/20/25
Social History
Tobacco: Former Smoker (Current vapor up until surgery. Patient states that since discharge she has not vaped)
Alcohol: Occasional
Drug: None
Personal: Other (Engaged)
Living: With Family
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
Family History
Family History: Other (Patient's father is alive at the age of 89 and suffers with valvular heart disease. Patient's mother is at the age of 65 secondary to gastric cancer)
Allergies / Home Medications
Allergies reflects when Allergies were last updated in [employer].
Home Medications with original date entered in [employer]
Allergy/Medication List:
Home Medications Table - record
�Medication �Instructions �Recorded �Confirmed
dapagliflozin propanediol 5 mg 5 mg PO DAILY Diabetes 04/18/25 04/26/25
tablet (Farxiga)
clopidogrel 75 mg tablet 75 mg PO DAILY Blood clot 04/24/25 04/26/25
prevention/tx #30 tabs
colchicine 0.6 mg tablet 0.6 mg PO DAILY pericarditis #30 04/24/25 04/26/25
tabs
furosemide 20 mg tablet 20 mg PO DAILY Fluid 04/24/25 04/26/25
retention/Swelling #10 tabs
metoprolol succinate 25 mg 12.5 mg (1/2 x 25 mg) PO DAILY 04/24/25 04/26/25
tablet,extended release 24 hr Heart disease/condition #30 tabs
pantoprazole 40 mg tablet,delayed 40 mg PO DAILY GI protection while 04/24/25 04/26/25
release on Plavix #30 tabs
rosuvastatin 20 mg tablet 20 mg PO QPM High cholesterol #30 04/24/25 04/26/25
tabs
aspirin 81 mg tablet,delayed 81 mg PO DAILY 04/26/25 04/26/25
release
metformin 500 mg tablet 1,500 mg PO DAILY 04/26/25 04/26/25
metoclopramide HCl 5 mg tablet 5 mg PO BID 04/26/25 04/26/25
Review of Systems
-
Constitutional: Reports Weight Loss (13 pounds over 48 hours) and Fatigue; Denies Fever, Weight Gain, Night Sweats or Chills
EENT: Denies Sore Throat, Mouth Pain, Mouth Swelling or Runny Nose
Respiratory: Denies Cough, Hemoptysis or Trouble Breathing
Cardiac: Denies Chest Pain, Diaphoresis, Palpitations or Syncope
Abdomen/GI: Reports Nausea and Vomiting (Multiple episodes); Denies Abdominal Pain, Diarrhea, Constipated or Black Stools
: Denies Dysuria, Frequency, Flank Pain or Incontinence
Musculoskeletal: Denies Joint Pain, Joint Swelling, Muscle Pain or Edema
Skin: Denies Itching or Rash
Neurological: Reports Weakness; Denies Dizzy, Headache or Numbness
Endocrine: Reports See HPI
Hematologic/Lymphatic: Reports No Symptoms
Psych: Reports Calm
Physical Exam
Vital Signs
Vital Signs
Temp Pulse Resp BP Pulse Ox
98.1 F 87 27 114/60 97
04/26/25 12:24 04/26/25 17:30 04/26/25 17:30 04/26/25 17:00 04/26/25 17:00
Physical Exam
General: Well Developed, Well Nourished and No Apparent Distress
HEENT: NormoCephalic, Atraumatic, PERRLA and Neck Nontender
Respiratory: Clear; No Wheezes, Rales, Rhonchi, Crackles or Accessory Resp Muscle Use
Cardiac: S1/S2 and Regular Rhythm; No Murmur, Rub, Gallop or Carotid Bruits
GI: Soft, Non Tender, Non Distended and Normal Bowel Sounds
Rectal: Deferred by Provider
Genito-urinary: Deferred by me
Musculoskeletal: No Clubbing, No Cyanosis and No Edema
Skin: Warm and Dry; No Rash
Neuro: AO x 3, No Motor Deficits, Cranial Nerves Intact and No Sensory Deficits; No Slurred Speech or Facial Droop
Psych: Calm
Laboratory Results
-
04/26/25 13:28
04/26/25 23:40
Laboratory Results
Lactic Acid 1.1 mmol/L (0.7-2.0) 04/26/25 14:15
Total Bilirubin 0.7 mg/dl (0.2-1.3) 04/26/25 13:28
AST 25 U/L (17-59) 04/26/25 13:28
ALT 19 U/L (0-50) 04/26/25 13:28
Alkaline Phosphatase 134 U/L (38-126) H 04/26/25 13:28
Impression/Plan
-
IMPRESSION/PLAN:
64-year-old male status post CABG x 4 and left atrial appendage clip
- Patient's case discussed with attending physician, admit to cardiothoracic surgery service
- Continue aspirin 81 mg/d, Plavix 75 mg/d, Toprol-XL 12.5 mg/day, and Crestor 20 mg p.o. every PM
- Patient was discharged on Lasix 20 mg daily, will hold for now and defer to cardiology
- Continue colchicine 0.6 mg/day for postoperative pericarditis
- Consult cardiology for routine postoperative medical management as well as recommendations for diuresis as patient will likely receive a large amount of fluid for DKA resuscitation
Normoglycemic DKA
- Admit to monitored setting ICU
- Hold Farxiga and metformin
- Consult to hospitalist/medicine for DKA management with fluid and insulin drip
- Consult nephrology for metabolic acidosis
Nausea
- Reglan 5 mg twice daily
GERD
- Continue Protonix 40 mg daily
Bowel regimen
-MiraLAX daily as needed
- Dulcolax suppository every 48 hours as needed
--- NOTE | 2025-04-26 18:20 | W.CON.NEPH ---
Consultation
-
Date/Time Consultation Requested: 04/26/25 1600
Date/Time Consultation Performed: 04/26/25 1615
Requesting Provider: Tom Williamson
Performing Provider: Taniya Ortiz
Reason for Consultation: Met acidosis
Medical History
-
Chief Complaint: Nausea, vomiting
History of Present Illness:
The patient is a 64-year-old male with a recent history of a coronary artery bypass grafting (CABG) , four-vessel, and left atrial appendage clipping performed on April 20 and discharged home on April 24, presented to the hospital
with the ongoing decreased oral intake, nausea and vomiting. He reports appetite is slightly improved however he has not back to his baseline. He feels very weak. denies any dizziness fever. Has mild coughing but no shortness of breath or chest
pain. No abdominal pain. Denies any dysuria or diarrhea. Had visiting nurse today who advised to Come to the ER.
Initial blood work in the ER shows evidence of high anion gap metabolic acidosis, elevated beta hydroxybutyrate 6.8 with a bicarb level of 13 suspicion of normoglycemic DKA. nephrology consulted for management of metabolic acidosis. His
creatinine is at 1 and 0.8 is baseline. his sternal incision has been healing well.
Past Medical History
Arrhythmias, CAD, COPD, GERD, HTN, Hypercholesterolemia, NIDDM (Pre-CABG history of syncope secondary to VT; pulmonary nodules; cervical radiculopathy
Past Surgical History: Other (Status post CABG x 4 04/2025, S/P repair of deviated septum, 2018)
Social History
Tobacco: Former Smoker (vaping till last admission)
Alcohol: Occasional
Living: With Family
Employment: Employed
Family History
no kidney disease
Allergies / Home Medications
Allergy/AdvReac Type Severity Reaction Status Date / Time
No Known Allergies Allergy Unverified 09/11/12 14:10
�Medication �Instructions �Recorded �Confirmed �Type
dapagliflozin propanediol 5 mg 5 mg PO DAILY Diabetes 04/18/25 04/26/25 History
tablet (Farxiga)
clopidogrel 75 mg tablet 75 mg PO DAILY Blood clot 04/24/25 04/26/25 Rx
prevention/tx #30 tabs
colchicine 0.6 mg tablet 0.6 mg PO DAILY pericarditis #30 04/24/25 04/26/25 Rx
tabs
furosemide 20 mg tablet 20 mg PO DAILY Fluid 04/24/25 04/26/25 Rx
retention/Swelling #10 tabs
metoprolol succinate 25 mg 12.5 mg (1/2 x 25 mg) PO DAILY 04/24/25 04/26/25 Rx
tablet,extended release 24 hr Heart disease/condition #30 tabs
pantoprazole 40 mg tablet,delayed 40 mg PO DAILY GI protection while 04/24/25 04/26/25 Rx
release on Plavix #30 tabs
rosuvastatin 20 mg tablet 20 mg PO QPM High cholesterol #30 04/24/25 04/26/25 Rx
tabs
aspirin 81 mg tablet,delayed 81 mg PO DAILY 04/26/25 04/26/25 History
release
metformin 500 mg tablet 1,500 mg PO DAILY 04/26/25 04/26/25 History
metoclopramide HCl 5 mg tablet 5 mg PO BID 04/26/25 04/26/25 History
Review of Systems
-
All other systems: Negative unless noted
Physical Exam
Vital Signs
Vital Signs
Temp Pulse Resp BP Pulse Ox
97.6 F 105 24 131/71 96
04/26/25 18:17 04/26/25 18:08 04/26/25 17:59 04/26/25 18:00 04/26/25 17:45
Lab Results
WBC 11.6 10^3/uL (4.8-10.8) H 04/26/25 13:28
RBC 3.75 10^6/uL (4.70-6.10) L 04/26/25 13:28
Hgb 11.2 g/dL (13.0-18.0) L 04/26/25 13:28
Hct 33.7 % (39.0-52.0) L 04/26/25 13:28
Plt Count 369 10^3/uL (130-400) D 04/26/25 13:28
eGFR > 60.00 04/26/25 13:28
Glucose Cancelled 04/26/25 23:40
Albumin 3.6 g/dl (3.5-5.0) 04/26/25 13:28
Abnormal Lab Results
04/26/25 04/26/25 04/26/25
13:28 14:15 15:20
WBC 11.6 H
RBC 3.75 L
Hgb 11.2 L
Hct 33.7 L
Abs Immat Gran (auto) 0.2 H
Absolute Neuts (auto) 9.0 H
Absolute Monos (auto) 0.9 H
Immature Gran % 1.6 H
Neutrophils % 77.8 H
Lymphocytes % 12.0 L
VBG pH 7.27 L
VBG pCO2 29 L
VBG HCO3 13.3 L
Carbon Dioxide 13 L*
Glucose 173 H
Alkaline Phosphatase 134 H
Urine Ketones 3+ A
Ur Occult Blood Reflex 1+ A
Urine Bacteria (Reflex) Few A
Urine Glucose 4+ A
Urine Albumin (Reflex) 1+ A
B-Hydroxybutyrate 6.84 H
POC Glucose
04/26/25
17:07
WBC
RBC
Hgb
Hct
Abs Immat Gran (auto)
Absolute Neuts (auto)
Absolute Monos (auto)
Immature Gran %
Neutrophils %
Lymphocytes %
VBG pH
VBG pCO2
VBG HCO3
Carbon Dioxide
Glucose
Alkaline Phosphatase
Urine Ketones
Ur Occult Blood Reflex
Urine Bacteria (Reflex)
Urine Glucose
Urine Albumin (Reflex)
B-Hydroxybutyrate
POC Glucose 134 H
Physical Exam
General: Awake, Alert, Oriented, AOx3 and No Distress
HEENT: EOMI, Anicteric, Facial Symmetry and No JVD
Respiratory: Clear, Rhonchi, Normal Excursion and Other (decreased BS)
Cardiac: S1/S2 and Regular Rate/Rhythm
Breast: Deferred by me
Abdomen: Soft, Nontender and Nondistended
Rectal: Deferred by Provider
Musculoskeletal: No Cyanosis and Edema (1+)
Skin: No Rash, Warm and Dry
Neuro: Nonfocal/Grossly Intact
Psych: Mood/afflect pleasant, Insight/judgement good and Appropriate
Assessment/Plan
-
IMP:
Normoglycemic DKA
History of multivessel Coronary Artery Disease, s/p recent CABG 04/20/2025
History COPD / Emphysema
Recent postop acute blood loss anemia
Lung Nodule
Emphysema/COPD
History of vape smoking
Hyperlipidemia
GERD
PLan:
A/w n/v, poor po intake
A gap met acidosis with ketones in UA and high B hydroxybutyrate
BG not sog high suspect euglycemic DKA
agree with IVF and insulin gtt, hold farxiga
metformin held, lactic acid normal
follow labs tonight if acidosis not improving should switch to Bicarb IVF
Cr slightly up at 1 from 0.8 baseline , no REGAN yet
Bp stable
encourage solute intake
d/w pt and family
d/w hospitalist
[2025-04-26] MEDS: CRESTOR 20 MG PO (18:32)
[2025-04-26 18:42] LABS: Glucose - Point of Care 152 mg/dl (70-99)
--- NOTE | 2025-04-26 19:05 | PTCARENOTE ---
Patient arrived into room 3362 with COMMISSION[employer]ER. Insulin gtt and IVF infusing via Right hand and Right AC PIVs. Oriented to room and use of call munoz. Patient appears depressed, flat and withdrawn, giving one word answers. NSR/ST w/ PACs on telemetry. RA.
Tolerating ice chips. Surgical incisions intact, no drainage or redness. Denies any pain or nausea at this time. Admission questions complete. BMP sent. Call munoz and tray table within reach.
[2025-04-26 19:18] LABS: Blood Urea Nitrogen 17 mg/dl (9-20); Calcium 8.4 mg/dl (8.4-10.2); Carbon Dioxide 12 mmol/L (22-30); Chloride 105 mmol/L (98-107); Estimated Creatinine Clearance 80 ml/min; Glucose 149 mg/dl (70-99); Potassium 3.4 mmol/L (3.5-5.1); Sodium 136 mmol/L (135-145); eGFR > 60.00
--- NOTE | 2025-04-26 19:34 | W.PN.UPDATE ---
Update Note
Progress Note Update
DKA patient
[2025-04-26] MEDS: REGLAN 5 MG PO (19:50)
[2025-04-26] MEDS: SODIUM BICARBONATE 50 MEQ IV (19:50)
[2025-04-26 20:02] LABS: Glucose - Point of Care 121 mg/dl (70-99)
[2025-04-26] MEDS: D5/0.45%NSS with KCL 20 MEQ 1000 IV (20:02)
[2025-04-26 21:03] LABS: Glucose - Point of Care 122 mg/dl (70-99)
[2025-04-26 22:03] LABS: Glucose - Point of Care 137 mg/dl (70-99)
[2025-04-26 23:03] LABS: Glucose - Point of Care 151 mg/dl (70-99)
--- NOTE | 2025-04-26 23:13 | PTCARENOTE ---
Pt received at 19:00. Initial assessment as documented, assessment unchanged. Safe environment maintained, call munoz within reach. Insulin gtt continues as ordered.
[2025-04-26 23:53] LABS: Blood Urea Nitrogen 15 mg/dl (9-20); Calcium 8.1 mg/dl (8.4-10.2); Carbon Dioxide 17 mmol/L (22-30); Chloride 106 mmol/L (98-107); Estimated Creatinine Clearance 103 ml/min; Glucose 140 mg/dl (70-99); Potassium 3.6 mmol/L (3.5-5.1); Sodium 136 mmol/L (135-145); eGFR > 60.00
[2025-04-27] VITALS (11 sets, daily range): BP systolic 105–129; BP diastolic 55–70; BMI 22.4
[2025-04-27 00:02] LABS: Glucose - Point of Care 124 mg/dl (70-99)
[2025-04-27 01:11] LABS: Glucose - Point of Care 119 mg/dl (70-99)
[2025-04-27 02:14] LABS: Glucose - Point of Care 139 mg/dl (70-99)
[2025-04-27 03:02] LABS: Glucose - Point of Care 145 mg/dl (70-99)
[2025-04-27 03:12] LABS: Hematocrit 26.6 % (39.0-52.0); Hemoglobin 9.1 g/dL (13.0-18.0); Mean Corp Hgb Conc. 34.2 g/dL (33.0-37.0); Mean Corpuscular Volume 89.9 fL (80.0-94.0); Platelet Count 324 10^3/uL (130-400); Red Cell Dist. Width 13.8 % (11.5-14.5)
[2025-04-27 03:36] LABS: Blood Urea Nitrogen 14 mg/dl (9-20); Calcium 8.0 mg/dl (8.4-10.2); Carbon Dioxide 22 mmol/L (22-30); Chloride 107 mmol/L (98-107); Estimated Creatinine Clearance 90 ml/min; Glucose 135 mg/dl (70-99); Magnesium 2.1 mg/dl (1.6-2.3); Potassium 3.5 mmol/L (3.5-5.1); Sodium 137 mmol/L (135-145); eGFR > 60.00
[2025-04-27 04:08] LABS: Glucose - Point of Care 133 mg/dl (70-99)
[2025-04-27] MEDS: D5/0.45%NSS with KCL 20 MEQ 1000 IV ×2 (04:12→10:50)
[2025-04-27 05:01] LABS: Glucose - Point of Care 152 mg/dl (70-99)
--- NOTE | 2025-04-27 05:50 | PTCARENOTE ---
Assumed care from Kaylyn Sandra RN.
[2025-04-27 06:04] LABS: Glucose - Point of Care 149 mg/dl (70-99)
--- NOTE | 2025-04-27 07:04 | W.PN.CT ---
Today's Communication / Plan
-
64-year-old male status post CABG x 4 and left atrial appendage clip readmitted on 04/26/25 with normoglycemic DKA
Normoglyemic DKA
-Managment of Norm DKA per Hospitalist/medicine received 2 L of D4 1/2 NSS with 20 meq of K+ in addition to 500 mL NSS bolus.
-Insulin gtt management per Sort Line/Critical Care
-Nephorology consulted input appreciated.
Nausea
-Continue Reglan 5 mg BID, discontinue once nausea resolves.
GERD
-Continue Protnix 40 mg daily
s/p CABG x4, ELAA
-Continue home meds (ASA 81 mg/d, Plavix 75 mg/d, Toprol XL 12.5 mg/d, and Crestor 20 mg QPM
-Cardiology consulted for routine postoperative medical management as well as recommendations for diuresis as patient will likely receive a large amount of fluid for DKA resuscitation
-Lasix 20 mg daily x10 days on hold, assess need for diuresis, cards input appreciated
-Continue Colchicine 0.6 mg/d for postoperative pericarditis
Bowel regimen
Patient's case discussed with attending physician. Continue primary management per CT Surgery
Continue current level of care. Will likely be able to downgrade out of ICU once patient is transitioned off insulin gtt and tolerating cardiac/diabetic diet.
Assessment / Plan
-
64-year-old male status post CABG x 4 and left atrial appendage clip readmitted on 04/26/25 with normoglycemic DKA
Normoglyemic DKA
-Managment of Norm DKA per Hospitalist/medicine received 2 L of D4 1/2 NSS with 20 meq of K+ in addition to 500 mL NSS bolus.
-Insulin gtt management per Sort Line/Critical Care
-Nephorology consulted input appreciated.
Nausea
-Continue Reglan 5 mg BID, discontinue once nausea resolves.
GERD
-Continue Protnix 40 mg daily
s/p CABG x4, ELAA
-Continue home meds (ASA 81 mg/d, Plavix 75 mg/d, Toprol XL 12.5 mg/d, and Crestor 20 mg QPM
-Cardiology consulted for routine postoperative medical management as well as recommendations for diuresis as patient will likely receive a large amount of fluid for DKA resuscitation
-Lasix 20 mg daily x10 days on hold, assess need for diuresis, cards input appreciated
-Continue Colchicine 0.6 mg/d for postoperative pericarditis
Bowel regimen
Patient's case discussed with attending physician. Continue primary management per CT Surgery
Continue current level of care. Will likely be able to downgrade out of ICU once patient is transitioned off insulin gtt and tolerating cardiac/diabetic diet.
Discussed patient care with: Cardiology, Nursing, Pharmacy and Care Team
Subjective
Procedure
S/p CABG x4, ELAA on 04/20/[address] Philip MD.
-
Date of Service: April 27, 2025
Objective Data
-
Lab Results
04/27/25 02:55
04/27/25 02:55
Vital Signs
Vital Signs
Temp Pulse Resp BP Pulse Ox
97.4 F 73 16 108/58 95
04/27/25 03:12 04/27/25 06:00 04/27/25 06:00 04/27/25 06:00 04/26/25 18:27
CT Intake/Output/Weight
04/26/25 04/27/25 04/27/25
18:59 06:59 18:59
Output Total 600 / 600
Balance -600 / -600
SaO2: 95
Physical Exam
-
General: AOx3
Cardiovascular: Regular rate & rhythm, No Murmurs, No Rub and No Gallop
Respiratory: Clear and Equal
Sternum: Stable (small amount of serous drainage noted from mid sternal incision )
Incision: Clean, Dry (small amount of serous drainage noted from mid sternal incision ) and Intact
Extremities: No Edema
[2025-04-27 07:06] LABS: Glucose - Point of Care 195 mg/dl (70-99)
[2025-04-27 08:10] LABS: Glucose - Point of Care 154 mg/dl (70-99)
[2025-04-27] MEDS: PLAVIX 75 MG PO (08:56)
[2025-04-27] MEDS: REGLAN 5 MG PO (08:57)
[2025-04-27] MEDS: PROTONIX 40 MG PO (08:58)
[2025-04-27] MEDS: COLCHICINE 0.6 MG PO (08:58)
[2025-04-27] MEDS: ASPIR LOW (ENTERIC COATED) 81 MG PO (08:59)
[2025-04-27] MEDS: TOPROL XL 12.5 MG PO (08:59)
[2025-04-27 09:05] LABS: Glucose - Point of Care 154 mg/dl (70-99)
[2025-04-27 10:08] LABS: Glucose - Point of Care 136 mg/dl (70-99)
--- NOTE | 2025-04-27 10:20 | W.PN.CARDCBS ---
Today's Communication / Plan
-
Monitor telemetry
Defer treatment of relatively euglycemic DKA to primary service and hospitalist
Impression / Plan
-
Impression:
Nausea, vomiting relatively euglycemic DKA (normal lactic acid)
Coronary artery disease status post CABG times 4-04/20/25 (TRAYLOR to the LAD, SVG to OM, OM 2 sequential, SVG to PDA) for multivessel coronary disease
Left atrial appendage clip IntraOp 04/20/2025
PACs/short runs of PAT
Recurrent syncope secondary to ventricular tachycardia preop
Type 2 diabetes historically not well-controlled
Hyperlipidemia
GERD
History of smoking/tobacco abuse
Pulmonary nodules
Cervical radiculopathy
Cardiac catheterization from 04/17/2025 at [facility]: Multivessel coronary artery disease 70% proximal to mid LAD with IFR of 0.80. Left circumflex: 80% proximal stenosis at bifurcation of OM1. 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
Echo DH Apr 18 2025: Ejection fraction is 60-65%, mild LVH, no significant valve dz.
Plan:
Recently was discharged from the hospital 04/24/2025 after CABG x 4 left atrial appendage clip. He now presented with GI symptomatology in the setting of relatively euglycemic DKA..
Nausea and vomiting, increased glucose, anion gap, ketones and glucose in his urine and increased beta hydroxybutyrate possibly consistent with DKA (relatively euglycemic). Bicarbonate is improving. He is status post hydration. Volume status
appears stable. Symptoms have improved.
Defer to hospitalist service
Likely needs diabetic teaching/education
Hold Farxiga (potential etiology) and metformin-defer to hospitalist/primary service
EKG has been stable. (Although read as long QT manual read without significant QT prolongation)
Postsurgical wound per CT surgery.
No obvious infection.
Multivessel coronary disease -s/p CABG x4 TRAYLOR-LAD, SVG-OM1, OM2 seq, SVG-PDA, AGGIE clip 04/20/25
Normal LVEF
Continue usual postop care per CT surgery
Continue risk factor modification
Continue antiplatelet therapy, on aspirin and Plavix
Prior to CABG in the setting of ischemia he presented with episode of VT and syncope.
Follow telemetry
Check EKG
Aggressive electrolyte management per primary service
Diabetes
Needs tight diabetic control
Defer to primary service/hospitalist/religious educator
Hyperlipidemia
Continue treatment
Normal LFTs noted
PACs on telemetry with short run of PAT.
Continue to monitor.
Left atrial appendage occlusion device in place however no report regarding BRAEDEN. Will look into this to make sure patient is fully excluded.
Progress Note - Design Leader
Subjective
Date of Service: April 27, 2025
Feeling better overall. Some neuropathic type pain right leg/foot.
Objective
Labs:
04/27/25 02:55
04/27/25 02:55
Labs
Hgb 9.1 g/dL (13.0-18.0) L 04/27/25 02:55
Hct 26.6 % (39.0-52.0) L 04/27/25 02:55
Plt Count 324 10^3/uL (130-400) 04/27/25 02:55
Sodium 137 mmol/L (135-145) 04/27/25 02:55
Potassium 3.5 mmol/L (3.5-5.1) 04/27/25 02:55
BUN 14 mg/dl (9-20) 04/27/25 02:55
Creatinine 0.8 mg/dL (0.7-1.3) 04/27/25 02:55
Glucose 135 mg/dl (70-99) H 04/27/25 02:55
Vital Signs and I&O:
Vital Signs
Temp Pulse Resp BP Pulse Ox
97.5 F 80 19 119/64 98
04/27/25 07:16 04/27/25 08:59 04/27/25 08:00 04/27/25 08:59 04/27/25 09:05
Vital Signs
Temp Pulse Resp BP Pulse Ox
97.5 F 80 19 119/64 98
04/27/25 07:16 04/27/25 08:59 04/27/25 08:00 04/27/25 08:59 04/27/25 09:05
Intake & Output
04/25/25 04/26/25 04/27/25 04/28/25
06:59 06:59 06:59 06:59
Output Total 600 / 600 700 / 700
Balance -600 / -600 -700 / -700
Physical Exam
Physical Exam
General: Well developed, well nourished in NAD.
Heart: Non displaced PMI, RRR, no murmurs, No S3, S4, no rubs.
Lungs: Clear to auscultation bilaterally, no wheeze, rhonchi, rubs bilaterally,
Extremities: No clubbing, cyanosis or edema bilaterally.
Neuro: Grossly nonfocal, awake, alert and oriented x3.
--- NOTE | 2025-04-27 10:45 | CON.INTV ---
Consultation
Consultation Request
Date/Time Consultation Requested: 04/27/2024
Date/Time Consultation Performed: 04/27/2024
Requesting Provider: Dr. Palacios
Performing Provider: Dr. Michele Linares
Reason for Consultation: DKA
Medical History
-
Chief Complaint: Syncope
History of Present Illness:
Patient is a 64-year-old gentleman with history of diabetes hyperlipidemia, prior history of smoking, recently underwent coronary artery bypass on 04/24/2025 he was discharged from the hospital.
He returns to the emergency room complaining of nausea, vomiting and weakness, 30 pound weight loss in 48 hours.
He was instructed come to the emergency room for evaluation.
He was found to have anion gap metabolic acidosis. Possible ketones.
Suspected euglycemic DKA.
He was admitted for insulin drip and hydration.
Patient is on Farxiga.
He also takes metformin.
Past medical history significant coronary artery disease, ventricular tachycardia, diabetes, hyperlipidemia, gastroesophageal reflux disease, history of smoking close to [id number] smoking history, quit at age 57. Current vaping
Family history. No reported history of lung cancer.
Past Medical History
Past Medical History: Other (See assessment and plan)
Social History
Alcohol: None
Drug: None
Family History
Family History: Reviewed & Not Pertinent
Allergies / Home Medications
Allergies
Allergy/AdvReac Type Severity Reaction Status Date / Time
No Known Allergies Allergy Unverified 09/11/12 14:10
Home Medications
�Medication �Instructions �Recorded �Confirmed �Last Taken �Type
dapagliflozin propanediol 5 mg 5 mg PO DAILY Diabetes 04/18/25 04/26/25 04/26/25 History
tablet (Farxiga)
clopidogrel 75 mg tablet 75 mg PO DAILY Blood clot 04/24/25 04/26/25 04/26/25 Rx
prevention/tx #30 tabs
colchicine 0.6 mg tablet 0.6 mg PO DAILY pericarditis #30 04/24/25 04/26/25 04/26/25 Rx
tabs
furosemide 20 mg tablet 20 mg PO DAILY Fluid 04/24/25 04/26/25 04/26/25 Rx
retention/Swelling #10 tabs
metoprolol succinate 25 mg 12.5 mg (1/2 x 25 mg) PO DAILY 04/24/25 04/26/25 04/26/25 Rx
tablet,extended release 24 hr Heart disease/condition #30 tabs
pantoprazole 40 mg tablet,delayed 40 mg PO DAILY GI protection while 04/24/25 04/26/25 04/26/25 Rx
release on Plavix #30 tabs
rosuvastatin 20 mg tablet 20 mg PO QPM High cholesterol #30 04/24/25 04/26/25 04/25/25 Rx
tabs
aspirin 81 mg tablet,delayed 81 mg PO DAILY 04/26/25 04/26/25 04/26/25 History
release
metformin 500 mg tablet 1,500 mg PO DAILY 04/26/25 04/26/25 04/26/25 History
metoclopramide HCl 5 mg tablet 5 mg PO BID 04/26/25 04/26/25 04/26/25 History
Review of Systems
-
History Source: Patient
All other systems: Negative unless noted
Vitals / Labs / Diagnostic Testing
Vital Signs
Temp Pulse Resp BP Pulse Ox
97.5 F 80 19 119/64 98
04/27/25 07:16 04/27/25 08:59 04/27/25 08:00 04/27/25 08:59 04/27/25 09:05
Lab Data
04/27/25 02:55
04/27/25 02:55
Microbiology
04/26/25 13:30 Nasal Swab Influenza Types A & B (ARIA) - Final
Negative for Influenza A & B, NAAT
Negative results must be combined with clinical observations
and patient history.
Nucleic Acid Amplification test (NAAT)performed on the
[employer] ID NOW platform.
Diagnostic Testing:
Physical Exam
-
HEENT: Normocephalic
Cardiovascular: S1/S2
Respiratory: Non-Labored Respirations
GI: Soft and Non Distended
Neurology: Awake
Skin: Warm and Other (Sternotomy is intact)
General: Comfortable
Assessment
-
-
Patient is a 64-year-old gentleman with newly detected multivessel coronary artery disease, s/p coronary artery bypass graft discharge from the hospital 04/24/2025 returns with poor p.o. intake nausea and vomiting. Found to have metabolic
acidosis possible euglycemic DKA.
Euglycemic DKA-in the setting of Farxiga use.
Normal lactic acid
Normal renal function
Dehydration
Postoperative anemia due to blood loss
Status postcoronary artery bypass-[id number]/20/2025
Plan and recommendations:
Continue DKA protocol
IV fluid hydration continue for now.
Patient denies any nausea or vomiting. He would like to eat if possible.
Insulin drip will continue until anion gap is closed x 2.
Anion gap is closed this morning
Repeat BMP now
If anion gap is closed-then will transition to insulin sliding scale
Continue to hold metformin
Hold Farxiga for now
Recommend diabetes nurse practitioner evaluation at some point
-
If tolerating diet can discontinue IV fluids after discontinuation of insulin drip.
-
Continue cardiac management-seems to be euvolemic.
Sternotomy incision intact without secretions. Healing well.
-
Maintain ICU monitoring for now while insulin drip
-
Critical care statement: A total of 32 minutes of critical care time was provided for this patient today. This includes management of unstable vital signs, evaluation of the patient at bedside, reviewing the patient's pertinent medical records
including ventilator settings, arterial blood gases, radiographs, microbiology, laboratory evaluations and discussion with primary team, critical care nursing, and respiratory therapy.
Other medical diagnoses:
- Lung nodule. 11 mm RML nodule. With concomitant emphysema, needs further work up possibly PET-CT/tissue diagnosis etc. Will pursue further as out patient with [facility] clinic. Follow up information added to the discharge section. Patient updated
regarding the imaging finding, risk of malignancy and need for close follow-up as outpatient.
- Emphysema on imaging. COPD, Moderate severity. Needs additional workup including pulmonary function testing, 6-minute walk test as outpatient.
- History of smoking
- HLD
- DM
- GERD
- Ventricular tachycardia
Critical care statement: A total of 33 minutes of critical care time was provided for this patient today. This includes management of unstable vital signs, evaluation of the patient at bedside, reviewing the patient's pertinent medical records
including ventilator settings, arterial blood gases, radiographs, microbiology, laboratory evaluations and discussion with primary team, critical care nursing, and respiratory therapy.
Data:
CXR 04/2025: 1. Mild central pulmonary vascular congestion.
2. Haziness of the left hemidiaphragm, suggestive of left lower lobe subsegmental atelectasis.
PFT 04/2025: FEV1, 73% of predicted, FEV1/FVC of 60. Moderate obstructive airway disease with positive bronchodilator response.
CT Chest 04/2025: No aortic aneurysm. No calcified plaque of the ascending aorta. Calcified coronary artery plaque formation. Small to moderate hiatal hernia. No apparent hilar or mediastinal mass or enlarged adenopathy.
Mild emphysematous lung pattern.
Right middle lobe 11 mm pulmonary nodule. Occasional scattered nonspecific micronodules. Recommend follow-up PET/CT
ECHO 04/2025: 1. Ejection fraction is 60-65% by Bee's method of discs.
2. Normal left ventricular size and function.
3. Mild concentric left ventricular hypertrophy.
4. Right ventricular size and systolic function are within normal limits.
5. Trace mitral valve regurgitation.
6. Trace tricuspid regurgitation. Estimated pulmonary artery pressure of 28 mmHg assuming a right atrial pressure of 3 mmHg.
7. Aortic calcification.
8. There are no prior studies available for comparison.
[2025-04-27 11:11] LABS: Glucose - Point of Care 131 mg/dl (70-99)
[2025-04-27 11:11] LABS: Glucose - Point of Care 204 mg/dl (70-99)
[2025-04-27 11:41] LABS: Blood Urea Nitrogen 12 mg/dl (9-20); Calcium 8.0 mg/dl (8.4-10.2); Carbon Dioxide 22 mmol/L (22-30); Chloride 105 mmol/L (98-107); Estimated Creatinine Clearance 102 ml/min; Glucose 192 mg/dl (70-99); Magnesium 2.1 mg/dl (1.6-2.3); Potassium 3.8 mmol/L (3.5-5.1); Sodium 135 mmol/L (135-145); eGFR > 60.00
--- NOTE | 2025-04-27 12:00 | W.PN.UPDATE ---
Update Note
Progress Note Update
Anion gap closed x 2
Transition to insulin sliding scale
Advance diet
Transferred to IVU
Critical care team will sign off
Please call with questions
--- NOTE | 2025-04-27 13:01 | W.PN.HOSP.TC ---
Today's Communication/Plan
-
Downgrade from ICU-insulin sliding scale and start Lantus 10 units at night-based on blood sugar readings may consider Premeal insulin
Assessment / Plan
Assessment / Plan
Impression:
64-year-old male with recent CABG (4-vessel) and AGGIE clipping on 04/20, discharged 04/24.
Presents with poor oral intake, nausea, and two episodes of vomiting; no chest pain except with cough, no fever/chills, no abdominal pain.
Physical exam: Appears tired, mild nausea, hemodynamically stable.
Labs:
High anion gap metabolic acidosis (CO? 13 mmol/L).
Glucose 173 mg/dL (normoglycemic).
Normal lactate (1.1 mmol/L).
Mildly elevated alkaline phosphatase (134 U/L).
Diagnosis: Normoglycemic diabetic ketoacidosis (likely SGLT2 inhibitor-related or due to poor intake post-op).
Started initially on insulin drip, gap closed, started subcu insulin.
Assessment/plan:
Normoglycemic DKA
Admit to monitored setting (IVU).
Hold Farxiga.
Fluid resuscitation:
Will use D5 normal saline since blood sugar less than 250
Insulin infusion:
Begin IV insulin at 3 units/h to be continued until anion gap closed
Electrolyte management:
Monitor K+ closely; replace as needed.
Monitor:
Hourly glucose monitor.
BMP and anion gap every 4 hours.
Consults:
Diabetic nurse practitioner for discharge insulin regimen, most recent hemoglobin A1c 11.4, patient will probably need insulin on discharge.
04/27
Gap closed x 2.
Hold IV fluids/IV insulin drip.
Insulin sliding scale.
Start Lantus 10 units at night
History of multivessel Coronary Artery Disease, s/p recent CABG 04/20/2025
Patient denies chest pain (only with coughing)
Previous hospitalization echocardiogram reviewed:
Ejection fraction is 60-65% by Bee's method of discs.
Normal left ventricular size and function.
Mild concentric left ventricular hypertrophy.
Right ventricular size and systolic function are within normal limits.
Cardiology consulted
Advised to use incentive spirometer
Continue aspirin/Plavix/statin
History COPD / Emphysema
Recent PFT: moderate COPD; emphysema noted on imaging.
Encourage incentive spirometry, out-of-bed ambulation, early mobility
Recent postop acute blood loss anemia
Hemoglobin stable
Lung Nodule
11 mm RML nodule with emphysema; needs outpatient workup (PET-CT/tissue diagnosis).
Chronic Conditions
Emphysema/COPD: outpatient follow up with Pulm.
History of vape smoking --> no smoking after discharge
Hyperlipidemia---> continue statin
GERD ---> continue pantoprazole
CODE STATUS: Full code
Diet: Diabetic
Family communication: Discussed with family at bedside
Disposition: Downgrade from ICU-insulin sliding scale and start Lantus 10 units at night-based on blood sugar readings may consider Premeal insulin
Total time spent on today's encounter was 55 minutes which included time spent in counseling the patient/family regarding diagnosis and treatment plan as listed above, goals of care, and symptom management. Case was discussed with nursing staff,
specialists, and care coordinators/case management. All labs and imaging personally reviewed by me. Remainder the time spent in detailed review of previous records, lab data, imaging, and other medical provider documentation.
Part of this note was created using voice recognition system. Occasional wrong word or �sound alike� substitutions may have inadvertently occurred due to the inherent limitations of voice recognition software. If noted kindly bring it to my
attention for correction.
Anticipated Discharge: 24 - 48 hours
Subjective/Interval History
-
Date of Service: April 27, 2025
Patient seen and examined at bedside, denies any chest pain or shortness of breath, no abdominal pain, no nausea, no vomiting, no diarrhea or constipation.
Objective Data
-
Labs:
Laboratory Results
04/27/25 04/27/25 04/27/25
00:45 02:55 11:06
WBC 10.9 H
Hgb 9.1 L
Hct 26.6 L
Plt Count 324
Sodium Cancelled 137 135
Potassium Cancelled 3.5 3.8
Chloride Cancelled 107 105
Carbon Dioxide Cancelled 22 22
BUN Cancelled 14 12
Creatinine Cancelled 0.8 0.7
Glucose Cancelled 135 H 192 H
Calcium Cancelled 8.0 L 8.0 L
Vital Signs:
Vital Signs
Temp Pulse Resp BP Pulse Ox
97.9 F 80 21 120/61 98
04/27/25 11:31 04/27/25 11:00 04/27/25 11:00 04/27/25 10:00 04/27/25 09:05
I&O
04/26/25 04/27/25 04/28/25
06:59 06:59 06:59
Output Total 600 / 600 700 / 700
Balance -600 / -600 -700 / -700
Physical Exam
-
General: Well Developed, Well Nourished, No Apparent Distress and Comfortable
HEENT: Normocephalic, Atraumatic, Moist Mucous Membranes, No Ptosis, PERRLA and Nose Appears Normal
Respiratory: Rales and Non Labored Respirations
Cardiac: Regular Rhythm, S1/S2 and Other (Mediastinal scar clean)
Breast: Deferred by me
GI: Soft, Nontender, Nondistended and Normal Bowel Sounds
Genito-urinary: No Costovertebral Tender
Musculoskeletal: No Clubbing, No Cyanosis and No Edema
Skin: Warm
Neuro: Awake, Alert, Oriented, AO x 3 and No Motor Deficits
Psych: Calm
Data Reviewed
-
Diagnostic Radiology: Image personally visualized and interpreted and Report Reviewed by me
CT Scan: Image personally visualized and interpreted and Report Reviewed by me
Ultrasound: Image personally visualized and interpreted and Report Reviewed by me
MRI: Image personally visualized and interpreted and Report Reviewed by me
Medical Tests (Nuc Med, Echo etc): Image personally visualized and interpreted and Report Reviewed by me
Labs: Labs Reviewed by me
Old Records: Reviewed
--- NOTE | 2025-04-27 13:08 | CM ---
Reviewed chart and met with pt bedside. Lives with his COLLEEN Roland in 2 SH, 2 ABHI. First floor half bath, full flight to second floor bedroom and full bath.
Independent in ADLs, personal care and ambulation at baseline. No assistive devices.
Pt has CABG 04/20/25, sent to ED by Cardiac Transitional Care Nurse.
Confirms prescription coverage.
No hx HH or SNF
PCP: [facility], Dr Licea just retired but will see someone new there
Pharmacy: [facility]
Anticipate discharge home, CM will continue to follow for all discharge planning needs.
[2025-04-27 13:20] LABS: Glucose - Point of Care 142 mg/dl (70-99)
[2025-04-27] MEDS: NOVOLOG FLEXPEN-LOW RESISTANCE SC (13:54)
--- NOTE | 2025-04-27 14:42 | PTCARENOTE ---
Patient off insulin gtt. Diet started; tolerated lunch. Denies any N/V/Abd pain. NSR/ST w/ PACs on telemetry. Up ad cristopher to BR. Surgical incision C/D/I, healing appropriately, no drainage or redness. Insulin education started. Asuncion Hagen, at
bedside. Call munoz and tray table within reach.
--- NOTE | 2025-04-27 16:09 | W.PN.NEPH.PH ---
Today's Communication / Plan
-
we will sign off
Assessment/Plan
-
IMP:
Normoglycemic DKA
History of multivessel Coronary Artery Disease, s/p recent CABG 04/20/2025
History COPD / Emphysema
Recent postop acute blood loss anemia
Lung Nodule
Emphysema/COPD
History of vape smoking
Hyperlipidemia
GERD
PLan:
A/w n/v, poor po intake
A gap met acidosis with ketones in UA and high B hydroxybutyrate
BG not sog high suspect euglycemic DKA
hold farxiga
metformin held, lactic acid normal
status post insulin drip
acidosis resolved
we will sign off on the further renal indication
no renal follow-up needed
-
-
Date of Service: April 27, 2025
CC / HPI / ROS
-
Chief Complaint:
DKA
History of Present Illness:
DKA on
Review of Systems:
no chest pain or shortness of breath
Labs
-
Labs:
WBC 10.9 10^3/uL (4.8-10.8) H 04/27/25 02:55
RBC 2.96 10^6/uL (4.70-6.10) L 04/27/25 02:55
Hgb 9.1 g/dL (13.0-18.0) L 04/27/25 02:55
Hct 26.6 % (39.0-52.0) L 04/27/25 02:55
Plt Count 324 10^3/uL (130-400) 04/27/25 02:55
Sodium 135 mmol/L (135-145) 04/27/25 11:06
Potassium 3.8 mmol/L (3.5-5.1) 04/27/25 11:06
Chloride 105 mmol/L (98-107) 04/27/25 11:06
Carbon Dioxide 22 mmol/L (22-30) 04/27/25 11:06
BUN 12 mg/dl (9-20) 04/27/25 11:06
Creatinine 0.7 mg/dL (0.7-1.3) 04/27/25 11:06
eGFR > 60.00 04/27/25 11:06
Glucose 192 mg/dl (70-99) H 04/27/25 11:06
Calcium 8.0 mg/dl (8.4-10.2) L 04/27/25 11:06
Albumin 3.6 g/dl (3.5-5.0) 04/26/25 13:28
Physical Exam
-
Vital Signs:
Vital Signs
Temp Pulse Resp BP Pulse Ox
98.6 F 84 23 113/56 98
04/27/25 15:36 04/27/25 14:00 04/27/25 14:00 04/27/25 14:00 04/27/25 09:05
Respiratory:: Bilateral: CTA
Lung Excursion:: Normal
Abdomen:: Soft
Bowel Sounds:: Normal
Extremity Edema:: None: Bilateral:
--- NOTE | 2025-04-27 16:28 | PTCARENOTE ---
Report called to EFE Marcial on IVU. Patient transferred via WC to room 3347 on tele monitor. All belongings brought with patient. Fiance at bedside. Pt thankful for care.
--- NOTE | 2025-04-27 16:48 | PTCARENOTE ---
Recieved the patient from ICU in a wheelchair. The patient is aaox3, vital signs are stable. He is 96% on RA. NSR is noted on the monitor. He ambulated to the chair with supervision. His gait is steady. He has no complaints. I oriented his to his
room. His call munoz is within reach.
[2025-04-27] MEDS: NOVOLOG FLEXPEN-LOW RESISTANCE 2 UNITS SC (18:06)
[2025-04-27] MEDS: CRESTOR 20 MG PO (18:06)
--- NOTE | 2025-04-27 18:10 | PTCARENOTE ---
The patient administered 2 units of insulin in his right abdomen using the proper technique.
--- NOTE | 2025-04-27 20:00 | PTCARENOTE ---
Resumed care of pt AAOx3 sitting in chair. HR in the 80's in NSR on the monitor with occasional PVC's. POX 96% on RA. Lungs dec @ bases. + bowel, round abd. Palpable peripheral pulses present. Sternal incision open to air scabbed. Old left wrist
cath site healed ecchymosis noted. Right medial knee surgical graft site scabbed, open to air. Right hand int capped. Right AC capped. Pt denies any complaints at this time. pt ambulatory as needed. Call munoz in reach. Will continue to monitor.
[2025-04-27] MEDS: LANTUS 0.1 UNITS SC (22:01)
[2025-04-28 02:07] VITALS: BP 117/61
[2025-04-28 02:34] LABS: Hematocrit 29.0 % (39.0-52.0); Hemoglobin 9.8 g/dL (13.0-18.0); Mean Corp Hgb Conc. 33.8 g/dL (33.0-37.0); Mean Corpuscular Volume 89.0 fL (80.0-94.0); Platelet Count 343 10^3/uL (130-400); Red Cell Dist. Width 14.4 % (11.5-14.5)
[2025-04-28 03:10] LABS: Blood Urea Nitrogen 11 mg/dl (9-20); Calcium 8.3 mg/dl (8.4-10.2); Carbon Dioxide 24 mmol/L (22-30); Chloride 104 mmol/L (98-107); Estimated Creatinine Clearance 89 ml/min; Glucose 136 mg/dl (70-99); Magnesium 2.1 mg/dl (1.6-2.3); Potassium 3.6 mmol/L (3.5-5.1); Sodium 136 mmol/L (135-145); eGFR > 60.00
[2025-04-28 07:29] VITALS: BP 116/71
[2025-04-28 07:30] VITALS: BP 116/71
[2025-04-28] MEDS: NOVOLOG FLEXPEN-LOW RESISTANCE SC (07:35)
--- NOTE | 2025-04-28 07:48 | W.PN.CT ---
Today's Communication / Plan
-
-feels much better, nausea/vomiting resolved. He was able to tolerate diet yesterday and feels hungry now
-wants to go home
-off IVF. Currently, on Lantus and ISS.
-will hold off Farxiga
-ambulate
-likely d/c home
Assessment / Plan
-
64-year-old male status post CABG x 4 and left atrial appendage clip readmitted on 04/26/25 with normoglycemic DKA
Normoglyemic DKA
-Managment of Norm DKA per Hospitalist/medicine received 2 L of D4 1/2 NSS with 20 meq of K+ in addition to 500 mL NSS bolus.
-Insulin gtt management per [facility] [facility]/Critical Care
-Nephorology consulted input appreciated.
Nausea
-Continue Reglan 5 mg BID, discontinue once nausea resolves.
GERD
-Continue Protnix 40 mg daily
s/p CABG x4, ELAA
-Continue home meds (ASA 81 mg/d, Plavix 75 mg/d, Toprol XL 12.5 mg/d, and Crestor 20 mg QPM
-Cardiology consulted for routine postoperative medical management as well as recommendations for diuresis as patient will likely receive a large amount of fluid for DKA resuscitation
-Lasix 20 mg daily x10 days on hold, assess need for diuresis, cards input appreciated
-Continue Colchicine 0.6 mg/d for postoperative pericarditis
Bowel regimen
Patient's case discussed with attending physician. Continue primary management per CT Surgery
Continue current level of care. Will likely be able to downgrade out of ICU once patient is transitioned off insulin gtt and tolerating cardiac/diabetic diet.
Discussed patient care with: Nursing and Care Team
Subjective
Procedure
S/p CABG x4, ELAA on 04/20/[address] Philip MD.
-
Date of Service: April 28, 2025
Objective Data
-
Lab Results
04/28/25 02:21
04/28/25 02:21
Vital Signs
Vital Signs
Temp Pulse Resp BP Pulse Ox
98.2 F 86 16 116/71 97
04/28/25 07:30 04/28/25 07:30 04/28/25 07:30 04/28/25 07:30 04/28/25 07:30
CT Intake/Output/Weight
04/27/25 04/28/25 04/28/25
18:59 06:59 18:59
Intake Total 480 / 480
Output Total 700 / 700
Balance -700 / -220 480 / -220
SaO2: 97
Physical Exam
-
General: Awake and AOx3
Cardiovascular: Regular rate & rhythm, No Murmurs and No Rub
Respiratory: Clear
Sternum: Stable
Incision: Clean, Dry and Intact (chest incisions are healing well)
Extremities: No Edema
Data Reviewed
-
Lab Results: Results Reviewed
Medications: Active Meds Reviewed
Chest X-Ray: Report Reviewed and Image Reviewed
ECG: Report Reviewed and Image Reviewed
[2025-04-28 08:00] LABS: Glucose - Point of Care 211 mg/dl (70-99)
[2025-04-28 08:00] LABS: Glucose - Point of Care 177 mg/dl (70-99)
[2025-04-28 08:00] LABS: Glucose - Point of Care 148 mg/dl (70-99)
[2025-04-28] MEDS: PROTONIX 40 MG PO (08:44)
[2025-04-28] MEDS: PLAVIX 75 MG PO (08:44)
[2025-04-28] MEDS: COLCHICINE 0.6 MG PO (08:44)
[2025-04-28] MEDS: TOPROL XL 12.5 MG PO (08:44)
[2025-04-28] MEDS: ASPIR LOW (ENTERIC COATED) 81 MG PO (08:44)
--- NOTE | 2025-04-28 09:57 | W.DCSUMMARY ---
Discharge Summary
Discharge Data
Date of Admission: 04/26/25
Date of Discharge: 04/28/25
Total time spent discharging patient (in min): 45
-
Pending Results: No
Hospital Course
HPI: 64-year-old gentleman with history of diabetes hyperlipidemia, prior history of smoking, recently underwent coronary artery bypass on 04/24/2025 he was discharged from the hospital.
He returns to the emergency room complaining of nausea, vomiting and weakness, 30 pound weight loss in 48 hours. He was instructed come to the emergency room for evaluation.He was found to have anion gap metabolic acidosis. Possible ketones.
Suspected euglycemic DKA. He was admitted for insulin drip and hydration.
Hospital course: Patient was admitted into the hospital due to suspected euglycemic DKA brought on by Taisha. Farxiga was placed on hold. He received 2 L of fluids and was started on a insulin drip. By 04/27 his anion gap closed and was
transitioned off insulin drip to a insulin sliding scale, Lantus, and diet was advanced. He was transferred from ICU to IVU. On 04/28 patient's blood sugars seem to be well-controlled. After discussion with the hospitalist it was decided that the
patient will be discharged on 10 units of Lantus at bedtime and metformin was resumed and Farxiga was discontinued indefinitely.
Home medication changes:
Farxiga discontinued.
Discharge Plan
-
Patient Disposition: Home (Routine Discharge)
Discharge Diagnosis/Procedures: Normoglycemic DKA
Condition: Good
Diet: Low Cholesterol, Diabetic, Carb Controlled and Restrict fluids to 64 oz
Activity: No strenuous activity
Driving Restrictions: Not until seen by your Dr
Bathing Restrictions: OK to Shower
Other Services: Cardiac Rehab
Specialty Instructions: Weigh Daily- Call MD for wt gain/loss 3 lbs overnight/5 lbs in 1 week
Activity Restrictions/Additional Instructions:
ACTIVITY:
-No strenuous activity: no heavy lifting, pushing, pulling anything over 15 pounds for one month
-continue to use stairs as tolerated
DRIVING RESTRICTIONS:
-No driving for one month or until approved by your surgeon
WOUND CARE:
-Shower daily. Use soap & water.
-No lotions, creams or powders on incision area.
DIET:
-continue a low fat/low cholesterol diet.
-IF you are diabetic, continue carb controlled diet.
CARDIAC REHAB:
-Please make appointment to start in 5-6 weeks with your local hospital program. (See Cardiac Rehabilitation Discharge Booklet).
SPECIALTY INSTRUCTIONS:
-Weigh yourself daily. Call your physician for any weight gain/loss of 3 lbs overnight or 5 lbs in one week.
-REPORT any clicking noise or uneven appearance of your sternum to your surgeon immediately.
-If you smoke, you are instructed to quit. The [place] smoking hotline phone number is [phone]
Referrals:
UNKNOWN - PT DOES,NOT KNOW [Family Provider]
Prescriptions:
New
insulin glargine [Lantus Solostar U-100 Insulin] 100 unit/mL (3 mL) Insulin Pen
10 unit SC DAILY 30 Days Qty: 5 0RF
(DME) pen needle, diabetic [Sonia Pen Needle] 32 gauge x 5/32' Needle
Qty: 200 0RF
Rx Instructions:
1 box of 200 needles
refer to insulin instructions
Continued
clopidogrel 75 mg Tablet
75 mg PO DAILY Qty: 30 2RF
colchicine 0.6 mg Tablet
0.6 mg PO DAILY Qty: 30 1RF
metoprolol succinate 25 mg Tablet Extended Release 24 Hr
12.5 mg PO DAILY Qty: 30 1RF
rosuvastatin 20 mg Tablet
20 mg PO QPM Qty: 30 0RF
pantoprazole 40 mg Tablet,Delayed Release (Dr/Ec)
40 mg PO DAILY Qty: 30 1RF
metformin 500 mg Tablet
1,500 mg PO DAILY
aspirin 81 mg Tablet,Delayed Release (Dr/Ec)
81 mg PO DAILY
Discontinued
dapagliflozin propanediol [Farxiga] 5 mg Tablet
5 mg PO DAILY
furosemide 20 mg Tablet
20 mg PO DAILY Qty: 10 0RF
metoclopramide HCl 5 mg Tablet
5 mg PO BID
Discharge Orders:
Discharge Patient (As Directed); Ordered 04/28/25
Ordered By: Mavis Chris
Care Plan Goals
Care Plan Goals:
Problem: Readiness for enhanced knowledge related to diagnosis and treatment plan
Goal: Understand your diagnosis and treatment plan needs, including medications if applicable.
Instructions: Know your diagnosis, underlying causes and treatment plan options, including medications if applicable. Consult with your health care team to learn about your diagnosis and treatment plan, including medications if applicable.
Discharge Date and Time
Discharge Date/Time: 04/28/25 11:50
Print Language: QATARI
--- NOTE | 2025-04-28 10:12 | W.PN.CARDCBS ---
Addendum entered and electronically signed by Ranjit Holley MD 04/28/25 11:49:
Patient seen, interviewed and examined by me.
He tells me he has no chest pain shortness of breath palpitations or dizziness. He is excited about going home today.
Well-appearing, no acute distress
Regular rate and rhythm with normal S1 and S2, no S3 no S4. There is a grade 1/6 apical holosystolic murmur and no rubs. PMI is normally placed.
Lungs are clear to auscultation bilaterally without wheezes rales or rhonchi.
Abdomen soft nontender nondistended with normoactive bowel sounds
Extremities show trace pretibial edema bilaterally no clubbing or cyanosis.
Neurologic exam is grossly nonfocal.
Admitted with symptoms of DKA, mild, symptomatically improved.
Diabetic management.
From a cardiac standpoint stable for discharge to home.
Eventually it will be important to know if the left atrial appendage is adequately clipped and we are awaiting BRAEDEN report
Patient will follow-up with [facility] as an outpatient. Not certain if appointment has yet been arranged.
He is present with his . All their questions have been answered.
Original Note:
Today's Communication / Plan
-
continue post op care
diabetic mgmt
in SR. continue toprol
replete K
await intraop BRAEDEN report regarding AGGIE clip
plan for DC
Impression / Plan
-
Impression:
Nausea, vomiting relatively euglycemic DKA (normal lactic acid)
Coronary artery disease status post CABG times 4-04/20/25 (TRAYLOR to the LAD, SVG to OM, OM 2 sequential, SVG to PDA) for multivessel coronary disease
Left atrial appendage clip IntraOp 04/20/2025
PACs/short runs of PAT
Recurrent syncope secondary to ventricular tachycardia preop
Type 2 diabetes historically not well-controlled
Hyperlipidemia
GERD
History of smoking/tobacco abuse
Pulmonary nodules
Cervical radiculopathy
Cardiac catheterization from 04/17/2025 at [facility]: Multivessel coronary artery disease 70% proximal to mid LAD with IFR of 0.80. Left circumflex: 80% proximal stenosis at bifurcation of OM1. RCA: Proximal 100% [employer] SAL[employer]ERSON.
Echo DH Apr 18 2025: Ejection fraction is 60-65%, mild LVH, no significant valve dz.
Plan:
-Recently was discharged from the hospital 04/24/2025 after CABG x 4, left atrial appendage clip. He presented back with GI symptomatology in the setting of relatively euglycemic DKA.
-continue treatment per hospitalist service. symptoms have improved. farxiga stopped
-in SR on review of tele overnight. did have some brief PAT earlier in admission. continue low dose toprol
-Left atrial appendage occlusion device in place however no report regarding BRAEDEN. d/w CT surgery 04/28 who will confirm with anesthesiology
-continue asa, plavix. hgb 9.8
-in setting of initial presentation of VT/syncope resulting in eventual CABG. replete electrolytes. keep K>4, mag>2. replete K
-check BMP/mag in 1 week upon DC
-continue diabetic control. recent hgbA1c was 11.4% on 04/17/25
-plan for DC to home today
-OP follow up with [facility]
-d/w nursing
Progress Note - Commercial Lending Relationship Manager
Subjective
Date of Service: April 28, 2025
feeling well. eager for DC
Objective
Labs:
04/28/25 02:21
04/28/25 02:21
Labs
Hgb 9.8 g/dL (13.0-18.0) L 04/28/25 02:21
Hct 29.0 % (39.0-52.0) L 04/28/25 02:21
Plt Count 343 10^3/uL (130-400) 04/28/25 02:21
Sodium 136 mmol/L (135-145) 04/28/25 02:21
Potassium 3.6 mmol/L (3.5-5.1) 04/28/25 02:21
BUN 11 mg/dl (9-20) 04/28/25 02:21
Creatinine 0.8 mg/dL (0.7-1.3) 04/28/25 02:21
Glucose 136 mg/dl (70-99) H 04/28/25 02:21
Vital Signs and I&O:
Vital Signs
Temp Pulse Resp BP Pulse Ox
98.2 F 89 16 116/71 97
04/28/25 07:30 04/28/25 08:44 04/28/25 07:30 04/28/25 08:44 04/28/25 07:51
Vital Signs
Temp Pulse Resp BP Pulse Ox
98.2 F 89 16 116/71 97
04/28/25 07:30 04/28/25 08:44 04/28/25 07:30 04/28/25 08:44 04/28/25 07:51
Intake & Output
04/26/25 04/27/25 04/28/25 04/29/25
07:59 07:59 07:59 07:59
Intake Total 480 / 480
Output Total 600 / 1300 700 / 700
Balance -600 / -1300 -220 / -220
Physical Exam
Physical Exam
GEN: No distress, awake, alert, oriented x3
HEENT: supple, anicteric, mmm, eomi
LUNGS: CTA B/L, no wheezes/rales
CV: Reg, S1/S2, no murmur
ABD: soft, BS+, NT/ND
EXT: No cyanosis, clubbing, edema
NEURO: Gross non-focal
SKIN: Warm, pink, dry. No rash. Sternotomy incision c/d/i.
--- NOTE | 2025-04-28 10:13 | PTCARENOTE ---
received patient this am sitting up in chair ready to eat breakfast. monitor shows NSR with PVC's. sternum is scabbed over and right knee incision scabbed. TT Theresea Douse for consult of diabetic education. patient is new to insulin, patient able
to give himself injections that was taught previously as per patient.
[2025-04-28] MEDS: KLOR-CON 20 MEQ PO (10:28)
[2025-04-28 11:25] VITALS: BP 115/72
[2025-04-28 11:26] VITALS: BP 115/72
--- NOTE | 2025-04-28 11:32 | W.PN.HOSP.TC ---
Today's Communication/Plan
-
Discharge on Lantus 10 units at night.
Resume metformin.
Discontinue Farxiga
Assessment / Plan
Assessment / Plan
Impression:
64-year-old male with recent CABG (4-vessel) and AGGIE clipping on 04/20, discharged 04/24.
Presents with poor oral intake, nausea, and two episodes of vomiting; no chest pain except with cough, no fever/chills, no abdominal pain.
Physical exam: Appears tired, mild nausea, hemodynamically stable.
Labs:
High anion gap metabolic acidosis (CO? 13 mmol/L).
Glucose 173 mg/dL (normoglycemic).
Normal lactate (1.1 mmol/L).
Mildly elevated alkaline phosphatase (134 U/L).
Diagnosis: Normoglycemic diabetic ketoacidosis (likely SGLT2 inhibitor-related or due to poor intake post-op).
Started initially on insulin drip, gap closed, started subcu insulin.
Discharged on Lantus 10 units at night, resumed metformin
Assessment/plan:
Normoglycemic DKA
Admit to monitored setting (IVU).
Hold Farxiga.
Fluid resuscitation:
Will use D5 normal saline since blood sugar less than 250
Insulin infusion:
Begin IV insulin at 3 units/h to be continued until anion gap closed
Electrolyte management:
Monitor K+ closely; replace as needed.
Monitor:
Hourly glucose monitor.
BMP and anion gap every 4 hours.
Consults:
Diabetic nurse practitioner with Lantus nightly insulin regimen, most recent hemoglobin A1c 11.4, patient will probably need insulin on discharge.
04/27
Gap closed x 2.
Hold IV fluids/IV insulin drip.
Insulin sliding scale.
Start Lantus 10 units at night
04/28
Blood sugar continue to be under control.
Discharged on Lantus 10 units nightly and addition of resume metformin.
Discontinue Farxiga
History of multivessel Coronary Artery Disease, s/p recent CABG 04/20/2025
Patient denies chest pain (only with coughing)
Previous hospitalization echocardiogram reviewed:
Ejection fraction is 60-65% by Bee's method of discs.
Normal left ventricular size and function.
Mild concentric left ventricular hypertrophy.
Right ventricular size and systolic function are within normal limits.
Cardiology consulted
Advised to use incentive spirometer
Continue aspirin/Plavix/statin
History COPD / Emphysema
Recent PFT: moderate COPD; emphysema noted on imaging.
Encourage incentive spirometry, out-of-bed ambulation, early mobility
Recent postop acute blood loss anemia
Hemoglobin stable
Lung Nodule
11 mm RML nodule with emphysema; needs outpatient workup (PET-CT/tissue diagnosis).
Chronic Conditions
Emphysema/COPD: outpatient follow up with Pulm.
History of vape smoking --> no smoking after discharge
Hyperlipidemia---> continue statin
GERD ---> continue pantoprazole
CODE STATUS: Full code
Diet: Diabetic
Family communication: Discussed with family at bedside
Disposition: Okay to be discharged home today
Total time spent on today's encounter was 55 minutes which included time spent in counseling the patient/family regarding diagnosis and treatment plan as listed above, goals of care, and symptom management. Case was discussed with nursing staff,
specialists, and care coordinators/case management. All labs and imaging personally reviewed by me. Remainder the time spent in detailed review of previous records, lab data, imaging, and other medical provider documentation.
Part of this note was created using voice recognition system. Occasional wrong word or �sound alike� substitutions may have inadvertently occurred due to the inherent limitations of voice recognition software. If noted kindly bring it to my
attention for correction.
Anticipated Discharge: Today
Subjective/Interval History
-
Date of Service: April 28, 2025
Patient seen and examined at bedside, denies any chest pain or shortness of breath, no abdominal pain, no nausea, no vomiting, no diarrhea or constipation.
Objective Data
-
Labs:
Laboratory Results
04/28/25
02:21
WBC 9.8
Hgb 9.8 L
Hct 29.0 L
Plt Count 343
Sodium 136
Potassium 3.6
Chloride 104
Carbon Dioxide 24
BUN 11
Creatinine 0.8
Glucose 136 H
Calcium 8.3 L
Vital Signs:
Vital Signs
Temp Pulse Resp BP Pulse Ox
98.7 F 84 16 115/72 98
04/28/25 11:25 04/28/25 11:25 04/28/25 11:25 04/28/25 11:25 04/28/25 11:25
I&O
04/27/25 04/28/25 04/29/25
06:59 06:59 06:59
Intake Total 480 / 480
Output Total 600 / 600 700 / 700
Balance -600 / -600 -220 / -220
Physical Exam
-
General: Well Developed, Well Nourished, No Apparent Distress and Comfortable
HEENT: Normocephalic, Atraumatic, Moist Mucous Membranes, No Ptosis, PERRLA and Nose Appears Normal
Respiratory: Rales and Non Labored Respirations
Cardiac: Regular Rhythm, S1/S2 and Other (Mediastinal scar clean)
Breast: Deferred by me
GI: Soft, Nontender, Nondistended and Normal Bowel Sounds
Genito-urinary: No Costovertebral Tender
Musculoskeletal: No Clubbing, No Cyanosis and No Edema
Skin: Warm
Neuro: Awake, Alert, Oriented, AO x 3 and No Motor Deficits
Psych: Calm
== END 2025-04-28 11:50 | disposition home or self-care (01) ==
LOC: IVU 16:42
PROVIDERS: Clinical Nurse Specialist Acute Care; Physician Assistant; ADMITTING PHYSICIAN Student in an Organized Health Care Education/Training Program; CONSULT PHYSICIAN General Practice; CONSULT PHYSICIAN Internal Medicine; CONSULT PHYSICIAN Internal Medicine Cardiovascular Disease; CONSULT PHYSICIAN Internal Medicine Critical Care Medicine; EMERGENCY PHYSICIAN Emergency Medicine
DX: E11.10 Type 2 diabetes mellitus with ketoacidosis without coma (principal); E87.4 Mixed disorder of acid-base balance; I25.10 Atherosclerotic heart disease of native coronary artery without angina pectoris; I10 Essential (primary) hypertension; M54.12 Radiculopathy, cervical region; Z11.52 Encounter for screening for COVID-19; Z79.899 Other long term (current) drug therapy; Z95.1 Presence of aortocoronary bypass graft; K21.9 Gastro-esophageal reflux disease without esophagitis; F17.290 Nicotine dependence, other tobacco product, uncomplicated; E86.0 Dehydration; J44.9 Chronic obstructive pulmonary disease, unspecified; Z79.82 Long term (current) use of aspirin; E78.5 Hyperlipidemia, unspecified
CPT/HCPCS: 71045; 80048; 80053; 81003; 81015; 82010; 82805; 82962; 83605; 83735; 85025; 85027; 87502; 87811; 93005; 99285; 99406; G0378